=== PATIENT | male | born 1975 | race Caucasian/White ===

== ENCOUNTER 2018-11-10 04:31 | Inpatient (IN) | payer SELFPAY ==
[2018-11-10] VITALS (14 sets, daily range): BP systolic 149–162; BP diastolic 99–115; PULSE 78–105; RESP 14–24; TEMP 36.6–37; O2SAT 95–100; BMI 26.9; BMI 26.6
--- NOTE | 2018-11-10 05:01 | DI.US.S_ITS ---
PROCEDURE: US ABDOMEN COMPLETE INDICATIONS: PANCREATITIS; SEVERE EPIGASTRIC PAIN TECHNIQUE: Real-time scanning was performed of the abdominal and retroperitoneal organs, with image documentation. COMPARISON: [facility], CT, CT ABD PELVIS W CON, 03/27/2016, 20:27. FINDINGS: Liver: Liver is mildly enlarged measuring 20 cm in long axis and homogeneous in echotexture. Gallbladder: Gallbladder is sonographically normal. No gallstones. No gallbladder wall thickening. No pericholecystic fluid. No sonographic Waggoner sign. Biliary ducts: Intrahepatic bile ducts are non-dilated. Extrahepatic bile duct caliber measures 5.6 mm. Normal is 6-7 mm or less in diameter, or 10 mm or less post-cholecystectomy. Pancreas: There is a 1.2 x 1.2 x 1.1 cm lesion with mixed echogenicity in the body of the pancreas which may correspond to hypoattenuating lesion identified by prior CT scan. Doppler evaluation demonstrates no definite internal vascularity associated with the lesion. Spleen: Spleen is normal in size and homogeneous in echotexture. Kidneys: Kidneys are normal in size and echotexture. Right kidney measures 14.1 cm long; left kidney measures 13.9 cm long. No hydronephrosis or nephrolithiasis. No solid masses. Aorta: Visualized aorta is normal in caliber at less than 3 cm. Iliacs: Proximal common iliac arteries are normal in caliber at less than 2.5 cm. IVC: Intrahepatic inferior vena cava is patent. Miscellaneous: No free abdominal fluid. IMPRESSION: 1. Mild hepatomegaly. 2. 1.2 x 1.2 x 1.1 cm hypoechoic lesion with internal calcifications in the body of the pancreas. Recommend CT scan of the abdomen with and without contrast (pancreatic protocol) or MRI with and without contrast (pancreatic protocol) for definitive characterization the finding. 3. No sonographic evidence of cholelithiasis or cholecystitis. 4. No hydronephrosis Dictated by: Lizeth Lambert MD, PhD on 11/10/2018 at 9:01 Approved by: Lizeth Lambert MD, PhD on 11/10/2018 at 9:06
[2018-11-10] MEDS: HYDROMORPHONE 1 MG INJ IV ×3 (05:05→07:27)
[2018-11-10] MEDS: ONDANSETRON 4 MG/2 ML INJ IV (05:06)
--- NOTE | 2018-11-10 05:18 | ED_ITS ---
HPI - Abdominal Pain General Chief Complaint: Abdominal Pain Stated Complaint: STATES PANCREATITIS, BAD Time Seen by Provider: 11/10/18 04:35 Source: patient Mode of arrival: ambulatory Limitations: no limitations History of Present Illness HPI narrative: 42-year-old male smoker with a history of alcoholic pancreatitis presents with 10/10 epigastric pain with radiation to his. It is associated with nausea and vomiting. his symptoms are made worse motion and eating and drinking. He has 4 episodes of pancreatitis in the and this is very consistent with prior episodes. Never had any abdominal surgeries. Fever, shaking chills. Any and is otherwise well free of complaints MD complaint: abdominal pain Onset (ago): hour(s) Pain Consistency: constant Location: epigastric Severity: severe Severity scale (1-10): 10 Quality: stabbing and sharp Radiation: back Relieving factors: nothing Exacerbating factors: eating and movement Context: history of similar episodes Associated symptoms: nausea and vomiting Related Data Allergies Allergy/AdvReac Type Severity Reaction Status Date / Time No Known Drug Allergies Allergy Verified 11/10/18 05:12 Review of Systems Constitutional Denies chills, Denies fever(s), Denies lethargy and Denies weakness Eyes Denies change in vision, Denies eye discharge, Denies irritation and Denies loss of vision ENT Ears, Nose, Mouth, and Throat: Denies change in voice, Denies neck pain and Denies sore throat Cardiovascular Denies chest pain, Denies irregular heart rhythm, Denies lightheadedness, Denies palpitations, Denies dyspnea, Denies dyspnea on exertion and Denies orthopnea Respiratory Denies cough, Denies dyspnea, Denies dyspnea on exertion and Denies wheezing Gastrointestinal Gastrointestinal: Reports abdominal pain, Denies change in bowel habits, Denies diarrhea, Reports nausea and Reports vomiting Genitourinary Denies hematuria, Denies flank pain, Denies urinary incontinence and Denies urinary urgency Musculoskeletal Denies neck pain Integumentary/Breasts Denies pruritus, Denies erythema, Denies rash and Denies wounds Neurologic Denies confusion, Denies loss of vision and Denies weakness Psychiatric Denies anxiety, Denies confusion, Denies depression, Denies homicidal ideation and Denies suicidal ideation Endocrine Denies palpitations Hematologic/Lymphatic Denies easy bruising Allergic/Immunologic Denies wheezing FOR[facility]LY [facility], [facility] Medical History (Updated 11/10/18 @ 05:51 by Ajay Garcia DO) Pancreatitis (Acute) Social History Smoking Status: Current every day smoker Social History Smoking Status: Current every day smoker Exam Narrative Exam Narrative: GENERAL: 42-year-old male appears stated age, obviously very uncomfortable and clutching his upper abdomen HEAD: Atraumatic. Normocephalic. No temporal or scalp tenderness. EYES: Pupils equal round and reactive. Extraocular motions intact. No scleral icterus. No injection or drainage. ENT: Nose without bleeding, purulent drainage or septal hematoma. Throat without erythema, tonsillar hypertrophy or exudate. Uvula midline. Airway patent. NECK: Trachea midline. No JVD or lymphadenopathy. Supple, nontender, no meningeal signs. CARDIOVASCULAR: Regular rate and rhythm without murmurs, gallops, or rubs. RESPIRATORY: Clear to auscultation. Breath sounds equal bilaterally. No wheezes, rales, or rhonchi. GASTROINTESTINAL: Abdomen soft, severe epigastric tenderness to palpation, nond istended. No hepato-splenomegaly, or palpable masses. No guarding. EXTREMITIES: No clubbing, cyanosis, or edema. No joint tenderness, effusion, or edema noted. BACK: Nontender without deformity or crepitance. No flank tenderness. NEURO: AOx3. SKIN: No rash or erythema. Initial Vital Signs Initial Vital Signs: Vital Signs Temperature 98.4 F 11/10/18 04:47 Pulse Rate 105 H 11/10/18 04:47 Respiratory Rate 24 11/10/18 04:47 Blood Pressure 153/104 H 11/10/18 04:47 Pulse Oximetry 100 11/10/18 04:47 Course Orders Ordered: ED Orders 11/10/18 05:00 Complete Blood Count AUTO DIFF Stat Comprehensive Metabolic Panel Stat Ethanol (ETOH) Stat Lactate Dehydrogenase Stat Lipase Stat 11/10/18 05:01 US abdomen complete Stat Potassium Chloride 40 meq/ (Sodium Chloride) 520 mls @ 130 mls/hr IV NOW ONE Stop: 11/10/18 09:38 Last Admin: 11/10/18 05:59 Dose: 130 mls/hr Sodium Chloride (Normal Saline 0.9%) 1,000 mls @ 1,000 mls/hr IV BOLUS ONE Stop: 11/10/18 06:53 Last Admin: 11/10/18 06:00 Dose: 1,000 mls/hr Discontinued Medications Hydromorphone HCl (Dilaudid) 1 mg IV Q15M PRN PRN Reason: Pain, Severe (7-10) Last Admin: 11/10/18 05:47 Dose: 1 mg Admin: 11/10/18 05:05 Dose: 1 mg Sodium Chloride (Normal Saline 0.9%) 500 mls @ 1,000 mls/hr IV BOLUS ONE Stop: 11/10/18 05:27 Last Admin: 11/10/18 05:58 Dose: Not Given Sodium Chloride (Normal Saline 0.9%) 1,000 mls @ 1,000 mls/hr IV BOLUS ONE Stop: 11/10/18 06:11 Last Infusion: 11/10/18 06:00 Dose: 0 mls/hr Admin: 11/10/18 05:50 Dose: 1,000 mls/hr Ondansetron HCl (Zofran) 4 mg IV NOW ONE Stop: 11/10/18 04:59 Last Admin: 11/10/18 05:06 Dose: 4 mg Reevaluation(s) Reevaluation #1: Patient has epigastric pain, worsened with any oral intake, and is obviously intolerant of liquid or oral pain meds. He will require hospitalization for fluid hydration, pain control and stabilization of his condition Consultations Consultation #1: Hospitalist is happy to accept Vital Signs - 8 hr 11/10/18 04:47 11/10/18 05:28 Temperature 98.4 F Pulse Rate 105 H 91 H Respiratory Rate 24 Blood Pressure 153/104 H Blood Pressure [Left Arm] 149/110 H Pulse Oximetry 100 95 MDM - Abdominal Pain Lab Data Result diagrams: 11/10/18 05:00 11/10/18 05:00 Lab Results 11/10/18 11/10/18 11/10/18 Range/Units 05:00 05:00 05:00 WBC 10.8 (4.5-11.0) X10^3/uL RBC 4.17 L (4.5-5.9) X10^6/uL Hgb 13.6 (13.5-17.5) g/dL Hct 38.1 L (41-53) % MCV 91.2 (80-100) fL MCH 32.7 (26-34) PG MCHC 35.9 (30-36) % RDW 12.8 (11.6-14.8) % Plt Count 121 L (150-400) X10^3/uL Neut % (Auto) 82.5 H (50-75) % Lymph % (Auto) 11.0 L (25-40) % Jay % (Auto) 5.9 (3-14) % Eos % (Auto) 0.5 L (2-4) % Baso % (Auto) 0.1 (0-2) % Neut # (Auto) 8900 H (3187-5891) /uL Lymph # (Auto) 1200 (5011-1561) /uL Jay # (Auto) 600 (0-900) /uL Eos # (Auto) 0 (0-450) /uL Baso # (Auto) 0 (0-100) /uL Sodium 133 L (137-145) mmol/L Potassium 3.0 L (3.4-5.1) mmol/L Chloride 87 L (98-107) mmol/L Carbon Dioxide 28 (22-32) mmol/L BUN 27 H (9-20) mg/dL Creatinine 1.00 (0.66-1.25) mg/dL Estimated GFR > 60.0 (>60) mL/min BUN/Creatinine Ratio 27.0 H (6-22) Glucose 319 H (70-100) mg/dL Calcium 9.3 (8.4-10.2) mg/dL Total Bilirubin 2.0 H (0.2-1.3) mg/dL AST 39 (17-59) IU/L ALT 25 (21-72) IU/L Alkaline Phosphatase 94 (38-126) U/L Lactate Dehydrogenase 421 (313-618) U/L Total Protein 8.0 (6.3-8.2) g/dL Albumin 4.7 (3.5-5.0) g/dL Globulin 3.3 (1.7-4.1) g/dL Albumin/Globulin Ratio 1.4 (1.0-2.8) Lipase 1641 H (23-300) U/L Ethyl Alcohol mg/dL 11/10/18 Range/Units 05:00 WBC (4.5-11.0) X10^3/uL RBC (4.5-5.9) X10^6/uL Hgb (13.5-17.5) g/dL Hct (41-53) % MCV (80-100) fL MCH (26-34) PG MCHC (30-36) % RDW (11.6-14.8) % Plt Count (150-400) X10^3/uL Neut % (Auto) (50-75) % Lymph % (Auto) (25-40) % Jay % (Auto) (3-14) % Eos % (Auto) (2-4) % Baso % (Auto) (0-2) % Neut # (Auto) (5183-7957) /uL Lymph # (Auto) (5211-2177) /uL Jay # (Auto) (0-900) /uL Eos # (Auto) (0-450) /uL Baso # (Auto) (0-100) /uL Sodium (137-145) mmol/L Potassium (3.4-5.1) mmol/L Chloride (98-107) mmol/L Carbon Dioxide (22-32) mmol/L BUN (9-20) mg/dL Creatinine (0.66-1.25) mg/dL Estimated GFR (>60) mL/min BUN/Creatinine Ratio (6-22) Glucose (70-100) mg/dL Calcium (8.4-10.2) mg/dL Total Bilirubin (0.2-1.3) mg/dL AST (17-59) IU/L ALT (21-72) IU/L Alkaline Phosphatase (38-126) U/L Lactate Dehydrogenase (313-618) U/L Total Protein (6.3-8.2) g/dL Albumin (3.5-5.0) g/dL Globulin (1.7-4.1) g/dL Albumin/Globulin Ratio (1.0-2.8) Lipase (23-300) U/L Ethyl Alcohol < 10 mg/dL Imaging Data US - abdomen: Radiologist's impression: Prominent pancreas, no GB obstruction Discharge Plan Departure Patient Disposition: Admitted As Inpatient Clinical Impression: Acute hypokalemia Pancreatitis Qualifiers: Chronicity: acute Pancreatitis type: alcohol induced Acute pancreatitis complication: unspecified Qualified Code(s): K85.20 - Alcohol induced acute pancreatitis without necrosis or infection
[2018-11-10 05:22] LABS: Alanine Aminotransferase 25 IU/L (21-72); Albumin 4.7 g/dL (3.5-5.0); Albumin Globulin Ratio 1.4 (1.0-2.8); Alkaline Phosphatase 94 U/L (38-126); Aspartate Aminotransferase 39 IU/L (17-59); Blood Urea Nitrogen 27 mg/dL (9-20); Calcium 9.3 mg/dL (8.4-10.2); Carbon Dioxide 28 mmol/L (22-32); Chloride 87 mmol/L (98-107); Estimated Glomerular Filt Rate > 60.0 mL/min (>60); Globulin 3.3 g/dL (1.7-4.1); Glucose 319 mg/dL (70-100); HEMOLYSIS < 15 (0-50); Lipase 1641 U/L (23-300); Sodium 133 mmol/L (137-145)
[2018-11-10 05:23] LABS: Ethanol (ETOH) < 10 mg/dL; Lactate Dehydrogenase 421 U/L (313-618)
[2018-11-10 05:25] LABS: Add Manual Diff / Slide Review NO; Basophils Absolute Auto 0 /uL (0-100); Basophils Percent Auto 0.1 % (0-2); Eosinophils Absolute Auto 0 /uL (0-450); Eosinophils Percent Auto 0.5 % (2-4); Hematocrit 38.1 % (41-53); Hemoglobin 13.6 g/dL (13.5-17.5); Lymphocytes Absolute Auto 1200 /uL (1100-4500); Mean Corpuscular HGB Conc 35.9 % (30-36); Mean Corpuscular Hemoglobin 32.7 PG (26-34); Mean Corpuscular Volume 91.2 fL (80-100); Monocytes Absolute Auto 600 /uL (0-900); Monocytes Percent Auto 5.9 % (3-14); Neutrophils Absolute Auto 8900 /uL (1500-7000); Neutrophils Percent Auto 82.5 % (50-75); Platelet Count 121 X10^3/uL (150-400); Red Blood Cell Count 4.17 X10^6/uL (4.5-5.9); Red Cell Distribution Width 12.8 % (11.6-14.8); White Blood Cell Count 10.8 X10^3/uL (4.5-11.0)
[2018-11-10] MEDS: SODIUM CHLORIDE 0.9% 1,000 ML 1000 ML IV ×2 (05:50→06:00)
[2018-11-10] MEDS: POTASSIUM CHLORIDE 40 MEQ in SODIUM CHLORIDE 0.9% 500 ML 130 ML IV (05:59)
[2018-11-10] MEDS: HYDROMORPHONE PCA (6MG/30ML) 6 MG/30 ML PCA.VIAL IV ×3 (08:06→20:49)
[2018-11-10] MEDS: KCL 40 MEQ IN NS 1,000 ML 150 MEQ IV ×2 (08:18→18:16)
--- NOTE | 2018-11-10 08:36 | CM.DANOTE ---
DCP: Case received, EMR reviewed and met with patient. Introduced self and role. DCP template completed with information currently available. Patient is a 42 year old male who admitted early this morning to the care of the hospitalist team. PCP: None at this time, but will start working at [facility], Dr. Huynh works at this facility. Payer: Unknown at this time, patient stated that he should be still insured from his last job in [place], and will obtain information. Patient came to hospital due to abdominal discomfort. He has history of Pancreatitis, alcohol induced. Met briefly with patient, alert and oriented, independent. Patient just moved here from the [facility], due to a new job at [facility]. Discussed insurance, and he stated that he will obtain information from his last job. He has no primary provider as of yet, but Dr. Huynh is physician at [facility], in which patient is familiar with. P: DCP to continue to follow closely. Can provide alternate physician information in the area, but will need to address insurance as well. Jessica Maldonado, GUALBERTO/Gift Shop Assistant
[2018-11-10] MEDS: HYDROMORPHONE 2 MG INJ IV ×2 (10:00→14:26)
--- NOTE | 2018-11-10 15:43 | P.HP_ITS ---
History of Present Illness Date Patient Seen: 11/10/18 Chief complaint: STATES PANCREATITIS, BAD Narrative: The patient is a 42-year-old male with a history of recurrent pancreatitis. He reports 4 episodes of pancreatitis each related to alcohol consumption. Patient has a history of hypertension and type 2 diabetes. He was in his usual state of health until Friday when he had a drink of by cart of MODLOFT 151 in addition to a 6 pack of beer. The patient noted some mid epigastric abdominal pain radiating to the back on Friday. He had some nausea but no vomiting. The pain was severe and intense. The pain he describes was similar to prior episodes of pancreatitis. He presented to the hospital for fu rther evaluation. In the hospital his lipase was elevated at over 1600. He was given IV hydration and pain medications. He was admitted to the hospital for further evaluation. The patient reports no hematemesis Melena or bright red blood per rectum. He has had no fever or chills. No cough or shortness of breath. Patient does not have a primary care physician. 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 Despite multiple episodes of pancreatitis patient denies any history of alcohol withdrawal. He specifically denies any DTs to include agitation tremor seizures or sweating. Patient History Medical History Diabetes type 2, controlled (Acute) Hypertension (Acute) Pancreatitis (Acute) Social History household members: none Smoking Status: Current every day smoker alcohol intake: current Family & Social History Family History (Updated 11/10/18 @ 15:42 by Agustina Merida MD) Mother Diabetes mellitus Social History: household members none Prior Living Arrangements Mobile home Safety & Behavioral: Feels Safe in Current Yes Environment Been Physically Hurt or No Threatened By a Person Suicidal Ideation Description None Tobacco & Substance use: Tobacco type cigarettes Smoking Status Current every day smoker alcohol intake current alcohol intake frequency a few times a week Substance Use Type does not use Meds Home Medications Medication Instructions Recorded Confirmed Type Woodward-3 1,000 mg PO DAILY 11/10/18 11/10/18 History aspirin 81 mg PO DAILY 11/10/18 11/10/18 History atorvastatin 80 mg PO BEDTIME 11/10/18 11/10/18 History insulin glargine [Lantus U-100 20 units SUBCUT DAILY 11/10/18 11/10/18 History Insulin] lisinopril-hydrochlorothiazide 1 tab PO DAILY 11/10/18 11/10/18 History metformin 1,000 mg PO BID 11/10/18 11/10/18 History Allergies Allergy/AdvReac Type Severity Reaction Status Date / Time No Known Drug Allergies Allergy Verified 11/10/18 05:12 Review of Systems Review of Systems All systems reviewed & are unremarkable except as noted in HPI and below Exam Vital Signs (past 8 hours): - 11/10/18 07:41 11/10/18 07:54 11/10/18 08:00 Temperature 97.9 F Pulse Rate 78 98 H Respiratory Rate 14 20 Blood Pressure 162/100 H 154/104 H Pulse Oximetry 98 98 11/10/18 11:00 Temperature 97.8 F Pulse Rate 99 H Respiratory Rate 18 Blood Pressure 160/107 H Pulse Oximetry 95 Oxygen Delivery Method Room Air Narrative Exam Narrative: Pleasant male comfortable and pain lying in bed HEENT: Normocephalic atraumatic extraocular muscles are intact oropharynx is clear neck is supple without adenopathy Lungs: Clear to auscultation Cardiac exam: Tachycardic regular rate and rhythm normal S1-S2 Abdomen: Soft, tender in the midepigastric area, no rebound tenderness, no board-like rigidity, no palpable mass Extremities: No edema Neurological exam: Cranial nerves 2-12 are intact sensations grossly intact strength is symmetric and equal in the upper lower extremities reflexes are brisk and equal, gait is not assessed Skin exam: No evidence of lesion Psychiatric exam: Patient is awake alert and appropriate no evidence of hallucination noted. Objective Labs Result Diagrams: 11/10/18 05:00 11/10/18 05:00 Labs: Laboratory Results - last 24 hr 11/10/18 11/10/18 11/10/18 05:00 05:00 05:00 WBC 10.8 RBC 4.17 L Hgb 13.6 Hct 38.1 L MCV 91.2 MCH 32.7 MCHC 35.9 RDW 12.8 Plt Count 121 L Neut % (Auto) 82.5 H Lymph % (Auto) 11.0 L [place] % (Auto) 5.9 Eos % (Auto) 0.5 L Baso % (Auto) 0.1 Neut # (Auto) 8900 H Lymph # (Auto) 1200 [place] # (Auto) 600 Eos # (Auto) 0 Baso # (Auto) 0 Sodium 133 L Potassium 3.0 L Chloride 87 L Carbon Dioxide 28 BUN 27 H Creatinine 1.00 Estimated GFR > 60.0 BUN/Creatinine Ratio 27.0 H Glucose 319 H Calcium 9.3 Total Bilirubin 2.0 H AST 39 ALT 25 Alkaline Phosphatase 94 Lactate Dehydrogenase 421 Total Protein 8.0 Albumin 4.7 Globulin 3.3 Albumin/Globulin Ratio 1.4 Lipase 1641 H Ethyl Alcohol 11/10/18 05:00 WBC RBC Hgb Hct MCV MCH MCHC RDW Plt Count Neut % (Auto) Lymph % (Auto) [place] % (Auto) Eos % (Auto) Baso % (Auto) Neut # (Auto) Lymph # (Auto) [place] # (Auto) Eos # (Auto) Baso # (Auto) Sodium Potassium Chloride Carbon Dioxide BUN Creatinine Estimated GFR BUN/Creatinine Ratio Glucose Calcium Total Bilirubin AST ALT Alkaline Phosphatase Lactate Dehydrogenase Total Protein Albumin Globulin Albumin/Globulin Ratio Lipase Ethyl Alcohol < 10 Assessment & Plan (1) Pancreatitis: Problem details: Patient admitted with abrupt onset of abdominal pain felt to be acute pancreatitis. This is present on admission. This is his 4th episode. I have instructed the patient that he needs to discontinue all alcoholic beverages in order to avoid further recurrences. 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 Qualifiers: Acute pancreatitis complication: unspecified Chronicity: acute Pancreatitis type: alcohol induced Qualified Code(s): K85.20 - Alcohol induced acute pancreatitis without necrosis or infection Current visit: Yes Status: Acute (2) Acute hypokalemia: Problem details: Acute hypokalemia, present on admission. Will replace with K riders. Current visit: Yes Status: Acute (3) Type 2 diabetes mellitus: Problem details: Type 2 diabetes, patient is on insulin. Will decrease his insulin to half his normal basal insulin and add bolus insulin as needed. Current visit: Yes Status: Acute (4) Hyperlipidemia: Problem details: Hyperlipidemia, chronic, present on admission will continue hold the statin at this time Current visit: Yes Status: Acute (5) Hypertension: Problem details: Hypertension, present on admission, will treat him with IV hydralazine for now Current visit: Yes Status: Acute (6) Alcohol dependence: Problem details: Alcohol dependence, no evidence of withdrawal, will start CIWA protocol if appropriate. Current visit: Yes Status: Acute Quality VTE Deep Vein Thrombosis/Pulmonary Embolism Present on Admission: No
[2018-11-10 16:43] LABS: Appearance Urine UA SL CLOUDY; Bilirubin Urine UA NEGATIVE (NEGATIVE); Color Urine UA ORANGE; Glucose Urine UA 2+ g/dL (Negative); Ketones Urine UA NEGATIVE (NEGATIVE); Leukocyte Esterase Urine UA NEGATIVE (NEGATIVE); Nitrite Urine UA NEGATIVE (Negative); Occult Blood Urine UA NEGATIVE (Negative); Protein Urine UA TRACE (Negative); Specific Gravity Urine UA 1.025 (1.000-1.035); Urobilinogen Urine UA 0.2 E.U./dL (0.2)
[2018-11-10 17:02] LABS: Bacteria Urine Occasional (0-1); Culture Indicated Urine Cult Not Indicated; Hyaline Casts Urine 1-5/LPF; Mucus Urine 1+ (Negative); RBC Urine 0-1/HPF (0-5/HPF); Squamous Epithelial Cell Urine 0-1 /HPF (0-5/HPF); WBC Urine 0-1/HPF (0-5/HPF)
[2018-11-10] MEDS: INSULIN ASPART 100 UNIT/ML INSULN PEN SUBCUT (17:13)
[2018-11-10] MEDS: HYDRALAZINE 20 MG/ML VIAL 10 MG IV (17:14)
--- NOTE | 2018-11-10 17:23 | PC.NURSE ---
maury shift- assumed care of pt from outgoing shift. PT awake and alert. reported unable to pee and had feeling of needing to. bladder scan showed [address]. In and out cath performed. 900 ml urine. UA sent to lab. Pt cooperative with care. Pt uses call hartley. up per self in room. does fall asleep. reports pain level of 0 with the IV dilaudid. Pt has non skid socks on. reiterated to call if needing assistance. will continue to monitor.
[2018-11-10] MEDS: INSULIN GLARGINE 100 UNIT/ML 3ML PEN 10 UNIT SUBCUT (21:33)
[2018-11-10] MEDS: PANTOPRAZOLE 40 MG VIAL IV (21:38)
[2018-11-11] VITALS (11 sets, daily range): BP systolic 126–155; BP diastolic 79–100; PULSE 79–104; RESP 16–18; TEMP 36.6–37.7; O2SAT 96–100
[2018-11-11] MEDS: HYDROMORPHONE PCA (6MG/30ML) 6 MG/30 ML PCA.VIAL IV ×2 (00:14→03:58)
[2018-11-11] MEDS: KCL 40 MEQ IN NS 1,000 ML 150 MEQ IV (01:00)
--- NOTE | 2018-11-11 06:38 | PC.NURSE ---
Pt is AxOx3, Hypertensive. Complaints of abdominal pain, feeling better than before. Used 9.5mg Dilaudid VICE PRESIDENT SALES total for shift. Patient ambulating in hallways and in room with no problem and no signs/symptoms of severe pain. No complaints of nausea. Pt unable to void after several attempts. Per Dr. Merida, leave in an indwelling soto if unable to void again. Did not void, 595mL showed in bladder scan. Catheter placed around 0130 last night, with some resistance felt during insertion.
[2018-11-11 06:41] LABS: Basophils Absolute Auto 0 /uL (0-100); Basophils Percent Auto 0.4 % (0-2); Eosinophils Absolute Auto 100 /uL (0-450); Eosinophils Percent Auto 1.3 % (2-4); Hemoglobin 11.4 g/dL (13.5-17.5); Lymphocytes Absolute Auto 1800 /uL (1100-4500); Monocytes Absolute Auto 500 /uL (0-900); White Blood Cell Count 8.5 X10^3/uL (4.5-11.0)
[2018-11-11 07:03] LABS: Alanine Aminotransferase 14 IU/L (21-72); Albumin Globulin Ratio 1.4 (1.0-2.8); Alkaline Phosphatase 64 U/L (38-126); Aspartate Aminotransferase 26 IU/L (17-59); Bilirubin Total 1.1 mg/dL (0.2-1.3); Blood Urea Nitrogen 12 mg/dL (9-20); Calcium 8.4 mg/dL (8.4-10.2); Carbon Dioxide 27 mmol/L (22-32); Chloride 96 mmol/L (98-107); Estimated Glomerular Filt Rate > 60.0 mL/min (>60); Globulin 2.9 g/dL (1.7-4.1); Glucose 121 mg/dL (70-100); HEMOLYSIS < 15 (0-50); Lipase 374 U/L (23-300); Potassium 3.7 mmol/L (3.4-5.1); Sodium 132 mmol/L (137-145); Total Protein 6.9 g/dL (6.3-8.2)
[2018-11-11 07:14] LABS: Add Manual Diff / Slide Review NO; Hematocrit 31.2 % (41-53); Mean Corpuscular HGB Conc 36.7 % (30-36); Mean Corpuscular Hemoglobin 33.5 PG (26-34); Mean Corpuscular Volume 91.4 fL (80-100); Monocytes Percent Auto 6.4 % (3-14); Neutrophils Absolute Auto 6000 /uL (1500-7000); Neutrophils Percent Auto 70.9 % (50-75); Platelet Count 69 X10^3/uL (150-400); Red Blood Cell Count 3.41 X10^6/uL (4.5-5.9); Red Cell Distribution Width 12.9 % (11.6-14.8)
[2018-11-11] MEDS: PANTOPRAZOLE 40 MG VIAL IV (09:30)
--- NOTE | 2018-11-11 10:46 | PM.PN.1 ---
Subjective Date Patient Seen: 11/11/18 Interval history: The patient is a 42-year-old male who was admitted to the hospital yesterday for acute pancreatitis. Today he reports his abdominal pain has improved. He continues to have some minimal midepigastric pain. he has no nausea or vomiting. He is anxious to advance his diet. He has not had any hematemesis or melena. Patient has had no symptoms of withdrawal. Specifically he has had no headache no tremor or hallucinations. Exam Vital Signs (past 8 hours): - 11/11/18 03:37 11/11/18 09:00 Temperature 98.8 F 98.7 F Pulse Rate 97 H 101 H Respiratory Rate 16 16 Blood Pressure 140/89 130/86 Pulse Oximetry 97 96 Oxygen Delivery Method Room Air Oxygen Flow Rate 0 Narrative Exam Narrative: Pleasant male resting comfortably Lungs: Clear to auscultation Cardiac exam: Regular rate rhythm normal S1-S2 Abdomen: Soft mildly tender at the mid epigastric area, no rebound tenderness, no palpable masses, no board-like rigidity Extremities: No edema Objective Labs Result Diagrams: 11/11/18 06:27 11/11/18 06:27 Labs: Laboratory Results - last 24 hr 11/10/18 11/11/18 11/11/18 16:10 06:27 06:27 WBC 8.5 RBC 3.41 L Hgb 11.4 L Hct 31.2 L MCV 91.4 MCH 33.5 MCHC 36.7 H RDW 12.9 Plt Count 69 L Neut % (Auto) 70.9 Lymph % (Auto) 21.0 L [place] % (Auto) 6.4 Eos % (Auto) 1.3 L Baso % (Auto) 0.4 Neut # (Auto) 6000 Lymph # (Auto) 1800 [place] # (Auto) 500 Eos # (Auto) 100 Baso # (Auto) 0 Sodium Potassium Chloride Carbon Dioxide BUN Creatinine Estimated GFR BUN/Creatinine Ratio Glucose Calcium Total Bilirubin AST ALT Alkaline Phosphatase Total Protein Albumin Globulin Albumin/Globulin Ratio Lipase 374 H D Urine Color Young Urine Appearance Sl cloudy Urine pH 5.0 Ur Specific [place] 1.025 Urine Protein Trace H Urine Glucose (UA) 2+ H Urine Ketones Negative Urine Occult Blood Negative Urine Nitrate Negative Urine Bilirubin Negative Urine Urobilinogen 0.2 Ur Leukocyte Esterase Negative Urine RBC 0-1/hpf Urine WBC 0-1/hpf Ur Squamous Epith Cells 0-1 /hpf Urine Bacteria Occasional (0-1) Hyaline Casts 1-5/lpf Urine Mucus 1+ H Ur Culture Indicated? Cult not indicated 11/11/18 06:27 WBC RBC Hgb Hct MCV MCH MCHC RDW Plt Count Neut % (Auto) Lymph % (Auto) [place] % (Auto) Eos % (Auto) Baso % (Auto) Neut # (Auto) Lymph # (Auto) [place] # (Auto) Eos # (Auto) Baso # (Auto) Sodium 132 L Potassium 3.7 Chloride 96 L Carbon Dioxide 27 BUN 12 Creatinine 0.50 L Estimated GFR > 60.0 BUN/Creatinine Ratio 24.0 H Glucose 121 H D Calcium 8.4 Total Bilirubin 1.1 AST 26 ALT 14 L Alkaline Phosphatase 64 Total Protein 6.9 Albumin 4.0 Globulin 2.9 Albumin/Globulin Ratio 1.4 Lipase Urine Color Urine Appearance Urine pH Ur Specific [place] Urine Protein Urine Glucose (UA) Urine Ketones Urine Occult Blood Urine Nitrate Urine Bilirubin Urine Urobilinogen Ur Leukocyte Esterase Urine RBC Urine WBC Ur Squamous Epith Cells Urine Bacteria Hyaline Casts Urine Mucus Ur Culture Indicated? Assessment & Plan (1) Hyponatremia: Problem details: Patient with acute hyponatremia. This is likely delusional related to his IV hydration. Will discontinue IV fluids and recheck in the morning. Current visit: Yes Status: Acute (2) Pancreatitis: Problem details: Patient admitted with abrupt onset of abdominal pain felt to be acute pancreatitis. This is present on admission. This is his 4th episode. I have instructed the patient that he needs to discontinue all alcoholic beverages in order to avoid further recurrences. The patient will be given IV fluids, started on Dilaudid YARDER, and given antiemetics. Patient has had improvement of his pancreatitis. His lipase is down to 374. The Dilaudid YARDER will be discontinued. The IV fluids will be discontinued. And will advance his diet to a clear liquid diet and then a diet as tolerated. Qualifiers: Acute pancreatitis complication: unspecified Chronicity: acute Pancreatitis type: alcohol induced Qualified Code(s): K85.20 - Alcohol induced acute pancreatitis without necrosis or infection Current visit: Yes Status: Acute (3) Acute hypokalemia: Problem details: Acute hypokalemia, present on admission. Will replace with K riders. Now resolved Current visit: Yes Status: Acute (4) Type 2 diabetes mellitus: Problem details: Type 2 diabetes, patient is on insulin. Will decrease his insulin to half his normal basal insulin and add bolus insulin as needed. Will resume his usual home insulin of 20 units of Lantus in addition to bolus insulin with meals. Current visit: Yes Status: Acute (5) Hyperlipidemia: Problem details: Hyperlipidemia, chronic, present on admission will continue hold the statin at this time Resume home medication Current visit: Yes Status: Acute (6) Hypertension: Problem details: Hypertension, present on admission, will treat him with IV hydralazine for now Will resume his home medication Current visit: Yes Status: Acute (7) Alcohol dependence: Problem details: Alcohol dependence, no evidence of withdrawal, will start CIWA protocol if appropriate. Current visit: Yes Status: Acute Assessment & Plan narrative: Anticipate discharge home tomorrow if he tolerates oral intake. Quality VTE Deep Vein Thrombosis/Pulmonary Embolism Present on Admission: No
[2018-11-11] MEDS: LISINOPRIL 20 MG TABLET PO (11:04)
[2018-11-11] MEDS: INSULIN ASPART 100 UNIT/ML INSULN PEN SUBCUT ×3 (12:05→21:02)
[2018-11-11] MEDS: HYDROCODONE/ACET 5/325 TABLET 2 TAB PO (13:15)
--- NOTE | 2018-11-11 15:22 | PC.NURSE ---
Addendum entered by Mercedes Poole R.N. 11/11/18 15:30: Pts bp at one point earlier this am 150/100. Given lisinopril and down to 120/70s. Asymptomatic with high bp. MD aware of increased bp Original Note: Pt manipulative all shift. Constantly asking for food when he knows that he is NPO. Tolerating ice chips but complains of L.mid quadrant pain. 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 Started on Clear Liquids and tolerated well. Pt has been getting his own coffee in the breakroom, reassured him that he is not to have creamer in his coffee as this is not a clear liquid. Pt wanted soto catheter out, explained to him that it was put in for urinary retention, he was upset that it had a small amount of leakage around urethra. Explained to pt that this may happen from time to time. Pt more calm. Pt anxious and inappropriate at times. Picks at his iv's and also catheter strap, which new one was applied. BS clear to ausculation and BT+x4. PT is appropriate at times. Given 2 vicodin earlier and pt just asked for his wallet to be unlocked from the safe. Passed on to maury shift.
[2018-11-11] MEDS: POLYVINYL ALCOHOL DROPS 1 DROPS EYE-BOTH (18:01)
[2018-11-11] MEDS: ATORVASTATIN 20 MG TABLET 80 MG PO (21:01)
[2018-11-11] MEDS: INSULIN GLARGINE 100 UNIT/ML 3ML PEN 20 UNIT SUBCUT (21:03)
--- NOTE | 2018-11-11 22:41 | PC.NURSE ---
Pt ate half a sandwich with minimal discomfort 2/10, then he ate the other half and had sharp throbbing pain to his LLQ abd for 15 minutes. Barry galvin at 1845, pt able to urinate afterwards.
[2018-11-12] VITALS (8 sets, daily range): BP systolic 128–152; BP diastolic 83–105; PULSE 75–86; RESP 16–18; TEMP 36.7–37; O2SAT 95–100
--- NOTE | 2018-11-12 00:26 | PC.NURSE ---
2300- Pt originally admit for pancreatitis, now on regular diet. CO some abdominal pain rating 2/10 on R side, started while he was eating his meal. Pt reports pain is tolerable. Hx of HTN, keeping a close eye on this in case PRN meds are needed. Barry was DC'd today, good output noted since removal; moving indep in room. VSS; saline locked. 0330- Pt's periph IV in L AC bloody and bothersome; R forearm IV flushes well so IV on L side removed. HTNsive w/ automatic cuff, checked manually and stable at this time.
[2018-11-12 06:10] LABS: Basophils Absolute Auto 0 /uL (0-100); Basophils Percent Auto 0.2 % (0-2); Eosinophils Absolute Auto 100 /uL (0-450); Eosinophils Percent Auto 1.5 % (2-4); Hematocrit 26.9 % (41-53); Hemoglobin 9.7 g/dL (13.5-17.5); Lymphocytes Absolute Auto 1100 /uL (1100-4500); Mean Corpuscular HGB Conc 36.2 % (30-36); Mean Corpuscular Hemoglobin 33.5 PG (26-34); Mean Corpuscular Volume 92.5 fL (80-100); Monocytes Absolute Auto 400 /uL (0-900); Neutrophils Absolute Auto 2700 /uL (1500-7000); Neutrophils Percent Auto 63.3 % (50-75); Red Blood Cell Count 2.91 X10^6/uL (4.5-5.9); Red Cell Distribution Width 12.6 % (11.6-14.8); White Blood Cell Count 4.2 X10^3/uL (4.5-11.0)
[2018-11-12 06:22] LABS: Add Manual Diff / Slide Review SLIDE REVIEW; Platelet Count 49 X10^3/uL (150-400)
[2018-11-12 06:31] LABS: RBC Morphology Normal Morphology
[2018-11-12 06:32] LABS: Blood Urea Nitrogen 8 mg/dL (9-20); Calcium 8.2 mg/dL (8.4-10.2); Carbon Dioxide 29 mmol/L (22-32); Chloride 96 mmol/L (98-107); Estimated Glomerular Filt Rate > 60.0 mL/min (>60); Glucose 150 mg/dL (70-100); HEMOLYSIS < 15 (0-50); Potassium 3.5 mmol/L (3.4-5.1); Sodium 134 mmol/L (137-145)
[2018-11-12] MEDS: INSULIN ASPART 100 UNIT/ML INSULN PEN SUBCUT ×4 (08:30→20:32)
[2018-11-12] MEDS: LISINOPRIL 20 MG TABLET PO (08:30)
[2018-11-12] MEDS: HYDROCODONE/ACET 5/325 TABLET 2 TAB PO (08:34)
[2018-11-12] MEDS: DEXTROSE 5%-0.45NS W/KCL 10MEQ 1,000 ML 125 MEQ IV (10:18)
[2018-11-12 10:20] LABS: Lipase 145 U/L (23-300)
--- NOTE | 2018-11-12 13:19 | P.PN_ITS ---
Subjective Date Patient Seen: 11/12/18 Interval history: Mr. mercado as 42-year-old male who presented with acute alcoholic pancreatitis. The patient had some improvement in symptomatology yesterday. However had after advancing his diet he develop recurrent abdominal pain. he is now placed on a clear liquid diet. IV fluids have been restarted. He will continue on his oral medications. Patient is agreeable to stay as he is more symptomatic. He has had no shakes, no tremor, no hallucinations. Exam Vital Signs (past 8 hours): - 11/12/18 07:00 11/12/18 08:26 11/12/18 11:15 Temperature 98.0 F 98.1 F Pulse Rate 83 84 Respiratory Rate 17 18 Blood Pressure 143/105 H 148/90 H Pulse Oximetry 95 100 97 Oxygen Delivery Method Room Air Oxygen Flow Rate 0 Narrative Exam Narrative: Ill appearing male somewhat on comfort Lungs: Clear to auscultation Cardiac exam: Regular rate and rhythm normal S1-S2 Abdomen: Soft tender in the midepigastric area no palpable mass S, no rebound tend S, no board-like rigidity Extremities: No edema Objective Labs Result Diagrams: 11/12/18 05:53 11/12/18 05:53 Labs: Laboratory Results - last 24 hr 11/12/18 11/12/18 11/12/18 05:53 05:53 05:53 WBC 4.2 L D RBC 2.91 L Hgb 9.7 L Hct 26.9 L MCV 92.5 MCH 33.5 MCHC 36.2 H RDW 12.6 Plt Count 49 L Neut % (Auto) 63.3 Lymph % (Auto) 26.0 [place] % (Auto) 9.0 Eos % (Auto) 1.5 L Baso % (Auto) 0.2 Neut # (Auto) 2700 Lymph # (Auto) 1100 [place] # (Auto) 400 Eos # (Auto) 100 Baso # (Auto) 0 RBC Morphology Normal morphology Sodium 134 L Potassium 3.5 Chloride 96 L Carbon Dioxide 29 BUN 8 L Creatinine 0.50 L Estimated GFR > 60.0 BUN/Creatinine Ratio 16.0 Glucose 150 H Calcium 8.2 L Lipase 145 D Assessment & Plan (1) Pancreatitis: Problem details: Patient admitted with abrupt onset of abdominal pain felt to be acute pancreatitis. This is present on admission. This is his 4th episode. I have instructed the patient that he needs to discontinue all alcoholic beverages in order to avoid further recurrences. The patient will be given IV fluids, started on Dilaudid ROVING INSPECTOR, and given antiemetics. Patient will be placed back on clear liquid diet, and IV fluids. He is on oral pain medication. Patient has had improvement of his pancreatitis. His lipase is down to 374. The Dilaudid ROVING INSPECTOR will be discontinued. The IV fluids will be discontinued. And will advance his diet to a clear liquid diet and then a diet as tolerated. Qualifiers: Acute pancreatitis complication: unspecified Chronicity: acute Pancreatitis type: alcohol induced Qualified Code(s): K85.20 - Alcohol induced acute pancreatitis without necrosis or infection Current visit: Yes Status: Acute (2) Hyponatremia: Problem details: Patient with acute hyponatremia. This is likely delusional related to his IV hydration. Will discontinue IV fluids and recheck in the morning. Will continue to follow. Current visit: Yes Status: Acute (3) Alcohol dependence: Problem details: Alcohol dependence, no evidence of withdrawal, will start CIWA protocol if appropriate. No evidence of alcohol withdrawal. Current visit: Yes Status: Acute (4) Hypertension: Problem details: Hypertension, present on admission, will treat him with IV hydralazine for now Will resume his home medication Current visit: Yes Status: Acute (5) Hyperlipidemia: Problem details: Hyperlipidemia, chronic, present on admission will continue hold the statin at this time Resume home medication Current visit: Yes Status: Acute (6) Type 2 diabetes mellitus: Problem details: Type 2 diabetes, patient is on insulin. Will decrease his insulin to half his normal basal insulin and add bolus insulin as needed. Will resume his usual home insulin of 20 units of Lantus in addition to bolus insulin with meals. Will adjust insulin accordingly. Current visit: Yes Status: Acute Quality VTE Deep Vein Thrombosis/Pulmonary Embolism Present on Admission: No
[2018-11-12] MEDS: KCL 20 MEQ IN NS 1,000 ML 150 MEQ IV (13:53)
[2018-11-12] MEDS: INSULIN GLARGINE 100 UNIT/ML 3ML PEN 20 UNIT SUBCUT (20:33)
[2018-11-12] MEDS: DOCUSATE 250 MG CAPSULE PO (20:34)
[2018-11-12] MEDS: ATORVASTATIN 20 MG TABLET 80 MG PO (20:34)
[2018-11-13 00:30] VITALS: O2SAT 99
[2018-11-13 00:40] VITALS: BP 148/94; PULSE 70; RESP 16; TEMP 36.7; O2SAT 99
--- NOTE | 2018-11-13 04:44 | PC.NURSE ---
Assumed care of pt at 2300 on 11/12/18. Pt sleeping during bedside hand-off. Awakens to voice for VS. Denies pain or nausea. Tolerating clear liquid diet and pt states he would like to try reg for breakfast. No order to advance as tolerated. Diet order to be addressed in AM when MD is on unit. Pt verbalized he will call for needs.
[2018-11-13 05:31] LABS: Add Manual Diff / Slide Review NO; Basophils Absolute Auto 0 /uL (0-100); Basophils Percent Auto 0.2 % (0-2); Eosinophils Absolute Auto 100 /uL (0-450); Eosinophils Percent Auto 1.8 % (2-4); Hematocrit 26.4 % (41-53); Hemoglobin 9.5 g/dL (13.5-17.5); Lymphocytes Absolute Auto 1200 /uL (1100-4500); Lymphocytes Percent Auto 38.2 % (25-40); Mean Corpuscular Hemoglobin 33.5 PG (26-34); Mean Corpuscular Volume 93.1 fL (80-100); Monocytes Absolute Auto 400 /uL (0-900); Monocytes Percent Auto 12.2 % (3-14); Neutrophils Absolute Auto 1500 /uL (1500-7000); Neutrophils Percent Auto 47.6 % (50-75); Platelet Count 63 X10^3/uL (150-400); Red Blood Cell Count 2.84 X10^6/uL (4.5-5.9); Red Cell Distribution Width 12.9 % (11.6-14.8); White Blood Cell Count 3.1 X10^3/uL (4.5-11.0)
[2018-11-13 05:37] LABS: Blood Urea Nitrogen 8 mg/dL (9-20); Calcium 8.7 mg/dL (8.4-10.2); Carbon Dioxide 32 mmol/L (22-32); Chloride 99 mmol/L (98-107); Estimated Glomerular Filt Rate > 60.0 mL/min (>60); Glucose 144 mg/dL (70-100); HEMOLYSIS < 15 (0-50); Potassium 3.5 mmol/L (3.4-5.1); Sodium 137 mmol/L (137-145)
[2018-11-13 06:14] VITALS: BP 146/84; PULSE 69; RESP 16; TEMP 36.8; O2SAT 99
[2018-11-13 08:00] VITALS: BP 148/101; PULSE 70; RESP 16; TEMP 36.3; O2SAT 98
[2018-11-13] MEDS: LISINOPRIL 20 MG TABLET PO (08:14)
[2018-11-13] MEDS: INSULIN ASPART 100 UNIT/ML INSULN PEN SUBCUT (08:14)
[2018-11-13 08:39] VITALS: O2SAT 96
--- NOTE | 2018-11-13 08:54 | P.DS_ITS ---
History of Present Illness Date Patient Seen: 11/10/18 Chief complaint: STATES PANCREATITIS, BAD Narrative: Written by Dr. Merida: The patient is a 42-year-old male with a history of recurrent pancreatitis. He reports 4 episodes of pancreatitis each related to alcohol consumption. Patient has a history of hypertension and type 2 diabetes. He was in his usual state of health until Friday when he had a drink of by cart of Bacardi 151 in addition to a 6 pack of beer. The patient noted some mid epigastric abdominal pain radiating to the back on Friday. He had some nausea but no vomiting. The pain was severe and intense. The pain he describes was similar to prior episodes of pancreatitis. He presented to the hospital for further evaluation. In the hospital his lipase was elevated at over 1600. He was given IV hydration and pain medications. He was admitted to the hospital for further evaluation. The patient reports no hematemesis Melena or bright red blood per rectum. He has had no fever or chills. No cough or shortness of breath. Patient does not have a primary care physician. 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 Despite multiple episodes of pancreatitis patient denies any history of alcohol withdrawal. He specifically denies any DTs to include agitation tremor seizures or sweating. Discharge Providers Date of admission: 11/10/18 06:42 Discharge Date: 11/13/18 Discharge provider: Jennifer Tadeo DO Summary Discharge Diagnosis: 1. Acute alcohol induced pancreatitis, present on admission. Resolved. 2. Acute hyponatremia, present on admission. Resolved. 3. Acute anemia and thrombocytopenia, present on admission. Improving. 4. Alcohol dependence, chronic, present on admission. Stable. 5. Hypertension, chronic, present on admission. Stable. 6. Hyperlipidemia, chronic, present on admission. Stable. 7. Diabetes mellitus type 2, insulin using, present on admission. Stable. Hospital Course: 1. Acute alcohol induced pancreatitis, present on admission. Resolved. -Patient admitted with abrupt onset of abdominal pain felt to be acute pancreatitis with lipase 1641. This is his 4th episode. I have instructed the patient that he needs to discontinue all alcoholic beverages in order to avoid further recurrences. -Patient received IV fluids, narcotics, and antiemetics. -Slowly advanced diet for which he is tolerating a soft and bland diet. 2. Acute hyponatremia, present on admission. Resolved. -Likely secondary to dehydration and dilutional related to his IV hydration. Now resolved. 3. Acute anemia and thrombocytopenia, present on admission. Improving. -Likely secondary to inflammatory response as well as dilutional from IV fluid hydration. -VSS, H&H, and platelets stable and improving. No signs of bleeding. 4. Alcohol dependence, chronic, present on admission. Stable. -No evidence of alcohol withdrawal. Did not start CIWA protocol. 5. Hypertension, chronic, present on admission. Stable. -Continued lisinopril 20 mg daily. Held HCTZ until time of discharge. -Ordered hydralazine as needed. 6. Hyperlipidemia, chronic, present on admission. Stable. -Continued atorvastatin 80 mg daily at bedtime. 7. Diabetes mellitus type 2, insulin using, present on admission. Stable. -Continued Lantus 20 units daily. -Continued ACHS blood glucose checks and low-dose correctional scale insulin. Status at Discharge Functional status at discharge: independent ambulation Overall status at discharge: patient is back to baseline Exam Vital Signs (past 8 hours): - 11/13/18 06:14 11/13/18 08:00 11/13/18 08:39 Temperature 98.2 F 97.3 F L Pulse Rate 69 70 Respiratory Rate 16 16 Blood Pressure 146/84 H 148/101 H Pulse Oximetry 99 98 96 Oxygen Delivery Method Room Air Oxygen Flow Rate 0 Narrative Exam Narrative: General: Middle-aged gentleman sitting in bed and in no acute distress, well- developed, well-nourished, appropriately interactive. HEENT: Normocephalic, atraumatic. External ears without defect. Pupils equal, round, and reactive to light. Anicteric sclerae, moist conjunctivae, and no lid lag. Cardiovascular: Regular rate and rhythm without murmurs, rubs, or gallops appreciated Pulmonary: Clear to auscultation bilaterally without crackles, wheezes, or rhonchi. Normal respiratory effort with no use of accessory muscles. Abdomen: Soft, bowel sounds present, nontender, nondistended. No hepatosplenomegaly or masses appreciated. Extremities: No clubbing, cyanosis, or edema. Skin: Normal temperature, turgor, and texture; no rash, ulcers, or subcutaneous nodules appreciated. Neurological: Cranial nerves grossly intact. Psychiatric: Normal mood and affect. Alert and oriented to person, place, and time. Objective Labs Result Diagrams: 11/13/18 05:15 11/13/18 05:15 Labs: Laboratory Results - last 24 hr 11/12/18 11/13/18 11/13/18 05:53 05:15 05:15 WBC 3.1 L RBC 2.84 L Hgb 9.5 L Hct 26.4 L MCV 93.1 MCH 33.5 MCHC 36.0 RDW 12.9 Plt Count 63 L Neut % (Auto) 47.6 L Lymph % (Auto) 38.2 [place] % (Auto) 12.2 Eos % (Auto) 1.8 L Baso % (Auto) 0.2 Neut # (Auto) 1500 Lymph # (Auto) 1200 [place] # (Auto) 400 Eos # (Auto) 100 Baso # (Auto) 0 Sodium 137 Potassium 3.5 Chloride 99 Carbon Dioxide 32 BUN 8 L Creatinine 0.50 L Estimated GFR > 60.0 BUN/Creatinine Ratio 16.0 Glucose 144 H Calcium 8.7 Lipase 145 D Discharge Plan Discharge Plan Patient Disposition: Home Discharge comment: You are being discharged home. Please follow up at your scheduled appointment for hospital follow-up. Please of abstain from alcohol indefinitely. Try to consume a low-fat, soft, bland diet for the next several days and advance slowly as tolerated. Discharge Med Rec/Prescriptions Prescriptions: Continued metformin 1,000 mg Tablet 1,000 mg PO BID RF: 0 atorvastatin 80 mg Tablet 80 mg PO BEDTIME RF: 0 Lantus U-100 Insulin 100 unit/mL Solution 20 units subcut DAILY RF: 0 aspirin 81 mg Tablet,Delayed Release (Dr/Ec) 81 mg PO DAILY RF: 0 lisinopril-hydrochlorothiazide 20-25 mg Tablet 1 tab PO DAILY RF: 0 Reading-3 1,000 mg 1,000 mg PO DAILY RF: 0 Follow up/Referrals: Pat Wild MD [Physician] - 1 Week Provider Discharge Instructions Diet: Diet as Tolerated Diet comment: soft and bland diet for the next several days, advance slowly as tolerated Activity: Activity as tolerated Visit Report/Discharge Packet Instructions: [place] Diet, Soft Diet Discharge Data Attending Provider: Alexander Aguiar Admit Date/Time: 11/10/18 06:42 Quality VTE Deep Vein Thrombosis/Pulmonary Embolism Present on Admission: No
[2018-11-13 10:43] LABS: Cholesterol 99 mg/dL (140-199); HDL Cholesterol 26 mg/dL (40-60); LDL Cholesterol Calculated 37 mg/dL (<100); Triglycerides 178 mg/dL (35-150)
--- NOTE | 2018-11-13 11:23 | PC.NURSE ---
Dayshift: Left unit at approx 1130. He wanted to ambulate home and insisted on this. Paperwork signed and all questions answered. Pt has all personal belongings. No new MD scrips.
--- NOTE | 2018-11-13 12:53 | CM.DPC ---
DCP: continued: case discussed in Team Rounds and Dr. Tadeo stated pt was eager for a d/c home and she considered him stable for same. EMR reviewed and then went to room to check in with pt. GUALBERTO Blue noted that pt had aleady left for home. He wished to walk there rather than wait for a friend left as planned when the d/c paperwork had been completed.
== END 2018-11-13 11:24 | disposition home or self-care (01) | DRG 439 ==
LOC: ED 05:40 → AC 08:02
PROVIDERS: Internal Medicine; Admitting Provider Nurse Practitioner Adult Health; Emergency Provider Emergency Medicine; Visit Provider Nurse Practitioner Adult Health
DX: K85.20 Alcohol induced acute pancreatitis without necrosis or infection (principal); E87.1 Hypo-osmolality and hyponatremia; D69.59 Other secondary thrombocytopenia; E87.6 Hypokalemia; F10.20 Alcohol dependence, uncomplicated; Y90.0 Blood alcohol level of less than 20 mg/100 ml; D64.89 Other specified anemias; I10 Essential (primary) hypertension; E11.9 Type 2 diabetes mellitus without complications; F17.210 Nicotine dependence, cigarettes, uncomplicated; Z79.4 Long term (current) use of insulin; E78.5 Hyperlipidemia, unspecified; R33.9 Retention of urine, unspecified
CPT/HCPCS: 36415; 36591; 76700; 80048; 80053; 80061; 80320; 81001; 82962; 83615; 83690; 85025; 96361; 96374; 96375; 96376; 99283; 99284; 99406; C9113; J0360; J1170; J2405; J3480

== ENCOUNTER 2019-07-21 13:36 | Observation (INO) | payer OTHER, SELFPAY ==
[2018-11-10 12:17] VITALS: BMI 26.6
[2019-07-21] VITALS (22 sets, daily range): BP systolic 69–146; BP diastolic 40–97; PULSE 80–97; RESP 12–26; TEMP 36.9–37.3; O2SAT 95–100; BMI 26.2
--- NOTE | 2019-07-21 14:06 | PC.NURSE ---
onset of lower leg numbness this morning at 3am, hx of DM, hypertension, high cholesterol denies trauma or injury.
--- NOTE | 2019-07-21 14:19 | PC.NURSE ---
denies lightheadedness, shortness of breath, chest pain, denies nausea. +lower leg numbness bilateral
[2019-07-21] MEDS: SODIUM CHLORIDE 0.9% 1,000 ML 1000 ML IV (14:21)
[2019-07-21 14:25] LABS: Add Manual Diff / Slide Review NO; Basophils Absolute Auto 0 /uL (0-100); Basophils Percent Auto 0.4 % (0-2); Eosinophils Absolute Auto 200 /uL (0-450); Eosinophils Percent Auto 1.8 % (2-4); Hematocrit 40.1 % (41-53); Lymphocytes Absolute Auto 4500 /uL (1100-4500); Lymphocytes Percent Auto 48.5 % (25-40); Mean Corpuscular HGB Conc 34.9 % (30-36); Mean Corpuscular Hemoglobin 33.2 PG (26-34); Mean Corpuscular Volume 95.1 fL (80-100); Monocytes Absolute Auto 700 /uL (0-900); Monocytes Percent Auto 8.1 % (3-14); Neutrophils Absolute Auto 3800 /uL (1500-7000); Neutrophils Percent Auto 41.2 % (50-75); Platelet Count 131 X10^3/uL (150-400); Red Blood Cell Count 4.21 X10^6/uL (4.5-5.9); Red Cell Distribution Width 13.5 % (11.6-14.8); White Blood Cell Count 9.2 X10^3/uL (4.5-11.0)
[2019-07-21 14:36] LABS: Lipase 218 U/L (23-300)
[2019-07-21 14:37] LABS: Alanine Aminotransferase 12 IU/L (<50); Albumin 4.3 g/dL (3.5-5.0); Albumin Globulin Ratio 1.5 (1.0-2.8); Alkaline Phosphatase 121 U/L (38-126); Aspartate Aminotransferase 30 IU/L (17-59); BUN Creatinine Ratio 15.6 (6-22); Bilirubin Total 0.4 mg/dL (0.2-1.3); Blood Urea Nitrogen 39 mg/dL (9-20); Calcium 9.1 mg/dL (8.4-10.2); Carbon Dioxide 25 mmol/L (22-32); Chloride 83 mmol/L (98-107); Estimated Glomerular Filt Rate 28.1 mL/min (>60); Globulin 2.9 g/dL (1.7-4.1); Glucose 475 mg/dL (70-100); HEMOLYSIS < 15 (0-50); Potassium 3.9 mmol/L (3.4-5.1); Sodium 131 mmol/L (137-145); Total Protein 7.2 g/dL (6.3-8.2)
--- NOTE | 2019-07-21 14:44 | DI.CT.S_ITS ---
PROCEDURE: CT HEAD/BRAIN WO CON INDICATIONS: localized bilateral foot weakness and sensation TECHNIQUE: Noncontrast 4.5 mm thick angled axial sections acquired from the foramen magnum to the vertex, with coronal and sagittal reformats. For radiation dose reduction, the following was used: automated exposure control, adjustment of mA and/or kV according to patient size. COMPARISON: None. FINDINGS: Image quality: Excellent. CSF spaces: Basal cisterns are patent. No extra-axial fluid collections. Ventricles are normal in size and shape. Brain: No midline shift. No intracranial masses or hemorrhage. Ortiz-white matter interface is normal. Skull and face: Calvarium and visualized facial bones are intact, without suspicious lesions. Sinuses: Visualized sinuses and mastoids are clear. IMPRESSION: No acute intracranial abnormality. Comment: Findings were discussed with Juanpablo Parada at the time of dictation. Dictated by: Real Elliott M.D. on 07/21/2019 at 15:23 Approved by: Real Elliott M.D. on 07/21/2019 at 15:26
--- NOTE | 2019-07-21 14:44 | DI.RAD.S_ITS ---
PROCEDURE: XR LUMBAR SPINE 2-3V INDICATIONS: sudden onset of bilateral foot weakness and decreased sensation TECHNIQUE: 3 views of the lumbar spine were acquired. COMPARISON: None. FINDINGS: Bones: 5 [id number] vertebrae are present. There is normal bony alignment. No vertebral body compression fractures. No suspicious bony lesions. Soft tissues: Overlying bowel gas pattern is normal. No suspicious soft tissue calcifications. Aortic vascular calcification. IMPRESSION: No acute osseous abnormality. Dictated by: Real Elliott M.D. on 07/21/2019 at 15:26 Approved by: Real Elliott M.D. on 07/21/2019 at 15:28
[2019-07-21] MEDS: MAGNESIUM SULFATE 2 GM, FOLIC ACID 1 MG, THIAMINE 100 MG, MULTIVITAMIN 10 ML in SODIUM ... IV (14:46)
[2019-07-21 14:49] LABS: Ethanol (ETOH) 322 mg/dL
--- NOTE | 2019-07-21 16:08 | DI.CT.S_ITS ---
PROCEDURE: CT LUMBAR SPINE WO CON INDICATIONS: bilateral foot weakness and numbness TECHNIQUE: Noncontrast 3 mm thick sections acquired from the T12 level to the sacrum. Sagittal and coronal reformats were constructed. For radiation dose reduction, the following was used: automated exposure control. COMPARISON: [facility], CR, XR LUMBAR SPINE 2-3V, 07/21/2019, 14:52. FINDINGS: Image quality: Excellent. Bones: There is normal bony alignment. No acute vertebral body compression fractures. No suspicious lytic or blastic bony lesions. Central spinal caliber is of normal overall caliber. No pars defects. T12-L1: Normal. L1-L2: Normal. L2-L3: The disc height is well-preserved. Moderate disc bulge is seen, with a central disc protrusion. There is moderate bilateral neural foraminal narrowing seen, left worse than right. Moderate central canal narrowing is seen. L3-L4: The disc height is well-preserved. Moderate disc bulge is seen, with a central disc protrusion. There is calcification seen along the posterior aspect of the annulus fibrosis, as on series 5 image 37. There is mild to moderate bilateral neural foraminal narrowing seen. Moderate central canal narrowing is seen. L4-L5: The disc height is relatively well-preserved. Moderate disc bulge is seen, with a central disc protrusion present. There is calcification seen along the posterior aspect of the annulus fibrosis, as on series 5 image 37. There is moderate bilateral neural foraminal narrowing seen. Moderate central canal narrowing is seen. L5-S1: Mild to moderate loss of disc height is seen. Endplate irregularity and sclerosis can be seen. Posteriorly projected endplate osteophytes are seen. Moderate disc bulge is seen, with a central disc protrusion present. [id number] facet hypertrophy is seen. There is at least moderate bilateral neural foraminal narrowing seen. Moderate central canal narrowing is seen. Soft tissues: No retroperitoneal masses or hematomas. Visualized aorta is normal in caliber. Mild bilateral hydronephrosis and hydroureter can be seen (left worse than right), without an obstructing process seen. IMPRESSION: No definite, acute abnormality is seen. Lower lumbar spine degenerative changes are seen, which are overall most prominent at the L5-S1 level. Incidental note is made of mild bilateral hydronephrosis and hydroureter, without an obstructing process seen. Dictated by: Murphy Joseph M.D. on 07/21/2019 at 15:53 Approved by: Murphy Joseph M.D. on 07/21/2019 at 15:58
[2019-07-21 16:11] LABS: Bacteria Urine None Seen; RBC Urine None Seen (0-5/HPF); WBC Urine None Seen (0-5/HPF)
--- NOTE | 2019-07-21 16:15 | ED_ITS ---
HPI - Extremity Problem <TOY Quarles - Last Filed: 07/21/19 20:05> General Chief complaint: Extremity Problem,Nontraumatic Stated complaint: FOOT DROP BOTH Time Seen by Provider: 07/21/19 13:48 Source: patient Mode of arrival: Wheelchair Limitations: no limitations History of Present Illness HPI Narrative: This is a 43-year-old male, smoker, who presents to ED with his friend with chief complain of decreased bilateral foot sensation and weakness once he woke up this morning. Patient reports he has history of diabetes and peripheral neuropathy and daily he has sensation of burning in bilateral feet but now he feels numbness and can't feel his feet or burning sensation. He attempted to walk this morning but he couldn't control his foot and fell forward and hit his face on a cushion couch and he called his friend for help. Patient denies losing consciousness from falling. Patient denies headache, vision change, speech difficulty, weakness to his upper extremities. Patient has history of hypertension, insulin-dependent diabetes using Lantus 22 units in the morning, peripheral neuropathy/paresthesia. 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 Patient denies fever, chills, nausea or vomiting or recent viral illnesses. Patient denies bladder or stool incontinence. Related Data Home Medications Medication Instructions Recorded Confirmed Lantus U-100 Insulin 22 units SUBCUT DAILY 11/10/18 07/21/19 Palmer-3 1,000 mg PO DAILY 11/10/18 07/21/19 aspirin 81 mg PO DAILY 11/10/18 07/21/19 atorvastatin 80 mg PO BEDTIME 11/10/18 07/21/19 lisinopril-hydrochlorothiazide 1 tab PO DAILY 11/10/18 07/21/19 metformin 1,000 mg PO BID 11/10/18 07/21/19 Allergies Allergy/AdvReac Type Severity Reaction Status Date / Time No Known Drug Allergies Allergy Verified 07/21/19 13:53 Review of Systems <TOY Quarles - Last Filed: 07/21/19 20:05> Review of Systems Narrative: General: Denies fever, chills, fatigue, malaise, sweats. HEENT: Denies sinus pain, ear pain, sore throat, difficulty swallowing, dizziness. Respiratory: Denies dyspnea, cough, wheezing, hemoptysis, sputum. Cardiovascular: Denies chest pain, palpitations, orthopnea, edema. Gastrointestinal: Denies nausea, vomiting, abdominal pain, diarrhea, constipation, melena. : Denies dysuria, frequency, incontinence, hematuria, urinary retention. Musculoskeletal: See HPI Skin: Denies rash, skin lesions, or other. Neurologic: Reports bilateral foot weakness. Denies headache, numbness, change in speech, confusion, seizures, incoordination. Psychiatric: No concerning psychosocial issues. 12-point review of systems is negative except for those stated above. Patient History <TOY Quarles - Last Filed: 07/21/19 20:05> Medical History Alcohol dependence (Inactive) Current every day smoker (Acute) Diabetes type 2, controlled (Acute) Hyperlipidemia (Inactive) Hypertension (Acute) Numbness in feet (Inactive) Pancreatitis (Acute) Surgical History History of toe surgery (Acute) Family History Father No known problems Mother Diabetes mellitus Social History household members: none Smoking Status: Current every day smoker alcohol intake: current Smoking Status: Current every day smoker alcohol intake frequency: 0-2 drinks per day Substance Use Type: does not use Exam <TOY Quarles - Last Filed: 07/21/19 20:05> Narrative Exam Narrative: GEN: Alert, oriented x 3, well appearing and nourished, and in no acute distress. Head: Normal cephalic, atraumatic. No scalp or temporal tenderness, palpable mass or rash. EYES: Pupils are equal, round, and reactive to light and accommodation. Extraocular muscles are intact bilaterally. There is no subconjunctival hemorrhage, exudate and sclera non-icteric. ENT: Bilateral auditory canals and tympanic membranes clear. Hearing grossly intact. Nose without bleeding, purulent discharge, septal hematoma or deviation. Turbinate without erythema or swelling. Facial sinuses nontender to palpate. Mucous membrane moist, no mucosal lesion. Throat without erythema, tonsillar hypertrophy or exudate. Uvula in midline, airway patent. Neck: Trachea in midline. No JVD, non-tender without lymphadenopathy. No masses or thyroid megaly. Supple, non-tender and no meningeal signs. CARDIAC: Normal regular rate and rhythm without murmurs, gallops, or rubs. No chest wall tenderness. No peripheral edema, cyanosis or pallor. Capillary refill is less than 2 seconds. No carotid bruits. Difficulty palpating DP pulses but intact PD pulses. Toes warm to touch with brisk cap refills. RESPIRATORY: Lungs are cleat to auscultate bilaterally. No cough, wheezes, rales, or rhonchi. No stridor, respiratory distress, increase work of breathing, or accessary muscle used. ABD: Abdomen soft, nontender and non-distended. No guarding or rebound tenderness to palpate. Bowel sounds are normal in all 4 quadrants. There is no palpable masses or organomegaly. EXT: Full painless ROM in upper extremities with no loss of sensation, strength, effusion or edema. Lower extremities with significantly decreased sensation in dorsal aspect from ankle to toes, better in bilateral sole. Able to plantar flex bilateral foot but unable to dorsiflex. Unable to assess proprioception on bilateral toes. SKIN: Warm, dry, normal color for patient. No erythema, lesions or rash. BACK: Nontender without deformity or crepitance. No flank tenderness. NEUROLOGICAL: Alert and oriented to place, time and person. No facial droops, dysphasia. CN II-XII intact. Strength and sensation symmetric and intact in upper extremities. Sensation in bilateral ankle to distal foot difficulty with differentiating sharp or dull under dorsal aspect of the foot. Patient able to differentiate dull from sharp sensation on bilateral sole of foot. Cerebellar testing normal. PSYCHIATRIC: Good judgement and reason, without hallucinations, abnormal affect or abnormal behaviors during the examination. Patient is not suicidal. Initial Vital Signs Initial Vital Signs: Vital Signs Temperature 98.5 F 07/21/19 13:45 Pulse Rate 83 07/21/19 13:45 Respiratory Rate 15 07/21/19 13:45 Blood Pressure 93/60 07/21/19 13:45 Pulse Oximetry 97 07/21/19 13:45 <Solange Hernandez, DO - Last Filed: 07/22/19 18:53> Narrative Exam Narrative: GEN: well nourished, well appearing male, alert and oriented x 3, patient appears to be in mildly distress. Patient does appear moderately intoxicated. HEENT: Atraumatic, pupils are equal round reactive to light, extraocular movements are intact, nares are clear, TMs are clear with no fluid, there is no conjunctival pallor. Throat is clear without any exudates, erythema, tonsillar enlargement or uvular deviation, no facial droop. HEART: Regular rate and rhythm without murmur, clicks, rubs. Pulses are equal in upper and lower extremities LUNGS:Lungs clear to auscultation, no wheezes, rales, crackles, chest moves symmetrically ABD:bowel sounds normal, soft, non-tender, no guarding, rebound, rigidity, no masses noted, no hepatosplenomegaly :No CVA tenderness BACK exam: No vertebral tenderness. MSCL: Non-tender, no muscle atrophy, muscles strength 5/5 upper and lower extremities, full range of motion except for patient is not able to dorsiflex, he is able to plantar flex. Patient does appear to track his toes when attempting to ambulate. NEURO:CN 2-12 intact, sensation normal, reflexes 2/4 upper and lower extremities. finger nose finger test normal. SKIN: no rash, no ecchymosis. Initial Vital Signs Initial Vital Signs: Vital Signs Temperature 98.5 F 07/21/19 13:45 Pulse Rate 83 07/21/19 13:45 Respiratory Rate 15 07/21/19 13:45 Blood Pressure 93/60 07/21/19 13:45 Pulse Oximetry 97 07/21/19 13:45 Scores <Juanpablo ASH ParadaP - Last Filed: 07/21/19 20:05> GCS Nelson coma scale eye opening: Spontaneous Nelson coma scale verbal response: Orientated Jhonatan coma scale motor response: Obey commands Nelson coma scale total score: 15 Nexus Score for C-Spine Focal Neurologic deficit present: No Midline spinal tenderness present: No Altered level of conciousness present: No Intoxication present: Yes Distracting Injury Present: No Nexus Criteria for C-spine: 1 Course <Juanpablo ASH ParadaP - Last Filed: 07/21/19 20:05> Orders Ordered: Acetaminophen (Tylenol) 650 mg PO Q6HR PRN PRN Reason: Fever/Mild Pain (1-3) Al Hydrox/Mg Hydrox/Simethicone (Maalox Plus) 30 ml PO Q6HR PRN PRN Reason: Dyspepsia Aspirin (Aspirin Ec) 81 mg PO DAILY [facility] Atorvastatin Calcium (Lipitor) 80 mg PO BEDTIME [facility] Calcium Carbonate (Tums) 1,000 mg PO Q4HR PRN PRN Reason: Dyspepsia Dextrose (D50w) 25 gm IV PRN PRN PRN Reason: Hypoglycemia Folic Acid (Folic Acid) 0.4 mg PO DAILY [facility] Hydrochlorothiazide (Hydrochlorothiazide) 25 mg PO DAILY [facility] Insulin Aspart (Novolog Flexpen) 0 unit SUBCUT [facility]; Protocol Last Admin: 07/22/19 18:23 Dose: 2 unit Documented by: SCARLET Cosigned by: ELLIOT Admin: 07/22/19 12:09 Dose: 2 unit Documented by: YVES Cosigned by: CPEJANES Admin: 07/22/19 08:51 Dose: 2 unit Documented by: YVES Cosigned by: NICKY Admin: 07/21/19 21:38 Dose: 4 unit Documented by: PRADEEP Cosigned by: JACKELYN Insulin Glargine (Lantus Solostar (Pen)) 30 unit SUBCUT 0800 [facility] Lisinopril (Zestril) 20 mg PO DAILY [facility] Last Admin: 07/22/19 08:55 Dose: 20 mg Documented by: YVES Metoclopramide HCl (Reglan) 5 mg PO [facility] Last Admin: 07/22/19 18:23 Dose: 5 mg Documented by: SCARLET Multivitamins (Tab-A-Howard) 1 tab PO DAILY [facility] Naloxone HCl (Narcan) 0.2 mg IV Q2MIN PRN PRN Reason: Opiate Reversal Nicotine (Nicoderm) 21 mg TOP DAILY [facility] Last Admin: 07/22/19 08:56 Dose: 21 mg Documented by: Admin: 07/21/19 22:32 Dose: 21 mg Documented by: JACKELNY Ondansetron HCl (Zofran) 4 mg IV Q8HR PRN PRN Reason: Nausea And Vomiting Sodium Chloride (Normal Saline 0.9% Flush) 10 ml IV PRN PRN PRN Reason: Flush Sodium Chloride (Normal Saline 0.9% Flush) 10 ml IV BID [facility] Tamsulosin HCl (Flomax) 0.4 mg PO BEDTIME [facility] Thiamine HCl (Vitamin B-1) 100 mg PO DAILY [facility] Last Admin: 07/22/19 08:56 Dose: 100 mg Documented by: YVES Discontinued Medications Enoxaparin Sodium (Lovenox) 40 mg SUBCUT DAILY [facility] Last Admin: 07/22/19 08:56 Dose: 40 mg Documented by: YVES Sodium Chloride (Normal Saline 0.9%) 1,000 mls @ 1,000 mls/hr IV BOLUS PRN PRN Reason: Fluid replacement Stop: 07/21/19 20:51 Last Infusion: 07/21/19 15:27 Dose: 0 mls/hr Documented by: Admin: 07/21/19 14:21 Dose: 1,000 mls/hr Documented by: WALTER Magnesium Sulfate 2 gm/ Folic Acid 1 mg/ Thiamine HCl 100 mg / Multivitamins 10 ml/ Sodium Chloride 1,015.2 mls @ 999 mls/hr IV NOW ONE Stop: 07/21/19 15:08 Last Infusion: 07/21/19 16:45 Dose: 0 mls/hr Documented by: Infusion: 07/21/19 15:27 Dose: 1,000 mls/hr Documented by: Admin: 07/21/19 14:46 Dose: 125 mls/hr Documented by: WALTER Sodium Chloride (Normal Saline 0.9%) 1,000 mls @ 150 mls/hr IV CONT [facility] Last Infusion: 07/22/19 04:00 Dose: 0 mls/hr Documented by: Infusion: 07/21/19 23:40 Dose: 100 mls/hr Documented by: Infusion: 07/21/19 20:38 Dose: 150 mls/hr Documented by: Admin: 07/21/19 17:37 Dose: 150 mls/hr Documented by: SINDHUSENAlysia Sodium Chloride (Normal Saline 0.9%) 1,000 mls @ 100 mls/hr IV CONT [facility] Last Admin: 07/22/19 04:00 Dose: 100 mls/hr Documented by: Admin: 07/22/19 00:11 Dose: Not Given Documented by: MANSI Insulin Aspart (Novolog) 5 unit SUBCUT NOW ONE Stop: 07/22/19 00:05 Last Admin: 07/22/19 00:27 Dose: 5 unit Documented by: MANSI Cosigned by: FEDE Insulin Glargine (Lantus Solostar (Pen)) 22 unit SUBCUT 0800 [facility] Last Admin: 07/22/19 08:52 Dose: 22 unit Documented by: YVES Cosigned by: CMCFARL Tamsulosin HCl (Flomax) 0.4 mg PO DAILY [facility] Last Admin: 07/21/19 22:32 Dose: 0.4 mg Documented by: JACKELYN Reevaluation(s) Reevaluation #1: The patient was able to stand to void in urinal but wasn't able to take steps/ambulate. Patient able to dorsiflex bilateral foot but unable to plantar flex and continue to have decreased sensation in the bilateral foot. Dr. Franco at [facility] neurologist was consulted with physical exam, CT and lumbar Xray finding. Was advised CT of lumbar, add Vitamin B12 and B1 level to add to the lab. Time: 16:18 Reevaluation #2: Patient continues to have decreased sensation on dorsal aspect of foot, able to plantar flex but unable to dorsiflex. Time: 18:30 Consultations Consultation #1: Dr. Franco at [facility] neurology consult. Time: 16:10 Consultation #2: Dr. Shama Doll with Lumbar MRI findings. Was informed that the patient does not need emergent evaluation tonight but will evaluate the patient tomorrow. Time: 19:09 Vital Signs Vital signs: Vital Signs - 8 hr 07/21/19 13:45 07/21/19 14:04 07/21/19 14:15 Temperature 98.5 F Pulse Rate 91 H 87 Pulse Rate [Bilateral Posterior Tibial] 91 H Respiratory Rate 20 22 Blood Pressure 93/60 Blood Pressure [Left Arm] 93/60 Blood Pressure [Right Arm] 69/41 L Pulse Oximetry 97 97 07/21/19 14:19 07/21/19 14:28 07/21/19 14:30 Temperature Pulse Rate 86 88 86 Pulse Rate [Bilateral Posterior Tibial] Respiratory Rate 13 12 17 Blood Pressure Blood Pressure [Left Arm] 69/41 L 69/43 L Blood Pressure [Right Arm] 70/40 L Pulse Oximetry 95 95 95 07/21/19 14:36 07/21/19 14:48 07/21/19 14:51 Temperature Pulse Rate 89 91 H 85 Pulse Rate [Bilateral Posterior Tibial] Respiratory Rate 15 22 26 H Blood Pressure Blood Pressure [Left Arm] 85/50 L Blood Pressure [Right Arm] 74/42 L 73/43 L Pulse Oximetry 95 96 07/21/19 15:07 07/21/19 15:29 07/21/19 15:30 Temperature Pulse Rate 88 86 85 Pulse Rate [Bilateral Posterior Tibial] Respiratory Rate 22 12 20 Blood Pressure Blood Pressure [Left Arm] 95/56 L 97/66 85/56 L Blood Pressure [Right Arm] Pulse Oximetry 95 98 07/21/19 15:45 07/21/19 15:53 07/21/19 16:13 Temperature Pulse Rate 88 80 80 Pulse Rate [Bilateral Posterior Tibial] Respiratory Rate 15 22 13 Blood Pressure Blood Pressure [Left Arm] 96/64 96/74 100/62 Blood Pressure [Right Arm] Pulse Oximetry 99 96 100 07/21/19 16:15 07/21/19 17:40 07/21/19 18:30 Temperature Pulse Rate 83 94 H 92 H Pulse Rate [Bilateral Posterior Tibial] Respiratory Rate 18 19 17 Blood Pressure Blood Pressure [Left Arm] 100/62 Blood Pressure [Right Arm] 95/60 112/76 Pulse Oximetry 99 96 99 <Solange Hernandez, - Last Filed: 07/22/19 18:53> Orders Ordered: Acetaminophen (Tylenol) 650 mg PO Q6HR PRN PRN Reason: Fever/Mild Pain (1-3) Al Hydrox/Mg Hydrox/Simethicone (Maalox Plus) 30 ml PO Q6HR PRN PRN Reason: Dyspepsia Aspirin (Aspirin Ec) 81 mg PO DAILY [facility] Atorvastatin Calcium (Lipitor) 80 mg PO BEDTIME [facility] Calcium Carbonate (Tums) 1,000 mg PO Q4HR PRN PRN Reason: Dyspepsia Dextrose (D50w) 25 gm IV PRN PRN PRN Reason: Hypoglycemia Folic Acid (Folic Acid) 0.4 mg PO DAILY [facility] Hydrochlorothiazide (Hydrochlorothiazide) 25 mg PO DAILY [facility] Insulin Aspart (Novolog Flexpen) 0 unit SUBCUT ACHS [facility]; Protocol Last Admin: 07/22/19 18:23 Dose: 2 unit Documented by: SCARLET Cosigned by: ELLIOT Admin: 07/22/19 12:09 Dose: 2 unit Documented by: YVES Cosigned by: CPETRIC Admin: 07/22/19 08:51 Dose: 2 unit Documented by: YVES Cosigned by: CMCFARL Admin: 07/21/19 21:38 Dose: 4 unit Documented by: PRADEEP Cosigned by: JACKELYN Insulin Glargine (Lantus Solostar (Pen)) 30 unit SUBCUT 0800 [facility] Lisinopril (Zestril) 20 mg PO DAILY [facility] Last Admin: 07/22/19 08:55 Dose: 20 mg Documented by: YVES Metoclopramide HCl (Reglan) 5 mg PO ACHS [facility] Last Admin: 07/22/19 18:23 Dose: 5 mg Documented by: SCARLET Multivitamins (Tab-A-Howard) 1 tab PO DAILY [facility] Naloxone HCl (Narcan) 0.2 mg IV Q2MIN PRN PRN Reason: Opiate Reversal Nicotine (Nicoderm) 21 mg TOP DAILY [facility] Last Admin: 07/22/19 08:56 Dose: 21 mg Documented by: Admin: 07/21/19 22:32 Dose: 21 mg Documented by: JACKELYN Ondansetron HCl (Zofran) 4 mg IV Q8HR PRN PRN Reason: Nausea And Vomiting Sodium Chloride (Normal Saline 0.9% Flush) 10 ml IV PRN PRN PRN Reason: Flush Sodium Chloride (Normal Saline 0.9% Flush) 10 ml IV BID [facility] Tamsulosin HCl (Flomax) 0.4 mg PO BEDTIME [facility] Thiamine HCl (Vitamin B-1) 100 mg PO DAILY [facility] Last Admin: 07/22/19 08:56 Dose: 100 mg Documented by: YVES Discontinued Medications Enoxaparin Sodium (Lovenox) 40 mg SUBCUT DAILY [facility] Last Admin: 07/22/19 08:56 Dose: 40 mg Documented by: YVES Sodium Chloride (Normal Saline 0.9%) 1,000 mls @ 1,000 mls/hr IV BOLUS PRN PRN Reason: Fluid replacement Stop: 07/21/19 20:51 Last Infusion: 07/21/19 15:27 Dose: 0 mls/hr Documented by: Admin: 07/21/19 14:21 Dose: 1,000 mls/hr Documented by: MEISENB Magnesium Sulfate 2 gm/ Folic Acid 1 mg/ Thiamine HCl 100 mg / Multivitamins 10 ml/ Sodium Chloride 1,015.2 mls @ 999 mls/hr IV NOW ONE Stop: 07/21/19 15:08 Last Infusion: 07/21/19 16:45 Dose: 0 mls/hr Documented by: Infusion: 07/21/19 15:27 Dose: 1,000 mls/hr Documented by: Admin: 07/21/19 14:46 Dose: 125 mls/hr Documented by: WALTER Sodium Chloride (Normal Saline 0.9%) 1,000 mls @ 150 mls/hr IV CONT [facility] Last Infusion: 07/22/19 04:00 Dose: 0 mls/hr Documented by: Infusion: 07/21/19 23:40 Dose: 100 mls/hr Documented by: Infusion: 07/21/19 20:38 Dose: 150 mls/hr Documented by: Admin: 07/21/19 17:37 Dose: 150 mls/hr Documented by: WALTER Sodium Chloride (Normal Saline 0.9%) 1,000 mls @ 100 mls/hr IV CONT [facility] Last Admin: 07/22/19 04:00 Dose: 100 mls/hr Documented by: Admin: 07/22/19 00:11 Dose: Not Given Documented by: MANSI Insulin Aspart (Novolog) 5 unit SUBCUT NOW ONE Stop: 07/22/19 00:05 Last Admin: 07/22/19 00:27 Dose: 5 unit Documented by: MANSI Cosigned by: FEDE Insulin Glargine (Lantus Solostar (Pen)) 22 unit SUBCUT 0800 [facility] Last Admin: 07/22/19 08:52 Dose: 22 unit Documented by: YVES Cosigned by: CMCFARL Tamsulosin HCl (Flomax) 0.4 mg PO DAILY [facility] Last Admin: 07/21/19 22:32 Dose: 0.4 mg Documented by: JACKELYN Vital Signs Vital signs: Vital Signs - 8 hr 07/21/19 13:45 07/21/19 14:04 07/21/19 14:15 Temperature 98.5 F Pulse Rate 91 H 87 Pulse Rate [Bilateral Posterior Tibial] 91 H Respiratory Rate 20 22 Blood Pressure 93/60 Blood Pressure [Left Arm] 93/60 Blood Pressure [Right Arm] 69/41 L Pulse Oximetry 97 97 07/21/19 14:19 07/21/19 14:28 07/21/19 14:30 Temperature Pulse Rate 86 88 86 Pulse Rate [Bilateral Posterior Tibial] Respiratory Rate 13 12 17 Blood Pressure Blood Pressure [Left Arm] 69/41 L 69/43 L Blood Pressure [Right Arm] 70/40 L Pulse Oximetry 95 95 95 07/21/19 14:36 07/21/19 14:48 07/21/19 14:51 Temperature Pulse Rate 89 91 H 85 Pulse Rate [Bilateral Posterior Tibial] Respiratory Rate 15 22 26 H Blood Pressure Blood Pressure [Left Arm] 85/50 L Blood Pressure [Right Arm] 74/42 L 73/43 L Pulse Oximetry 95 96 07/21/19 15:07 07/21/19 15:29 07/21/19 15:30 Temperature Pulse Rate 88 86 85 Pulse Rate [Bilateral Posterior Tibial] Respiratory Rate 22 12 20 Blood Pressure Blood Pressure [Left Arm] 95/56 L 97/66 85/56 L Blood Pressure [Right Arm] Pulse Oximetry 95 98 07/21/19 15:45 07/21/19 15:53 07/21/19 16:13 Temperature Pulse Rate 88 80 80 Pulse Rate [Bilateral Posterior Tibial] Respiratory Rate 15 22 13 Blood Pressure Blood Pressure [Left Arm] 96/64 96/74 100/62 Blood Pressure [Right Arm] Pulse Oximetry 99 96 100 07/21/19 16:15 07/21/19 17:40 07/21/19 18:30 Temperature Pulse Rate 83 94 H 92 H Pulse Rate [Bilateral Posterior Tibial] Respiratory Rate 18 19 17 Blood Pressure Blood Pressure [Left Arm] 100/62 Blood Pressure [Right Arm] 95/60 112/76 Pulse Oximetry 99 96 99 MDM - Extremity (Nontraumatic) <Juanpablo Tal [facility] - Last Filed: 07/21/19 20:05> Differential Diagnosis Differential diagnosis: Likely other (stroke, ETOH intoxication, lumbar spine hematoma/abscess, Guillian-Salters' syndrome, peripheral neuropathy, JOSE, Wernicke-Kosakoff syndrome) Medical Records Attestation: I reviewed the patient's medical records. Lab Data Attestation: I reviewed the patient's lab results. Result diagrams: 07/22/19 05:13 07/22/19 05:13 Labs: Lab Results 07/21/19 07/21/19 07/21/19 Range/Units 14:13 14:13 14:13 WBC 9.2 (4.5-11.0) X10^3/uL RBC 4.21 L (4.5-5.9) X10^6/uL Hgb 14.0 (13.5-17.5) g/dL Hct 40.1 L (41-53) % MCV 95.1 (80-100) fL MCH 33.2 (26-34) PG MCHC 34.9 (30-36) % RDW 13.5 (11.6-14.8) % Plt Count 131 L (150-400) X10^3/uL Neut % (Auto) 41.2 L (50-75) % Lymph % (Auto) 48.5 H (25-40) % Ramsey % (Auto) 8.1 (3-14) % Eos % (Auto) 1.8 L (2-4) % Baso % (Auto) 0.4 (0-2) % Neut # (Auto) 3800 (1608-6691) /uL Lymph # (Auto) 4500 (3316-0548) /uL Ramsey # (Auto) 700 (0-900) /uL Eos # (Auto) 200 (0-450) /uL Baso # (Auto) 0 (0-100) /uL Sodium 131 L (137-145) mmol/L Potassium 3.9 (3.4-5.1) mmol/L Chloride 83 L (98-107) mmol/L Carbon Dioxide 25 (22-32) mmol/L BUN 39 H (9-20) mg/dL Creatinine 2.50 H (0.66-1.25) mg/dL Estimated GFR 28.1 L (>60) mL/min BUN/Creatinine Ratio 15.6 (6-22) Glucose 475 H (70-100) mg/dL Calcium 9.1 (8.4-10.2) mg/dL Phosphorus (2.5-4.5) mg/dL Magnesium (1.6-2.3) mg/dL Total Bilirubin 0.4 (0.2-1.3) mg/dL AST 30 (17-59) IU/L ALT 12 (<50) IU/L Alkaline Phosphatase 121 (38-126) U/L Total Protein 7.2 (6.3-8.2) g/dL Albumin 4.3 (3.5-5.0) g/dL Globulin 2.9 (1.7-4.1) g/dL Albumin/Globulin Ratio 1.5 (1.0-2.8) Lipase 218 (23-300) U/L Vitamin B12 (239-931) pg/mL Urine Color Urine Appearance Urine pH (4.5-8.0) Ur Specific [address] (1.000-1.035) Urine Protein (Negative) Urine Glucose (UA) (Negative) g/dL Urine Ketones (NEGATIVE) Urine Occult Blood (Negative) Urine Nitrate (Negative) Urine Bilirubin (NEGATIVE) Urine Urobilinogen (0.2) E.U./dL Ur Leukocyte Esterase (NEGATIVE) Urine RBC (0-5/HPF) Urine WBC (0-5/HPF) Urine Bacteria (None) Ur Culture Indicated? U Opiates 300ng/mL cut (Negative) Ur Oxycodone Screen (Negative) Urine Methadone Screen (Negative) Ur Barbiturates Screen (Negative) U Tricyclic Antidepress (Negative) Ur Phencyclidine Scrn (Negative) Ur Amphetamines Screen (Negative) U Methamphetamines Scrn (Negative) Ur MDMA Scrn (Ecstasy) (Negative) U Benzodiazepines Scrn (Negative) Urine Cocaine Screen (Negative) U Marijuana (THC) Screen (Negative) Ethyl Alcohol 322 H ( - 10) mg/dL 07/21/19 07/21/19 07/21/19 Range/Units 14:27 14:27 16:03 WBC (4.5-11.0) X10^3/uL RBC (4.5-5.9) X10^6/uL Hgb (13.5-17.5) g/dL Hct (41-53) % MCV (80-100) fL MCH (26-34) PG MCHC (30-36) % RDW (11.6-14.8) % Plt Count (150-400) X10^3/uL Neut % (Auto) (50-75) % Lymph % (Auto) (25-40) % Ramsey % (Auto) (3-14) % Eos % (Auto) (2-4) % Baso % (Auto) (0-2) % Neut # (Auto) (5204-9588) /uL Lymph # (Auto) (0743-8477) /uL Ramsey # (Auto) (0-900) /uL Eos # (Auto) (0-450) /uL Baso # (Auto) (0-100) /uL Sodium (137-145) mmol/L Potassium (3.4-5.1) mmol/L Chloride (98-107) mmol/L Carbon Dioxide (22-32) mmol/L BUN (9-20) mg/dL Creatinine (0.66-1.25) mg/dL Estimated GFR (>60) mL/min BUN/Creatinine Ratio (6-22) Glucose (70-100) mg/dL Calcium (8.4-10.2) mg/dL Phosphorus 5.1 H (2.5-4.5) mg/dL Magnesium 2.4 H (1.6-2.3) mg/dL Total Bilirubin (0.2-1.3) mg/dL AST (17-59) IU/L ALT (<50) IU/L Alkaline Phosphatase (38-126) U/L Total Protein (6.3-8.2) g/dL Albumin (3.5-5.0) g/dL Globulin (1.7-4.1) g/dL Albumin/Globulin Ratio (1.0-2.8) Lipase (23-300) U/L Vitamin B12 803 (239-931) pg/mL Urine Color Yellow Urine Appearance Clear Urine pH 5.0 (4.5-8.0) Ur Specific [address] <=1.005 (1.000-1.035) Urine Protein Trace H (Negative) Urine Glucose (UA) 2+ H (Negative) g/dL Urine Ketones Negative (NEGATIVE) Urine Occult Blood Trace-lysed (Negative) Urine Nitrate Negative (Negative) Urine Bilirubin Negative (NEGATIVE) Urine Urobilinogen 0.2 (0.2) E.U./dL Ur Leukocyte Esterase Negative (NEGATIVE) Urine RBC None seen (0-5/HPF) Urine WBC None seen (0-5/HPF) Urine Bacteria None seen (None) Ur Culture Indicated? Cult not indicated U Opiates 300ng/mL cut (Negative) Ur Oxycodone Screen (Negative) Urine Methadone Screen (Negative) Ur Barbiturates Screen (Negative) U Tricyclic Antidepress (Negative) Ur Phencyclidine Scrn (Negative) Ur Amphetamines Screen (Negative) U Methamphetamines Scrn (Negative) Ur MDMA Scrn (Ecstasy) (Negative) U Benzodiazepines Scrn (Negative) Urine Cocaine Screen (Negative) U Marijuana (THC) Screen (Negative) Ethyl Alcohol ( - 10) mg/dL 07/21/19 Range/Units 16:03 WBC (4.5-11.0) X10^3/uL RBC (4.5-5.9) X10^6/uL Hgb (13.5-17.5) g/dL Hct (41-53) % MCV (80-100) fL MCH (26-34) PG MCHC (30-36) % RDW (11.6-14.8) % Plt Count (150-400) X10^3/uL Neut % (Auto) (50-75) % Lymph % (Auto) (25-40) % Ramsey % (Auto) (3-14) % Eos % (Auto) (2-4) % Baso % (Auto) (0-2) % Neut # (Auto) (1061-7319) /uL Lymph # (Auto) (9676-6866) /uL Ramsey # (Auto) (0-900) /uL Eos # (Auto) (0-450) /uL Baso # (Auto) (0-100) /uL Sodium (137-145) mmol/L Potassium (3.4-5.1) mmol/L Chloride (98-107) mmol/L Carbon Dioxide (22-32) mmol/L BUN (9-20) mg/dL Creatinine (0.66-1.25) mg/dL Estimated GFR (>60) mL/min BUN/Creatinine Ratio (6-22) Glucose (70-100) mg/dL Calcium (8.4-10.2) mg/dL Phosphorus (2.5-4.5) mg/dL Magnesium (1.6-2.3) mg/dL Total Bilirubin (0.2-1.3) mg/dL AST (17-59) IU/L ALT (<50) IU/L Alkaline Phosphatase (38-126) U/L Total Protein (6.3-8.2) g/dL Albumin (3.5-5.0) g/dL Globulin (1.7-4.1) g/dL Albumin/Globulin Ratio (1.0-2.8) Lipase (23-300) U/L Vitamin B12 (239-931) pg/mL Urine Color Urine Appearance Urine pH (4.5-8.0) Ur Specific [address] (1.000-1.035) Urine Protein (Negative) Urine Glucose (UA) (Negative) g/dL Urine Ketones (NEGATIVE) Urine Occult Blood (Negative) Urine Nitrate (Negative) Urine Bilirubin (NEGATIVE) Urine Urobilinogen (0.2) E.U./dL Ur Leukocyte Esterase (NEGATIVE) Urine RBC (0-5/HPF) Urine WBC (0-5/HPF) Urine Bacteria (None) Ur Culture Indicated? U Opiates 300ng/mL cut Negative (Negative) Ur Oxycodone Screen Negative (Negative) Urine Methadone Screen Negative (Negative) Ur Barbiturates Screen Negative (Negative) U Tricyclic Antidepress Negative (Negative) Ur Phencyclidine Scrn Negative (Negative) Ur Amphetamines Screen Negative (Negative) U Methamphetamines Scrn Negative (Negative) Ur MDMA Scrn (Ecstasy) Negative (Negative) U Benzodiazepines Scrn Negative (Negative) Urine Cocaine Screen Negative (Negative) U Marijuana (THC) Screen Negative (Negative) Ethyl Alcohol ( - 10) mg/dL Point of Care Testing Glucose POC [address] scan - head: Radiologist's Impression: [address] [address] [address] Scan Report Signed Patient: Oh Clemente WMR#: [id number] : 1975Acct:[id number] Age/Sex: 43 / MDate of Service: 07/21/19 Loc: ED Accession Number: [id number] Procedure: CT head/brain wo con Ordering Provider: Juanpablo Parada PROCEDURE: CT HEAD/BRAIN WO CON INDICATIONS: localized bilateral foot weakness and sensation TECHNIQUE: Noncontrast 4.5 mm thick angled axial sections acquired from the foramen magnum to the vertex, with coronal and sagittal reformats. For radiation dose reduction, the following was used: automated exposure control, adjustment of mA and/or kV according to patient size. COMPARISON: None. FINDINGS: Image quality: Excellent. CSF spaces: Basal cisterns are patent. No extra-axial fluid collections. Ventricles are normal in size and shape. Brain: No midline shift. No intracranial masses or hemorrhage. Ortiz-white matter interface is normal. Skull and face: Calvarium and visualized facial bones are intact, without suspicious lesions. Sinuses: Visualized sinuses and mastoids are clear. IMPRESSION: No acute intracranial abnormality. Comment: Findings were discussed with Juanpablo Parada at the time of dictation. Dictated by: Real Elliott M.D. on 07/21/2019 at 15:23 Approved by: Real Elliott M.D. on 07/21/2019 at 15:26 XR- Lumbar: Radiologist's Impression: [address] [address] XRay Report Signed Patient: Oh Clemente WMR#: [id number] : 1975Acct:[id number] Age/Sex: 43 / MDate of Service: 07/21/19 Loc: ED Accession Number: [id number] Procedure: XR lumbar spine 2-3V Ordering Provider: Juanpablo Parada PROCEDURE: XR LUMBAR SPINE 2-3V INDICATIONS: sudden onset of bilateral foot weakness and decreased sensation TECHNIQUE: 3 views of the lumbar spine were acquired. COMPARISON: None. FINDINGS: Bones: 5 [id number] vertebrae are present. There is normal bony alignment. No vertebral body compression fractures. No suspicious bony lesions. Soft tissues: Overlying bowel gas pattern is normal. No suspicious soft tissue calcifications. Aortic vascular calcification. IMPRESSION: No acute osseous abnormality. Dictated by: Real Elliott M.D. on 07/21/2019 at 15:26 Approved by: Real Elliott M.D. on 07/21/2019 at 15:28 CT-Lumbar w/o contrast: Radiologist's Impression: [address] [address] [address] Scan Report Signed Patient: Oh Clemente WMR#: [id number] : 1975Acct:[id number] Age/Sex: 43 / MDate of Service: 07/21/19 Loc: ED Accession Number: [id number] Procedure: CT lumbar spine wo con Ordering Provider: Juanpablo Parada PROCEDURE: CT LUMBAR SPINE WO CON INDICATIONS: bilateral foot weakness and numbness TECHNIQUE: Noncontrast 3 mm thick sections acquired from the T12 level to the sacrum. Sagittal and coronal reformats were constructed. For radiation dose reduction, the following was used: automated exposure control. COMPARISON: [facility], CR, XR LUMBAR SPINE 2-3V, 07/21/2019, 14:52. FINDINGS: Image quality: Excellent. Bones: There is normal bony alignment. No acute vertebral body compression fractures. No suspicious lytic or blastic bony lesions. Central spinal caliber is of normal overall caliber. No pars defects. T12-L1: Normal. L1-L2: Normal. L2-L3: The disc height is well-preserved. Moderate disc bulge is seen, with a central disc protrusion. There is moderate bilateral neural foraminal narrowing seen, left worse than right. Moderate central canal narrowing is seen. L3-L4: The disc height is well-preserved. Moderate disc bulge is seen, with a central disc protrusion. There is calcification seen along the posterior aspect of the annulus fibrosis, as on series 5 image 37. There is mild to moderate bilateral neural foraminal narrowing seen. Moderate central canal narrowing is seen. L4-L5: The disc height is relatively well-preserved. Moderate disc bulge is seen, with a central disc protrusion present. There is calcification seen along the posterior aspect of the annulus fibrosis, as on series 5 image 37. There is moderate bilateral neural foraminal narrowing seen. Moderate central canal narrowing is seen. L5-S1: Mild to moderate loss of disc height is seen. Endplate irregularity and sclerosis can be seen. Posteriorly projected endplate osteophytes are seen. Moderate disc bulge is seen, with a central disc protrusion present. Zrbd-cs-chupsiga facet hypertrophy is seen. There is at least moderate bilateral neural foraminal narrowing seen. Moderate central canal narrowing is seen. Soft tissues: No retroperitoneal masses or hematomas. Visualized aorta is normal in caliber. Mild bilateral hydronephrosis and hydroureter can be seen (left worse than right), without an obstructing process seen. IMPRESSION: No definite, acute abnormality is seen. Lower lumbar spine degenerative changes are seen, which are overall most prominent at the L5-S1 level. Incidental note is made of mild bilateral hydronephrosis and hydroureter, without an obstructing process seen. Dictated by: Murphy Joseph M.D. on 07/21/2019 at 15:53 Approved by: Murphy Joseph M.D. on 07/21/2019 at 15:58 MRI-Lumbar w/o contrast: Radiologist's Impression: [address] [address] Magnetic Resonance Report Signed Patient: Oh Clemente WMR#: [id number] : 1975Acct:[id number] Age/Sex: 43 / MDate of Service: 07/21/19 Loc: ED Accession Number: [id number] Procedure: MR lumbar spine wo con Ordering Provider: Juanpablo Parada PROCEDURE: MR LUMBAR SPINE WO CON INDICATIONS: bilateral foot weakness and decreased sensation TECHNIQUE: Noncontrast sagittal T1 spin echo and T2 fast echo, sagittal STIR, axial T1 and T2 fast spin echo through the lumbar spine. In cases with scoliosis, additional coronal T2 fast spin echo may be performed. COMPARISON: [facility], CT, CT LUMBAR SPINE WO CON, 07/21/2019, 16:15. [facility], CR, XR LUMBAR SPINE 2-3V, 07/21/2019, 14:52. FINDINGS: Image quality: This examination is limited by involuntary motion artifact. Images are repeated, with some improvement. Alignment and Curvature: There is normal bony alignment. Bone Marrow: Marrow is of normal overall signal. No acute vertebral body compression fractures. Spinal Cord: Conus medullaris terminates at the L1 level. Visualized cord demonstrates normal signal and size. Paraspinous Soft Tissues: No paravertebral masses. T11-T12: Moderate loss of disc height is seen. There is a remote Schmorl's node seen involving the superior endplate of T12 anteriorly. No significant neural foraminal or central canal narrowing can be seen. T12-L1: Normal appearance. L1-L2: Normal appearance. L2-L3: The disc height is well-preserved. Loss of disc signal is seen at this level. Mild to moderate disc bulge is seen, with a mild central disc protrusion. There is moderate bilateral neural foraminal narrowing seen, left worse than right. Psmz-xg-ggzwkiei central canal narrowing is seen. L3-L4: The disc height is well-preserved. Loss of disc signal is seen at this level. Moderate disc bulge is seen, with a mild central disc protrusion. Ulye-iv-arjuyfzp bilateral neural foraminal narrowing is seen. Moderate central canal narrowing is seen. L4-L5: There is minimal loss of disc height seen. Loss of disc signal is seen. Moderate disc bulge is seen, with a mild central disc extrusion, with slight inferior migration of the disc material. Mild facet joint hypertrophy is seen. There is at least moderate bilateral neural foraminal narrowing seen, right worse than left. There is a mild degree of compression seen upon the exiting right L4 nerve root. Moderate central canal narrowing is seen. L5-S1: Mild to moderate loss of disc height is seen. Loss of disc signal is seen. Moderate disc bulge is seen, with a central disc extrusion, as on series 5 images 30 and 31 and on series 2 image 10. Mild facet joint hypertrophy is seen. There is at least moderate bilateral neural foraminal narrowing seen. There is a minimal degree of compression seen upon the exiting nerve roots. Moderate central canal narrowing is seen. IMPRESSION: Multiple levels of lower lumbar spine degenerative change are seen, which are more prominent than would be expected patient of this age. Mild central disc extrusions are seen at L4-L5 and L5-S1. Mild compression can be seen upon the exiting right L4 nerve root and upon both exiting L5 nerve roots. Dictated by: Murphy Joseph M.D. on 07/21/2019 at 17:01 Approved by: Murphy Joseph M.D. on 07/21/2019 at 17:06 ECG Data Attestation EKG: I personally reviewed and interpreted this ECG as follows: Prior ECG tracings: not available for review Interpretation: Sinus with sinus arrhythmia rate at 86. Normal Spencer. No ST elevation or depression. NM int 166, normal QRS duration, QTc 446 MDM Narrative Medical decision making narrative: This is a 43-year-old male who presents to ED with his friend with chief complaint of sudden onset of bilateral decreased foot sensation and weakness since woke up this morning. Patient does have history of bilateral diabetes neuropathy/paresthesia but it feels different. Patient usually walks fine without difficulty with burning discomfort. Patient states his bilateral foot has been numb and had difficult time walking on it and act ually fell on his face on a cushioned couch. BeFAST exam was negative. Patient is able to elevated bilateral legs without drift for 5 seconds. Patient was able to plantar flex bilateral foot but unable to dorsiflex. Patient had difficult time distinguishing dull versus sharp on dorsal aspect of bilateral foot her physical exam. Difficulty assessing dorsal pedal pulses in bilateral foot with Doppler but bilateral foot felt warm with brisk cap refill with intact posterior tibia pulses. Upon arrival, noticed hypotension as low as SBP in 60's with DBP in 40's without chest pain, breathing difficulty, dizziness and conversing appropriately. Patient admitted drinking 4 oz of alcohol this morning and had parted at home last night. Patient's ETOH today was 322. Patient did not have any abdominal pain with palpation without distension. Glucose today was 475 and reports had used 22 units of Lantus this morning and taken his blood pressure medication as instructed. Patient reports his blood sugar has been running high and his normal is mid 300's. Patient was hydrated with normal saline 1 L IV fluid and 1 L of banana with mildly improved blood pressure and systolic 90s. Vitamin B12 803 with pending vitamin B1. Patient was able to void after IV hydration and UA test does not indicate infection. UDS was negative. Kidney function today was significantly decreased from 8 months ago. GFR of 28.1 with creatinine of 2.5 and BUN of 39. Patient reports has been hydrating and eating well without difficulty with voiding. No leukocytosis was noted and was afebrile. Head CT was negative. Lumbar spine x-ray result without acute findings. Lumbar CT without contrast showed degenerative changes in L5 through S1 with hydronephrosis and hydroureter without obstruction. Lumbar MRI was obtained and it indicated multilevel lower lumbar spine degenerative changes with mild central disc extrusion in L4 through S1. Mild compression in right-sided L4 and both exiting L5 nerve roots. Patient was assessed several times while in he is in ED with no changes in numbness to bilateral dorsal foot and weakness. He attempted to ambulate but with difficulty and with much effort from wheelchair to bed and bed to wheelchair. Patient voided while in ED in the bathroom and using urinal without difficulty. Dr. Shama Doll has been consulted with patient's finding and was informed that no emergent neurosurgeon evaluation is required tonight but patient will be evaluated tomorrow. [facility] Dr. Franco was consulted as well. Was informed to consider Guillian-Salters' syndrome if his weakness progresses to upper limbs next couple of days. Findings were discussed with and piece cut hospitalist and he kindly accepted patient's care. <Solange Cristina Hernandez, DO - Last Filed: 07/22/19 18:53> Lab Data Labs: Lab Results 07/21/19 07/21/19 07/21/19 Range/Units 14:13 14:13 14:13 WBC 9.2 (4.5-11.0) X10^3/uL RBC 4.21 L (4.5-5.9) X10^6/uL Hgb 14.0 (13.5-17.5) g/dL Hct 40.1 L (41-53) % MCV 95.1 (80-100) fL MCH 33.2 (26-34) PG MCHC 34.9 (30-36) % RDW 13.5 (11.6-14.8) % Plt Count 131 L (150-400) X10^3/uL Neut % (Auto) 41.2 L (50-75) % Lymph % (Auto) 48.5 H (25-40) % Ramsey % (Auto) 8.1 (3-14) % Eos % (Auto) 1.8 L (2-4) % Baso % (Auto) 0.4 (0-2) % Neut # (Auto) 3800 (2651-5141) /uL Lymph # (Auto) 4500 (7610-9634) /uL Ramsey # (Auto) 700 (0-900) /uL Eos # (Auto) 200 (0-450) /uL Baso # (Auto) 0 (0-100) /uL Sodium 131 L (137-145) mmol/L Potassium 3.9 (3.4-5.1) mmol/L Chloride 83 L (98-107) mmol/L Carbon Dioxide 25 (22-32) mmol/L BUN 39 H (9-20) mg/dL Creatinine 2.50 H (0.66-1.25) mg/dL Estimated GFR 28.1 L (>60) mL/min BUN/Creatinine Ratio 15.6 (6-22) Glucose 475 H (70-100) mg/dL Calcium 9.1 (8.4-10.2) mg/dL Phosphorus (2.5-4.5) mg/dL Magnesium (1.6-2.3) mg/dL Total Bilirubin 0.4 (0.2-1.3) mg/dL AST 30 (17-59) IU/L ALT 12 (<50) IU/L Alkaline Phosphatase 121 (38-126) U/L Total Protein 7.2 (6.3-8.2) g/dL Albumin 4.3 (3.5-5.0) g/dL Globulin 2.9 (1.7-4.1) g/dL Albumin/Globulin Ratio 1.5 (1.0-2.8) Lipase 218 (23-300) U/L Vitamin B12 (239-931) pg/mL Urine Color Urine Appearance Urine pH (4.5-8.0) Ur Specific [address] (1.000-1.035) Urine Protein (Negative) Urine Glucose (UA) (Negative) g/dL Urine Ketones (NEGATIVE) Urine Occult Blood (Negative) Urine Nitrate (Negative) Urine Bilirubin (NEGATIVE) Urine Urobilinogen (0.2) E.U./dL Ur Leukocyte Esterase (NEGATIVE) Urine RBC (0-5/HPF) Urine WBC (0-5/HPF) Urine Bacteria (None) Ur Culture Indicated? U Opiates 300ng/mL cut (Negative) Ur Oxycodone Screen (Negative) Urine Methadone Screen (Negative) Ur Barbiturates Screen (Negative) U Tricyclic Antidepress (Negative) Ur Phencyclidine Scrn (Negative) Ur Amphetamines Screen (Negative) U Methamphetamines Scrn (Negative) Ur MDMA Scrn (Ecstasy) (Negative) U Benzodiazepines Scrn (Negative) Urine Cocaine Screen (Negative) U Marijuana (THC) Screen (Negative) Ethyl Alcohol 322 H ( - 10) mg/dL 07/21/19 07/21/19 07/21/19 Range/Units 14:27 14:27 16:03 WBC (4.5-11.0) X10^3/uL RBC (4.5-5.9) X10^6/uL Hgb (13.5-17.5) g/dL Hct (41-53) % MCV (80-100) fL MCH (26-34) PG MCHC (30-36) % RDW (11.6-14.8) % Plt Count (150-400) X10^3/uL Neut % (Auto) (50-75) % Lymph % (Auto) (25-40) % Ramsey % (Auto) (3-14) % Eos % (Auto) (2-4) % Baso % (Auto) (0-2) % Neut # (Auto) (6369-9383) /uL Lymph # (Auto) (0127-7716) /uL Ramsey # (Auto) (0-900) /uL Eos # (Auto) (0-450) /uL Baso # (Auto) (0-100) /uL Sodium (137-145) mmol/L Potassium (3.4-5.1) mmol/L Chloride (98-107) mmol/L Carbon Dioxide (22-32) mmol/L BUN (9-20) mg/dL Creatinine (0.66-1.25) mg/dL Estimated GFR (>60) mL/min BUN/Creatinine Ratio (6-22) Glucose (70-100) mg/dL Calcium (8.4-10.2) mg/dL Phosphorus 5.1 H (2.5-4.5) mg/dL Magnesium 2.4 H (1.6-2.3) mg/dL Total Bilirubin (0.2-1.3) mg/dL AST (17-59) IU/L ALT (<50) IU/L Alkaline Phosphatase (38-126) U/L Total Protein (6.3-8.2) g/dL Albumin (3.5-5.0) g/dL Globulin (1.7-4.1) g/dL Albumin/Globulin Ratio (1.0-2.8) Lipase (23-300) U/L Vitamin B12 803 (239-931) pg/mL Urine Color Yellow Urine Appearance Clear Urine pH 5.0 (4.5-8.0) Ur Specific [address] <=1.005 (1.000-1.035) Urine Protein Trace H (Negative) Urine Glucose (UA) 2+ H (Negative) g/dL Urine Ketones Negative (NEGATIVE) Urine Occult Blood Trace-lysed (Negative) Urine Nitrate Negative (Negative) Urine Bilirubin Negative (NEGATIVE) Urine Urobilinogen 0.2 (0.2) E.U./dL Ur Leukocyte Esterase Negative (NEGATIVE) Urine RBC None seen (0-5/HPF) Urine WBC None seen (0-5/HPF) Urine Bacteria None seen (None) Ur Culture Indicated? Cult not indicated U Opiates 300ng/mL cut (Negative) Ur Oxycodone Screen (Negative) Urine Methadone Screen (Negative) Ur Barbiturates Screen (Negative) U Tricyclic Antidepress (Negative) Ur Phencyclidine Scrn (Negative) Ur Amphetamines Screen (Negative) U Methamphetamines Scrn (Negative) Ur MDMA Scrn (Ecstasy) (Negative) U Benzodiazepines Scrn (Negative) Urine Cocaine Screen (Negative) U Marijuana (THC) Screen (Negative) Ethyl Alcohol ( - 10) mg/dL 07/21/19 Range/Units 16:03 WBC (4.5-11.0) X10^3/uL RBC (4.5-5.9) X10^6/uL Hgb (13.5-17.5) g/dL Hct (41-53) % MCV (80-100) fL MCH (26-34) PG MCHC (30-36) % RDW (11.6-14.8) % Plt Count (150-400) X10^3/uL Neut % (Auto) (50-75) % Lymph % (Auto) (25-40) % Ramsey % (Auto) (3-14) % Eos % (Auto) (2-4) % Baso % (Auto) (0-2) % Neut # (Auto) (7662-2683) /uL Lymph # (Auto) (0138-7510) /uL Ramsey # (Auto) (0-900) /uL Eos # (Auto) (0-450) /uL Baso # (Auto) (0-100) /uL Sodium (137-145) mmol/L Potassium (3.4-5.1) mmol/L Chloride (98-107) mmol/L Carbon Dioxide (22-32) mmol/L BUN (9-20) mg/dL Creatinine (0.66-1.25) mg/dL Estimated GFR (>60) mL/min BUN/Creatinine Ratio (6-22) Glucose (70-100) mg/dL Calcium (8.4-10.2) mg/dL Phosphorus (2.5-4.5) mg/dL Magnesium (1.6-2.3) mg/dL Total Bilirubin (0.2-1.3) mg/dL AST (17-59) IU/L ALT (<50) IU/L Alkaline Phosphatase (38-126) U/L Total Protein (6.3-8.2) g/dL Albumin (3.5-5.0) g/dL Globulin (1.7-4.1) g/dL Albumin/Globulin Ratio (1.0-2.8) Lipase (23-300) U/L Vitamin B12 (239-931) pg/mL Urine Color Urine Appearance Urine pH (4.5-8.0) Ur Specific [address] (1.000-1.035) Urine Protein (Negative) Urine Glucose (UA) (Negative) g/dL Urine Ketones (NEGATIVE) Urine Occult Blood (Negative) Urine Nitrate (Negative) Urine Bilirubin (NEGATIVE) Urine Urobilinogen (0.2) E.U./dL Ur Leukocyte Esterase (NEGATIVE) Urine RBC (0-5/HPF) Urine WBC (0-5/HPF) Urine Bacteria (None) Ur Culture Indicated? U Opiates 300ng/mL cut Negative (Negative) Ur Oxycodone Screen Negative (Negative) Urine Methadone Screen Negative (Negative) Ur Barbiturates Screen Negative (Negative) U Tricyclic Antidepress Negative (Negative) Ur Phencyclidine Scrn Negative (Negative) Ur Amphetamines Screen Negative (Negative) U Methamphetamines Scrn Negative (Negative) Ur MDMA Scrn (Ecstasy) Negative (Negative) U Benzodiazepines Scrn Negative (Negative) Urine Cocaine Screen Negative (Negative) U Marijuana (THC) Screen Negative (Negative) Ethyl Alcohol ( - 10) mg/dL Point of Care Testing Glucose POC 367 MDM Narrative Medical decision making narrative: Patient was also seen by myself. Initially patient was hypotensive upon arrival although mentating well. He does appear intoxicated ETOH ended up being in the 300 range. Patient does appear to have foot drop bilaterally the rest of his neuro exam is intact. Patient's blood pressure responded to fluids, he was given a banana bag, a wide differential was included including unlikely but possible stroke or neurologic insult, radiculopathy secondary to back issues or mass, infection, possibly Wernicke's or alcohol-related cause such as thiamine deficiency, patient does have a history of neuropathy although would be unlikely for diabetic neuropathy to caus e sudden onset footdrop. Patient had imaging including MRI, patient had very mild impingement bilateral L5. Orthopedic surgery was consulted, neurology was also consulted and given the recommendations which help guide therapy. Patient was ultimately admitted to the hospitalist service. Discharge Plan Departure Patient Disposition: Admitted As Inpatient Clinical Impression: Hyperglycemia, JOSE (acute kidney injury), Muscle weakness affecting movement of foot, Numbness in feet Discharge Date/Time: 07/21/19 19:56 Admit Date/Time: 07/21/19 19:55 Admit Provider: Alexander Aguiar
--- NOTE | 2019-07-21 16:29 | DI.MRI.S_ITS ---
PROCEDURE: MR LUMBAR SPINE WO CON INDICATIONS: bilateral foot weakness and decreased sensation TECHNIQUE: Noncontrast sagittal T1 spin echo and T2 fast echo, sagittal STIR, axial T1 and T2 fast spin echo through the lumbar spine. In cases with scoliosis, additional coronal T2 fast spin echo may be performed. COMPARISON: [facility], CT, CT LUMBAR SPINE WO CON, 07/21/2019, 16:15. [facility], CR, XR LUMBAR SPINE 2-3V, 07/21/2019, 14:52. FINDINGS: Image quality: This examination is limited by involuntary motion artifact. Images are repeated, with some improvement. Alignment and Curvature: There is normal bony alignment. Bone Marrow: Marrow is of normal overall signal. No acute vertebral body compression fractures. Spinal Cord: Conus medullaris terminates at the L1 level. Visualized cord demonstrates normal signal and size. Paraspinous Soft Tissues: No paravertebral masses. T11-T12: Moderate loss of disc height is seen. There is a remote Schmorl's node seen involving the superior endplate of T12 anteriorly. No significant neural foraminal or central canal narrowing can be seen. T12-L1: Normal appearance. L1-L2: Normal appearance. L2-L3: The disc height is well-preserved. Loss of disc signal is seen at this level. Mild to moderate disc bulge is seen, with a mild central disc protrusion. There is moderate bilateral neural foraminal narrowing seen, left worse than right. Efgi-zy-jcksjeih central canal narrowing is seen. L3-L4: The disc height is well-preserved. Loss of disc signal is seen at this level. Moderate disc bulge is seen, with a mild central disc protrusion. [id number]-[id number] bilateral neural foraminal narrowing is seen. Moderate central canal narrowing is seen. L4-L5: There is minimal loss of disc height seen. Loss of disc signal is seen. Moderate disc bulge is seen, with a mild central disc extrusion, with slight inferior migration of the disc material. Mild facet joint hypertrophy is seen. There is at least moderate bilateral neural foraminal narrowing seen, right worse than left. There is a mild degree of compression seen upon the exiting right L4 nerve root. Moderate central canal narrowing is seen. L5-S1: Mild to moderate loss of disc height is seen. Loss of disc signal is seen. Moderate disc bulge is seen, with a central disc extrusion, as on series 5 images 30 and 31 and on series 2 image 10. Mild facet joint hypertrophy is seen. There is at least moderate bilateral neural foraminal narrowing seen. There is a minimal degree of compression seen upon the exiting nerve roots. Moderate central canal narrowing is seen. IMPRESSION: Multiple levels of lower lumbar spine degenerative change are seen, which are more prominent than would be expected patient of this age. Mild central disc extrusions are seen at L4-L5 and L5-S1. Mild compression can be seen upon the exiting right L4 nerve root and upon both exiting L5 nerve roots. Dictated by: Murphy Joseph M.D. on 07/21/2019 at 17:01 Approved by: Murphy Joseph M.D. on 07/21/2019 at 17:06
[2019-07-21 16:39] LABS: Appearance Urine UA CLEAR; Bilirubin Urine UA NEGATIVE (NEGATIVE); Color Urine UA YELLOW; Glucose Urine UA 2+ g/dL (Negative); Ketones Urine UA NEGATIVE (NEGATIVE); Leukocyte Esterase Urine UA NEGATIVE (NEGATIVE); Nitrite Urine UA NEGATIVE (Negative); Occult Blood Urine UA TRACE-LYSED (Negative); Protein Urine UA TRACE (Negative); Specific Gravity Urine UA <=1.005 (1.000-1.035); Urobilinogen Urine UA 0.2 E.U./dL (0.2)
[2019-07-21 16:43] LABS: Ur Creatinine 50 (Normal); Ur Specific Gravity 1.015 (Normal)
[2019-07-21 16:44] LABS: UR Morphine/Opiate cutoff 300 Negative (Negative); Urine Amphetamines Negative (Negative); Urine Barbiturates Negative (Negative); Urine Benzodiazepines Negative (Negative); Urine Cocaine Negative (Negative); Urine MDMA Negative (Negative); Urine Methadone Negative (Negative); Urine Methamphetamines Negative (Negative); Urine Oxycodone Negative (Negative); Urine Phencyclidine Negative (Negative); Urine Tetrahydrocannabinol Negative (Negative); Urine Tricyclic Antidepressant Negative (Negative); Urine pH 5 (Normal)
[2019-07-21 16:49] LABS: Culture Indicated Urine Cult Not Indicated
[2019-07-21 17:12] LABS: Vitamin B12 803 pg/mL (239-931)
[2019-07-21] MEDS: SODIUM CHLORIDE 0.9% 1,000 ML 150 ML IV (17:37)
--- NOTE | 2019-07-21 21:00 | PM.HP.1 ---
History of Present Illness History of Present Illness Date Patient Seen: 07/21/19 Time Patient Seen: 21:01 Chief complaint: FOOT DROP BOTH Narrative: Mr. Oh Clemente is a 43-year-old male with history significant for type 2 diabetes with peripheral neuropathy, hypertension, hyperlipidemia, alcohol dependence, recurrent alcoholic pancreatitis and current smoker presents to the ER following a fall. The patient states he woke this morning with decreased sensation to his bilateral feet beyond the normal neuropathy experience associated to his diabetes. Patient states he tried ambulate and reports he could not control his feet resulting in tripping and falling onto the question of a couch. Is the patient describes no such complaints or difficulty. He denies recent injury or trauma and sustained no injury or loss of consciousness and is fall today. Patient denies any recent complaints of illness, fevers or chills, nasal congestion or sore throat. He denies chest pain or palpitations has no shortness of breath cough or wheezing. Denies abdominal pain, nausea vomiting or changes in stooling habits. He does acknowledge he has had a weak stream for the last 2-3 weeks. Upon arrival to the ER the patient is afebrile is temperature 98.6?, his heart rate of 86, hypotensive at 69/41, respirations 13 an oxygen saturation 95%. The patient underwent imaging with a CT of the head that found no acute intracranial process. He also underwent an MRI which found lumbar degenerative changes greater than expected for age with mild disc extrusion at L5 4-5 and L5-S1 and mild compression of the right L4 and bilateral L5 nerve roots. Was incidental finding hydronephrosis and hydroureter without obstruction. On laboratory analysis his white count of 9.2, hemoglobin of 14.0, hematocrit 40.1 with low platelets at 131. He is hyponatremic at 131 with a potassium of 3.9, BUN of 39 and creatinine of 2.5. He has a nonfasting glucose of 475. His total bilirubin is 0.5, AST of 30, ALT of 12 and alkaline phosphatase of 131 with an albumin of 2.9 and lipase of 218. Tox screen reveals an alcohol level of 322. Urinalysis pain which is positive for glucose, trace protein and negative for infection. The patient received 2 L of normal saline 1 being a banana bag with improvement of blood pressure to within normal range. [place] neurology was consulted with no further recommendations. Orthopedics was consulted and Dr. Doll this agrees to evaluate the patient. The patient is admitted to the medicine service for further evaluation and treatment of neuropathy hyperglycemia and acute kidney injury. Patient History Medical History (Updated 07/21/19 @ 22:27 by TOY Henry) Alcohol dependence (Inactive) Current every day smoker (Acute) Diabetes type 2, controlled (Acute) Hyperlipidemia (Inactive) Hypertension (Acute) Numbness in feet (Inactive) Pancreatitis (Acute) Surgical History (Updated 07/21/19 @ 22:34 by TOY Henry) History of toe surgery (Acute) Family & Social History Family History (Updated 07/21/19 @ 22:35 by TOY Henry) Father No known problems Mother Diabetes mellitus Social History: household members none Prior Living Arrangements RV Safety & Behavioral: Feels Safe in Current Yes Environment Been Physically Hurt or No Threatened By a Person Suicidal Ideation Description None Suicide Plan Description No Plan Tobacco & Substance use: Tobacco type cigarettes Smoking Status Current every day smoker Smoking packs per day 1 alcohol intake current alcohol intake frequency 0-2 drinks per day Substance Use Type does not use Comment: The patient is single and lives in a travel trailer. He endorses family history of his father being in good health and his mother having diabetes he has 2 older and 2 younger brothers who via describes as in good health with no known medical problems. He has a 23-year-old daughter who is in good health. 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 Smoking: Patient is a current pack-a-day smoker with a 25 pack-year history of smoking. Alcohol: Every day drinker with 2 doubles after work daily with more weekends. Substance use: The patient denies recreation pharmaceuticals herbal or cannabis products. Advanced directives: The patient has no formal advanced directives but states this desire to be FULL CODE. He designates his father to be his surrogate decision maker. Meds Home Medications and Allergies Home Medications Medication Instructions Recorded Confirmed Type Lantus U-100 Insulin 22 units SUBCUT DAILY 11/10/18 07/21/19 History [place]-3 1,000 mg PO DAILY 11/10/18 07/21/19 History aspirin 81 mg PO DAILY 11/10/18 07/21/19 History atorvastatin 80 mg PO BEDTIME 11/10/18 07/21/19 History lisinopril-hydrochlorothiazide 1 tab PO DAILY 11/10/18 07/21/19 History metformin 1,000 mg PO BID 11/10/18 07/21/19 History Allergies Allergy/AdvReac Type Severity Reaction Status Date / Time No Known Drug Allergies Allergy Verified 07/21/19 13:53 Review of Systems Review of Systems Narrative: All systems are reviewed and are negative and reviewed in HPI above. Exam Vital Signs (past 8 hours): - 07/21/19 13:45 07/21/19 14:04 07/21/19 14:15 Temperature 98.5 F Pulse Rate 91 H 87 Pulse Rate [Bilateral Posterior Tibial] 91 H Respiratory Rate 20 22 Blood Pressure 93/60 Blood Pressure [Left Arm] 93/60 Blood Pressure [Right Arm] 69/41 L Pulse Oximetry 97 97 07/21/19 14:19 07/21/19 14:28 07/21/19 14:30 Temperature Pulse Rate 86 88 86 Pulse Rate [Bilateral Posterior Tibial] Respiratory Rate 13 12 17 Blood Pressure Blood Pressure [Left Arm] 69/41 L 69/43 L Blood Pressure [Right Arm] 70/40 L Pulse Oximetry 95 95 95 07/21/19 14:36 07/21/19 14:48 07/21/19 14:51 Temperature Pulse Rate 89 91 H 85 Pulse Rate [Bilateral Posterior Tibial] Respiratory Rate 15 22 26 H Blood Pressure Blood Pressure [Left Arm] 85/50 L Blood Pressure [Right Arm] 74/42 L 73/43 L Pulse Oximetry 95 96 07/21/19 15:07 07/21/19 15:29 07/21/19 15:30 Temperature Pulse Rate 88 86 85 Pulse Rate [Bilateral Posterior Tibial] Respiratory Rate 22 12 20 Blood Pressure Blood Pressure [Left Arm] 95/56 L 97/66 85/56 L Blood Pressure [Right Arm] Pulse Oximetry 95 98 07/21/19 15:45 07/21/19 15:53 07/21/19 16:13 Temperature Pulse Rate 88 80 80 Pulse Rate [Bilateral Posterior Tibial] Respiratory Rate 15 22 13 Blood Pressure Blood Pressure [Left Arm] 96/64 96/74 100/62 Blood Pressure [Right Arm] Pulse Oximetry 99 96 100 07/21/19 16:15 07/21/19 17:40 07/21/19 18:30 Temperature Pulse Rate 83 94 H 92 H Pulse Rate [Bilateral Posterior Tibial] Respiratory Rate 18 19 17 Blood Pressure Blood Pressure [Left Arm] 100/62 Blood Pressure [Right Arm] 95/60 112/76 Pulse Oximetry 99 96 99 07/21/19 20:00 07/21/19 20:58 Temperature 98.6 F Pulse Rate 97 H 89 Pulse Rate [Bilateral Posterior Tibial] Respiratory Rate 19 16 Blood Pressure 137/86 Blood Pressure [Left Arm] Blood Pressure [Right Arm] 146/91 H Pulse Oximetry 97 96 Oxygen Delivery Method Room Air Narrative Exam Narrative: GENERAL APPEARANCE: well developed, well nourished, in no acute distress. HEENT: Normocephalic, PERRLA, conjunctiva clear, EOMs intact without nystagmus, no sinus tenderness to percussion, no rhinorrhea, mucous membranes are moist and pink without lesions or exudate. NECK/THYROID: neck supple, no JVD, no carotid bruit, no thyromegaly, trachea midline. LYMPH NODES: no cervical or supraclavicular lymphadenopathy. SKIN: [place], warm and dry, no visible lesions, rashes, ulcerations or petechiae. HEART: regular rate and rhythm, S1-S2, 1/6 systolic murmur loudest at right upper sternal border, no rubs or gallops, brisk capillary refill, no edema LUNGS: clear to auscultation bilaterally, no coarseness crackles or wheezing, no cough present CHEST: Symmetrical movement, no accessory muscle use, good tidal volume. ABDOMEN: Soft, no distention, no abdominal tenderness, no guarding or peritoneal signs, no organomegaly, no flank or suprapubic tenderness, no perineal tenderness, active bowel tones. BACK: Normal curvature, nontender to palpation, no CVA tenderness on percussion EXTREMITIES: moves all extremities, strength is 5/5 and symmetrical, no back pain with straight leg raise NEUROLOGIC: AAO x4, cranial nerves II-XII grossly intact, bilateral lower extremity neuropathy bilateral feet including the distal 3rd of the lower leg, strong plantar flexion, week pronation supination of the feet, unable to dorsiflex toes or foot. PSYCH: Good judgment, good insight, linear thought process, cooperative, appropriate with stable behavior Objective Labs Result Diagrams: 07/21/19 14:13 07/21/19 14:13 Labs: Laboratory Results - last 24 hr 07/21/19 07/21/19 07/21/19 14:13 14:13 14:13 WBC 9.2 RBC 4.21 L Hgb 14.0 Hct 40.1 L MCV 95.1 MCH 33.2 MCHC 34.9 RDW 13.5 Plt Count 131 L Neut % (Auto) 41.2 L Lymph % (Auto) 48.5 H Terry % (Auto) 8.1 Eos % (Auto) 1.8 L Baso % (Auto) 0.4 Neut # (Auto) 3800 Lymph # (Auto) 4500 Terry # (Auto) 700 Eos # (Auto) 200 Baso # (Auto) 0 Sodium 131 L Potassium 3.9 Chloride 83 L Carbon Dioxide 25 BUN 39 H Creatinine 2.50 H Estimated GFR 28.1 L BUN/Creatinine Ratio 15.6 Glucose 475 H Calcium 9.1 Total Bilirubin 0.4 AST 30 ALT 12 Alkaline Phosphatase 121 Total Protein 7.2 Albumin 4.3 Globulin 2.9 Albumin/Globulin Ratio 1.5 Lipase 218 Vitamin B12 Urine Color Urine Appearance Urine pH Ur Specific [place] Urine Protein Urine Glucose (UA) Urine Ketones Urine Occult Blood Urine Nitrate Urine Bilirubin Urine Urobilinogen Ur Leukocyte Esterase Urine RBC Urine WBC Urine Bacteria Ur Culture Indicated? U Opiates 300ng/mL cut Ur Oxycodone Screen Urine Methadone Screen Ur Barbiturates Screen U Tricyclic Antidepress Ur Phencyclidine Scrn Ur Amphetamines Screen U Methamphetamines Scrn Ur MDMA Scrn (Ecstasy) U Benzodiazepines Scrn Urine Cocaine Screen U Marijuana (THC) Screen Ethyl Alcohol 322 H 07/21/19 07/21/19 07/21/19 14:27 16:03 16:03 WBC RBC Hgb Hct MCV MCH MCHC RDW Plt Count Neut % (Auto) Lymph % (Auto) Terry % (Auto) Eos % (Auto) Baso % (Auto) Neut # (Auto) Lymph # (Auto) Terry # (Auto) Eos # (Auto) Baso # (Auto) Sodium Potassium Chloride Carbon Dioxide BUN Creatinine Estimated GFR BUN/Creatinine Ratio Glucose Calcium Total Bilirubin AST ALT Alkaline Phosphatase Total Protein Albumin Globulin Albumin/Globulin Ratio Lipase Vitamin B12 803 Urine Color Yellow Urine Appearance Clear Urine pH 5.0 Ur Specific [place] <=1.005 Urine Protein Trace H Urine Glucose (UA) 2+ H Urine Ketones Negative Urine Occult Blood Trace-lysed Urine Nitrate Negative Urine Bilirubin Negative Urine Urobilinogen 0.2 Ur Leukocyte Esterase Negative Urine RBC None seen Urine WBC None seen Urine Bacteria None seen Ur Culture Indicated? Cult not indicated U Opiates 300ng/mL cut Negative Ur Oxycodone Screen Negative Urine Methadone Screen Negative Ur Barbiturates Screen Negative U Tricyclic Antidepress Negative Ur Phencyclidine Scrn Negative Ur Amphetamines Screen Negative U Methamphetamines Scrn Negative Ur MDMA Scrn (Ecstasy) Negative U Benzodiazepines Scrn Negative Urine Cocaine Screen Negative U Marijuana (THC) Screen Negative Ethyl Alcohol Assessment & Plan Assessment & Plan narrative: This is a 43-year-old male patient who presents to the ER with an acute loss of sensation to bilateral feet superimposed on prior lateral neuropathy with associated inability to dorsiflex either foot. The patient has had no history of trauma or injury was normal ambulation yesterday as difficulty walking today resulting in a nontraumatic ground level fall landing onto the question of a couch. 1. Acute neuropathy with motor deficit bilateral lower extremities, present on admission, active -the patient was ambulatory without difficulty yesterday, woke today with increased paresthesias overlying pre-existing diabetic neuropathy. 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 No complaints of back pain and no pain with straight leg raise. -no history of spinal trauma or complaints of back pain, no central lesion, cranial nerves intact. Blood sugar is elevated at 475 may exacerbate neuropathy. -MRI findings: Mild central disc extrusions are seen at L4-L5 and L5-S1, Mild compression can be seen upon the exiting right L4 nerve root and upon both exiting L5 nerve roots. -B12 level is found to be 803, elevated phosphate at 5.1 calcium is within normal range 9.1. -will correct electrolyte and blood sugar imbalances. -Dr. Doll, orthopedics has agreed to consult and we appreciate her evaluation recommendations. -PT and OT to evaluate treat 2. Diabetes mellitus type 2, insulin-dependent, uncontrolled, present on admission, active -blood sugars 475 on admission to the emergency department. Patient without Kussmaul's respirations and has no ketones in his urine. -serum potassium is 3.9, magnesium is 2.4 and patient has elevated phosphate at 5.1. -medium carbohydrate diet. -Continued Lantus 22 units daily. -ACHS blood glucose checks and low-dose correctional scale insulin. -will recheck chemistry with magnesium and phosphate at 11:00 p.m.. 3. Acute kidney injury, present on admission, active. -patient with a BUN of 39 and creatinine 2.5 on admission. Baseline creatinine from labs in October is 0.5-1.0. -injury related to acute dehydration as well as hypotension with blood pressure of 69/41 upon arrival in the ER. -patient denies flank pain or difficulty voiding. MRI notes incidental finding of hydronephrosis as well as hydroureter without obstruction. -patient does not manifest hyperkalemia having potassium level of 3.9 but does have elevated phosphate at 5.1 which may be participatory in patient's neurological symptoms. -urinalysis is positive for glucose, trace protein and negative for infection. Culture not indicated. -patients receive fluid bolusing 2 L will continue normal saline at 150 cc/hour. -will assess post dried residual. -will start tamsulosin 0.4 mg daily, 1st dose now. -will monitor renal function on chemistries. -avoid renal toxic agents and renally dose medications as needed. 4. Acute hyponatremia, present on admission, active -Likely secondary to dehydration and dilutional related to his IV hydration secondary to hyperglycemia. 5. Acute thrombocytopenia, present on admission, active -believed to be secondary to dehydration, JOSE but also may be associated with development of alcoholic liver disease. -initial hypertensive related to dehydration, no evidence of bleeding or bruising. -will monitor blood count. 6. Alcohol dependence, chronic, present on admission. Stable. -patient with ETOH level of 322 on admission to the emergency department. -patient enters is drinking 2 drinks daily after work described as doubles and more weekends. -prior history of recurrent alcoholic pancreatitis not evidence at this time, lipase is 218. -patient received a banana bag in the emergency department.. -ordered folate and thiamine p.o. daily. -No evidence of alcohol withdrawal, no indication to initiate CIWA protocol. 7. Hypertension, chronic, hypotensive on admission, active. -admission blood pressure was 69/41 with heart rate of 86 improved to normal tensive with 2 L of IV fluid. -will continue normal saline 150 cc/hour -will hold antihypertensives and monitor blood pressure trends. -when blood pressure stabilizes will continue patient's home regimen of lisinopril and continue told hydrochlorothiazide due to renal status. 8. Hyperlipidemia, chronic, present on admission. Stable. -Continued atorvastatin 80 mg daily at bedtime. VTE prophylaxis: Bilateral SCDs, Lovenox IV fluid: Normal saline at 150 cc/hour. Diet: Medium carbohydrate The patient is admitted to the hospital related to the severity of his symptoms and risk for complications and adverse events. The patient is admitted as an outpatient with expected length of stay to be less than 2 midnights. Scores GCS [place] coma scale eye opening: Spontaneous [place] coma scale verbal response: Orientated [place] coma scale motor response: Obey commands Jhonatan coma scale total score: 15 Quality VTE Deep Vein Thrombosis/Pulmonary Embolism Present on Admission: No
[2019-07-21 21:13] LABS: Magnesium 2.4 mg/dL (1.6-2.3); Phosphorous 5.1 mg/dL (2.5-4.5)
[2019-07-21] MEDS: INSULIN ASPART 100 UNIT/ML INSULN PEN SUBCUT (21:38)
[2019-07-21] MEDS: TAMSULOSIN 0.4 MG CAPSULE PO (22:32)
[2019-07-21] MEDS: NICOTINE 21 MG PATCH TOP (22:32)
[2019-07-21 23:18] LABS: Magnesium 2.7 mg/dL (1.6-2.3)
[2019-07-21 23:19] LABS: BUN Creatinine Ratio 18.4 (6-22); Blood Urea Nitrogen 35 mg/dL (9-20); Calcium 8.7 mg/dL (8.4-10.2); Carbon Dioxide 28 mmol/L (22-32); Chloride 89 mmol/L (98-107); Estimated Glomerular Filt Rate 38.5 mL/min (>60); Glucose 440 mg/dL (70-100); HEMOLYSIS < 15 (0-50); Phosphorous 3.6 mg/dL (2.5-4.5); Potassium 3.8 mmol/L (3.4-5.1); Sodium 130 mmol/L (137-145)
--- NOTE | 2019-07-21 23:51 | PC.NURSE ---
Addendum entered by Alie Dean R.N. 07/22/19 02:15: Patient urinated into toilet rather than using urinal as per instructions so unknown how much he voided. PVR was 242. TOY Aguiar, informed Original Note: Patient is alert and oriented. Breath sounds diminished but CTA with RA sat of 97%. HRR. Does have elevated BP of 142/97. Denies nausea. BT present and is passing flatus. Has not yet voided since admission but is aware TELEGRAPH OFFICE MANAGER has ordered bladder scan so will alert staff after using urinal; denies any dysuria, frequency or urgency. Able to turn self in bed. Has chronic neuropathy but now with new numbness of bilateral feet extending to just above ankle. Able to push with feet but not pull back; describes as like foot drop. States was able to take a few steps with 1 assist + walker. Bilateral SCD's applied as per MD order. Recent fall so fall risk score is high and bed alarm is activated.
[2019-07-22] MEDS: INSULIN ASPART 100 UNIT/ML 10ML VIAL SUBCUT (00:27)
[2019-07-22 03:23] VITALS: BP 159/99; PULSE 85; RESP 18; TEMP 36.9; O2SAT 96
[2019-07-22] MEDS: SODIUM CHLORIDE 0.9% 1,000 ML 100 ML IV (04:00)
[2019-07-22 05:31] LABS: Add Manual Diff / Slide Review NO; Basophils Absolute Auto 0 /uL (0-100); Basophils Percent Auto 0.6 % (0-2); Eosinophils Absolute Auto 100 /uL (0-450); Eosinophils Percent Auto 2.3 % (2-4); Hematocrit 35.3 % (41-53); Hemoglobin 12.6 g/dL (13.5-17.5); Lymphocytes Absolute Auto 1900 /uL (1100-4500); Lymphocytes Percent Auto 47.9 % (25-40); Mean Corpuscular HGB Conc 35.5 % (30-36); Mean Corpuscular Hemoglobin 33.5 PG (26-34); Mean Corpuscular Volume 94.2 fL (80-100); Monocytes Absolute Auto 400 /uL (0-900); Monocytes Percent Auto 9.1 % (3-14); Neutrophils Absolute Auto 1600 /uL (1500-7000); Neutrophils Percent Auto 40.1 % (50-75); Platelet Count 62 X10^3/uL (150-400); Red Blood Cell Count 3.75 X10^6/uL (4.5-5.9); Red Cell Distribution Width 13.3 % (11.6-14.8); White Blood Cell Count 3.9 X10^3/uL (4.5-11.0)
[2019-07-22 05:46] LABS: BUN Creatinine Ratio 25.7 (6-22); Blood Urea Nitrogen 36 mg/dL (9-20); Calcium 8.8 mg/dL (8.4-10.2); Carbon Dioxide 27 mmol/L (22-32); Chloride 94 mmol/L (98-107); Estimated Glomerular Filt Rate 54.8 mL/min (>60); Glucose 255 mg/dL (70-100); HEMOLYSIS < 15 (0-50); Potassium 4.1 mmol/L (3.4-5.1); Sodium 133 mmol/L (137-145)
[2019-07-22 05:47] LABS: Hemoglobin A1C% w Est Avg Glu 12.3 % (4.0-6.0)
--- NOTE | 2019-07-22 07:45 | DI.US.S_ITS ---
PROCEDURE: US RENAL COMPLETE INDICATIONS: JOSE; BILATERAL HYDRONEPHROSIS TECHNIQUE: Real-time scanning was performed of the kidneys and bladder, with image documentation. COMPARISON: None. FINDINGS: Kidneys: Kidneys are normal in size. Right kidney measures 12.2 cm long; left kidney measures 12.9 cm long. Right renal cortical thickness is 5 cm; left renal cortical thickness is 2.0 cm. Renal cortical echotexture is normal. No hydronephrosis or nephrolithiasis. No suspicious solid mass lesions. Bladder: Pre-void bladder volume is 271 mL. Post-void residual is minimal zero mL. Pre-void images demonstrate no intraluminal masses or stones. On pre-void images, neither the right or left ureteral jets are noted with color Doppler interrogation. (Of note, ureteral jets may not be detectable in up to 25% of cases due to insufficient differences in specific gravity between ureteral and bladder urine). Miscellaneous: No free pelvic fluid. IMPRESSION: Normal renal sonogram without evidence of hydronephrosis. Dictated by: Lizeth Lambert MD, PhD on 07/22/2019 at 10:22 Approved by: Lizeth Lambert MD, PhD on 07/22/2019 at 10:23
[2019-07-22 08:00] VITALS: BP 157/106; PULSE 87; RESP 18; TEMP 36.9; O2SAT 99
[2019-07-22] MEDS: INSULIN ASPART 100 UNIT/ML INSULN PEN SUBCUT ×4 (08:51→21:45)
[2019-07-22] MEDS: INSULIN GLARGINE 100 UNIT/ML 3ML PEN 22 UNIT SUBCUT (08:52)
[2019-07-22] MEDS: LISINOPRIL 20 MG TABLET PO (08:55)
[2019-07-22] MEDS: THIAMINE 100 MG TABLET PO (08:56)
[2019-07-22] MEDS: NICOTINE 21 MG PATCH TOP (08:56)
[2019-07-22] MEDS: ENOXAPARIN 40 MG/0.4 ML SYRINGE SUBCUT (08:56)
--- NOTE | 2019-07-22 09:20 | OT.IP.EVAL ---
Past Medical History (Last Updated 07/21/19 @ 22:27 by TOY Henry) Alcohol dependence (Inactive) Current every day smoker (Acute) Diabetes type 2, controlled (Acute) Hyperlipidemia (Inactive) Hypertension (Acute) Numbness in feet (Inactive) Pancreatitis (Acute) Surgical History (Last Updated 07/21/19 @ 22:34 by TOY Henry) History of toe surgery (Acute) Occupational Therapy Inpatient Evaluation/Re-Eval M1 PT/OT-IP Prior Functional Status Start: 07/22/19 08:24 Freq: NEEDED Status: Active Protocol: Document 07/22/19 09:45 HH (Rec: 07/22/19 11:55 [id number]) Medical Review Prior Functional Status Medical History Reviewed Yes Communication WNL Mobility and Gait Pt was independent with all mobility without AD. 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 Activities of Daily Living and IADL's independent with all ADLs, IADLS, driving Prior Functional Level (Other details) Pt reports he only checks his blood sugar a couple times a week and his glucose level often stays at >200. Social History Household Members none Living Arrangements RV- 30 ft Number of Floors (Floors) One Floor Number of Stairs To Enter/Railing? 3 LAMONT with B rails. 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 M2 OT-IP Current Condition Start: 07/22/19 11:55 Freq: Status: Active Protocol: Document 07/22/19 09:20 PJM (Rec: 07/22/19 12:39 PJ [id number]) Occupational Therapy Current Condition Current Condition Evaluation Date 07/22/19 Treatment Diagnosis decr'd functional mobility due to B foot drop, sensory loss in feet Diagnosis Onset Date 07/21/19 Post Operative Precautions Other Precautions fall risk due to B foot drop M3 OT- IP Subjective and Pain Start: 07/22/19 11:55 Freq: Status: Active Protocol: Document 07/22/19 09:20 PJM (Rec: 07/22/19 12:39 PJ [id number]) OT- Subjective Occupational Therapy Visit Type Type Initial Evaluation Visit Start Time 09:00 Visit Stop Time 09:20 Total Visit Minutes 20 Notes OT session shortened today by need for pt to have kidney ultrasound Occupational Therapy Visit Comments Patient Comments 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 Patient/Caregiver Goals to be able to walk without a device and return to work OT Pain Assessment Pain When Pain Assessed After Treatment Pain Present Pain Present Denied Pain M4 OT- IP ADL's Start: 07/22/19 11:55 Freq: Status: Active Protocol: Document 07/22/19 09:20 PJ (Rec: 07/22/19 12:39 [facility] [id number]) OT [id number] General Evaluation Self-Feeding Ability Independent OT ADL-Grooming General Evaluation Grooming Ability Standby Assistance Comments OT Grooming Comments standing at sink OT ADL-Oral Care General Eval Oral Care Ability Standby Assistance Comments Oral Care Comments standing at sink OT ADL-Dressing General Eval Upper Body Dressing Ability Independent Lower Body Dressing Ability Independent Socks OT ADL-Toileting General Evaluation Toileting Ability Independent OT ADL-Bathing Comments OT Bathing Comments to be assessed M5 OT- IP IADL's Start: 07/22/19 11:55 Freq: Status: Active Protocol: Document 07/22/19 09:20 PJM (Rec: 07/22/19 12:39 [facility] [id number]) OT-Instrumental Activities of Daily Living Deficits IADL Deficits Identified Deficits Home Safety Awareness Ability to Problem Solve Emergency Able to Problem Solve Situations Medication Management Medication Management Comments Pt needs to manage diabetes more effectively. Money Management Money Management No Deficits Identified Meal Preparation Meal Preparation No Deficits Identified Library Aide Library Aide Comments pt may need assist with laundry and grocery shopping after d/c pending progress with mobility Driving Driving Comments pt will need AFO's and adequate sensation in feet to return to driving M6 OT- IP Functional Cognition Start: 07/22/19 11:55 Freq: Status: Active Protocol: Document 07/22/19 09:20 PJM (Rec: 07/22/19 12:39 [facility] [id number]) Cognitive Factors Limiting Selfcare Function Cognitive Ability Level of Alertness Alert Patient Orientation Name,Age,Birthday,Month,Date, Year,Day of Week,Place, Situation Attention Span Ability Capable of Focused Attention, Capable of Sustained Attention Ability to Follow Commands Able to Follow Multi-Step Commands Memory Description No Deficits Noted Cognitive Comments Cognitive Assessment Comments Pt has decreased insight into need for better management of diabetes and lifestyle choices. OT- Vision and Hearing OT- Hearing Assessment OT- Hearing Assessment WFL OT- Vision Assessment Visual Acuity WFL M7 OT- IP Mobility and Balance Start: 07/22/19 11:55 Freq: Status: Active Protocol: Document 07/22/19 09:20 PJM (Rec: 07/22/19 12:39 PJM [id number]) OT- Bed Mobility Assessment Rolling Type of Rolling Roll to Right Level of Assistance Independent Supine to Sit Supine to Sit Assist Independent Sit to Supine Sit to Supine Assist Independent Scooting Scooting to Edge of Bed Independent OT-Transfer Assessment Sit to and From Stand Sit to and from Stand Standby Assistance,1 Person Assistance Transfers Transfer Ability Standby Assistance Technique Transfer Destination Bed Transfer Technique Stand Step Pivot Devices Transfer Assistive Devices Gait Belt,Front Wheeled Walker OT- Gait Assessment Gait Gait Assistance Required: Contact Guard Assist Distance (Feet) 15 Assistive Devices Assistive Device Gait Belt,Front Wheeled Walker Comments Gait Ability Comments pt demonstrates steppage gait due to B foot drop. P.T. eval pending. OT- Balance Assessment Sitting Balance and Reactions Static Sitting Balance Ability Good Dynamic Sitting Balance Ability Good Standing Balance and Reactions Static Standing Balance Ability Good Comments Other Balance Tests/Deviations/Treatment see P.T. evaluation for : further details and assessment of balance M8 OT- IP Objective Assessments Start: 07/22/19 11:55 Freq: Status: Active Protocol: Document 07/22/19 09:20 PJM (Rec: 07/22/19 12:39 PJ [id number]) OT Gross Range of Motion Upper Extremity Range of Motion Assessment Within Functional Limits OT Strength Upper Extremity Strength Assessment Within Functional Limits Hand Costing Analyst Strength Hand Dominance Right OT- Coordination Assessment Comments Coordination Comments BUE WNL OT-Muscle Tone Assessment Muscle Tone WNL Yes OT Sensation Assessment Comments Summary Comments Pt reports episodes of numbness in 4th, 5th fingers of B hands; none today Edema Edema Absent M9 OT- IP Assessment and Plan Start: 07/22/19 11:55 Freq: Status: Active Protocol: Document 07/22/19 09:20 PJM (Rec: 07/22/19 12:39 PJ [id number]) OT Summary Assessment and Plan Potential Rehabilitation Potential Good Analytic Complexity at Evaluation Low Summary OT Impairments Balance,Functional Mobility, Bathing,Shower Transfers Assessment Summary Low complexity OT assessment completed on this 43 yr old man admitted with hyperglycemia (BG 427) and ETOH level 322 who developed sudden onset of B foot drop and poor sensation in B feet to ankle with pre-existing peripheral neuropathy. 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 His job requires frequent daily use of stairs and some ladders. He lives alone in a 30 ft RV in [place]. Pt presents with performance deficits primarily in functional mobility, now requiring use of FWW for mobility with B AFO's to be provided. Pt also has deficits in IADLS including driving, grocery shopping, and laundry. Pt will benefit from 1-2 additional OT visits to increase independence with showering and problem solve IADL strategies. Goals Grooming Goal Independent Bathing Goal Independent Shower Transfer Goal Independent,Walk-in Shower OT-Other Goals Grooming to be done standing at sink with FWW. Shower to be done standing as per home set up. Days to Meet Goals 2 Frequency of Treatment Frequency Of Treatment Once a Day Treatment Plan OT Treatment Plan ADL Training,Patient/Family Education Discharge Recommendations OT Discharge Recommendations Home
--- NOTE | 2019-07-22 11:24 | CM.DANOTE ---
Addendum entered by Luna Campo LPN 07/22/19 11:54: Of note: pt was here in October: 11/10-11/13 with a d/c to his home setting at that time. His insurance and work situation were in flux at that time. Addendum entered by Luna Campo LPN 07/22/19 11:33: Pt confirms that he has only been seeing Dr. Huynh for a short time and she is just starting to focus on my diabetes. Left him to continue his discussion with Ginny and with plans to return later to continue the d/c planning discussion. PT and OT have been ordered. Dr. Doll is consulting for orthopedics to see what role the spinal cord impingements may be having on some of pt's symptoms. Documentation also shows with with ongoing daily alcohol use and more on weekend when he is not working. ETOH level 322 when pt arrived to hospital. Daily cigarette smoker. 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. He reportedly resides in a travel trailer...will find out more of specifics later. Original Note: Discharge Planning/Care Management DCP: assessment: case received, EMR reviewed. Discussed in Team Rounds. Met with pt briefly as he was in process of interview with stock associate Ginny. Introduced self and role. Pt is a 43 year old male who admitted to care of hospitalist team. PCP: Dr. Latia Huynh/ physician at [facility] Industries: [employer]. Payer: [facility]. CM Discharge Assessment Start: 07/22/19 11:22 Freq: Status: Active Protocol: Document 07/22/19 11:23 ITV (Rec: 07/22/19 11:24 ITV [id number]) Discharge Planning Assessment Advance Directives? Yes History Provided By Patient,Medical Record Prior Living Arrangements RV Independent with ADL's Yes Is patient alert and oriented? Yes Review Status In Process
--- NOTE | 2019-07-22 11:56 | PT.IIE ---
Surgical History (Last Updated 07/21/19 @ 22:34 by TOY Henry) History of toe surgery (Acute) Medical History (Last Updated 07/21/19 @ 22:27 by TOY Henry) Alcohol dependence (Inactive) Current every day smoker (Acute) Diabetes type 2, controlled (Acute) Hyperlipidemia (Inactive) Hypertension (Acute) Numbness in feet (Inactive) Pancreatitis (Acute) Physical Therapy Inpatient Evaluation/Re-Eval M1 PT/OT-IP Prior Functional Status Start: 07/22/19 08:24 Freq: NEEDED Status: Active Protocol: Document 07/22/19 09:45 (Rec: 07/22/19 11:55 [id number]) Medical Review Prior Functional Status Medical History Reviewed Yes Communication able to make needs known. no deficits noted Mobility and Gait Pt was independent for all mobility without AD. 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 Pt denies any ongoing/ progressive weakness on LE/UE except numbness on B feet. Activities of Daily Living and IADL's independent for all ADLs and IADLs without AD. Prior Functional Level (Other details) Pt reports he has poor management with his sugar level and his glucose level often stays at >200 Social History Household Members none Living Arrangements RV Number of Floors (Floors) One Floor Number of Stairs To Enter/Railing? 3 LAMONT with B rails. 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 Oh Clemente is a 43-year-old male who is single and lives in a travel trailer. He endorses family history of his father being in good health and his mother having diabetes he has 2 older and 2 younger brothers who via describes as in good health with no known medical problems . He has a 23-year-old daughter who is in good health . Patient is a current pack-a- day smoker with a 25 pack-year history of smoking and every day drinker with 2 doubles after work daily with more weekends with history significant for type 2 diabetes with peripheral neuropathy, hypertension, hyperlipidemia, alcohol dependence, recurrent alcoholic pancreatitis and current smoker M2 PT-IP Current Condition Start: 07/22/19 08:24 Freq: NEEDED Status: Active Protocol: Document 07/22/19 09:45 (Rec: 07/22/19 11:55 [email or web address]) Physical Therapy Current Condition Current Condition Evaluation Date 07/22/19 Treatment Diagnosis GLF, acute neuropathy (BLE), JOSE, uncontrolled type II DM Onset Date 07/21/19 Weight Bearing Status Weight Bearing Status Full Weight Bearing M3 PT-IP Subjective Start: 07/22/19 08:24 Freq: NEEDED Status: Active Protocol: Document 07/22/19 09:45 HH (Rec: 07/22/19 11:55 [id number]) Subjective Physical Therapy Visit Type Type Initial Evaluation Visit Start Time 09:45 Visit Stop Time 10:30 Total Visit Minutes 45 Notes Pt's glucose level at 255 this early am. X-ray, CT scan and MRI did not show significant hernition of intervertebral discs but mild degerative joint changes at L5-S1. Dr. Doll attended last 15 mins of IE for further evaluation. Number of REWORK MACHINE OPERATOR Visits 0 Physical Therapy Visit Comments Patient Comments I could feel my feet and move my feet a little bit more today. Patient Goals To return home and cont his work Therapy Pain Assessment Pain Present Pain Present Denied Pain M4 PT-IP Mobility and Gait Start: 07/22/19 08:24 Freq: NEEDED Status: Active Protocol: Document 07/22/19 09:45 HH (Rec: 07/22/19 11:55 [id number]) PT-Bed Mobility Assessment Rolling Type of Rolling Roll to Left Level of Assist Independent Supine to Sit Supine to Sit Independent Sit to Supine Sit to Supine Independent Scooting Scooting to Edge of Bed Independent PT-Transfer Assessment Sit to and From Stand Sit to and from Stand Contact Guard Assistance Equipment Transfer Assistive Device Bed Rail,Front Wheeled Walker Orthotic/Prosthetic Devices or Brace: No Transfers Transfer Destination Bed Transfer Technique amb with FWW Transfer Ability Level of Assist Contact Guard Assistance Comments Mobility Comments Pt was in bed upon assessment. BP at 154/85 HR 86. He was able to complete scooting and supine to sit independently. After physical and neurological assessement in seated position, pt was able to stand up with CGA and FWW. C/O weakness of B feet. He then amb half of the AC unit and returned to bed with CGA and back to supine independently. BP at 159/84 HR 84 after session and call light within reach. Gait Assessment Gait Gait Assistance Required: Contact Guard Assist Distance (Feet) 200 Able to Maintain Weight Bearing Status Yes During Gait Assistive Devices Assistive Device Gait Belt,Front Wheeled Walker Orthotic/Prosthetic Devices or Brace: No Gait Deviations General Gait Pattern Decreased Stride Length, Decreased Feet Clearance Factors Limiting Gait Function Factors Limiting Gait Function Decreased Activity Tolerance, Decreased Strength,Limited Range of Motion,Pain,Poor Balance Comments Gait Comments Pt was able to amb for half of the AC unit with FWW and CGA. Pt demonstrated B foot drop who has difficulty to DF pass neutral (0 degrees). Pt used B steppage gait with increased B hip flexion and knee flexion to clear both feet during swing phase, along wtih foot slap for initial contact. Pt reports he does not feel safe to amb without FWW at this point. He also c/o increased tingling and numbness at R foot towards the end of gait training. Stair Climbing Assessment Evaluation Level of Assist On Stairs Contact Guard Assistance Devices Stair Climbing Assistive Devices Left Railing,Right Railing Technique/Endurance Stair Climbing Direction Ascend and Descend Stair Climbing Technique Step Over Step,Step to Step Number of Steps Climbed 3 Query Text: Stair Climbing Set # Repetitions (reps) 1 Comments Stair Climbing Comments Pt uses step over pattern with high steppage pattern for feet clearance for ascend. But he then uses step to pattern for descent and increased WB through UEs on handles. Pt c/o difficulty with eccentric control of B ankles and felt unsteady at this point. PT-Balance Assessment Sitting Balance and Reactions Static Sitting Balance Ability Normal Dynamic Sitting Balance Ability Good Standing Balance and Reactions Static Standing Balance Ability Good Dynamic Standing Balance Ability Good Device Used FwW M5 PT-IP Objective Assessments Start: 07/22/19 08:24 Freq: NEEDED Status: Active Protocol: Document 07/22/19 09:45 (Rec: 07/22/19 11:55 [id number]) Orientation Orientation/Cognition Level of Alertness Alert Orientation Name,Age,Birthday,Month,Date, Year,Day of Week,Place, Situation Language Function Ability No Deficits Noted Safety Awareness Understands Safety Issues Memory Description No Deficits Noted Gross Range of Motion Upper Extremity ROM Assessment Within Functional Limits Lower Extremity ROM Assessment Bilaterally Impaired Impairments B ankle DF unable to reach neutral in seated position, but able to reach neutral in supine WFL for DF, INV, EV significant limited B big toe and digital DF and PF (approx 20 degrees in total) WFL for hip and knee AROM Strength Upper Extremity Strength Assessment Within Functional Limits Lower Extremity Strength Assessment Bilaterally Impaired Hip 5/5 Knee 5/5 Ankle 2-3+/ 5 Comments Strength Comments B ankle DF, big toe and digital DF 2/5 B ankle PF = 3+/5, B big toe and digital PF = 3/5 Coordination Assessment Gross Coordination Gross Coordination WNL Sensation Assessment Sensation Gross Sensation Right LE Impaired,Left LE Impaired Light Touch Impaired Proprioception (Position) Impaired Sensation Description Paresthesia,Numbness,Tingling Comments Sensation Comments gross limited sensation to light touch, pressure and proprioception for both ankles and feet (R worse than L and dorsal worse than plantar) Unable to identify light touch at dorsal aspect of B feet; delayed response with pressure and proprioception decreased sensation to LT and pressure for lateral calfs. noticeable pain to B calf squeeze (R worse than L) LE reflexes are intact. Muscle Tone Muscle Tone WNL Yes Other Assessments Other Other Assessments Significant varicose veins on L calfs. M6 PT-IP Treatment Start: 07/22/19 08:24 Freq: NEEDED Status: Active Protocol: Document 07/22/19 09:45 (Rec: 07/22/19 11:55 [email or web address]) Physical Therapy Treatment Education Education Provided Precautions,Weight Bearing Status,Post-Op Packet,Safety Other Treatments Other Treatment Performed Education provided on self monitoring on BP and glucose level. Dis possible complication for uncontroll glucose level and neuropathy ( wounds, ulcer, balance...etc) M7 PT-IP Assessment and Plan Start: 07/22/19 08:24 Freq: NEEDED Status: Active Protocol: Document 07/22/19 09:45 (Rec: 07/22/19 11:55 [email or web address]) PT Summary Assessment and Plan Potential Rehabilitation Potential Good Status of Condition at Evaluation Evolving Summary Impairments Pain,ROM,Strength,Balance, Sensation,Tone,Bed Mobility, Transfers,Gait,Activity Tolerance Assessment Summary Pt is 43 yo male admitted to s/p GLF with acute neuropathy (BLE), JOSE, uncontrolled type II DM. Pt's glucose level at 47x at admission but went down to 255 this cookie breaker. Per EMR, Was informed to consider [place]' syndrome if his weakness progresses to upper limbs next couple of days. Upon assessment, Pt reports he is able to DF his ankle with improved sensation to touch and pressure upon assessment. There;s noticeable gross limited sensation to light touch, pressure and proprioception for both ankles and feet (R worse than L and dorsal worse than plantar aspect); He is unable to identify light touch at dorsal aspect of B feet; delayed response with pressure and proprioception; decreased sensation to LT and pressure for lateral calfs. However, there's no distinct difference between dermatomes and LE reflexes are both intact. There's noticeable pain to B calf squeeze (R worse than L). Pt's B ankle DF unable to reach neutral in seated position, but able to reach neutral in supine. He has WFL for DF, INV, EV but significant limited B big toe and digital DF and PF (approx 20 degrees in total); WFL for hip and knee AROM. B ankle DF, big toe and digital DF 2/5; B ankle PF = 3+/5, B big toe and digital PF = 3/5. Pt was able to amb and climb stair with FWW and CGA. He is using high steppage gait pattern to clear B feet and c/ o increased tingling and numbness towards the end of session. Dr. Doll attened the last 15 mins of session for further evaluation to rule out possible neural viruses and GBS. She stated pt might suffer from acute neurpathy induced by acute glucose spike but she will order further nerve conduction test on LE. Will also order ortho brace DF assist later to assist pt's mobility. Pt is expected to be d/c home once he is medically stable. Goals Bed Mobility Goal Independent Transfer Goal Independent,Cane,Front Wheeled Walker Gait Goal Independent,Cane,Front Wheel Walker Gait Distance 300 Other Goals climb 3 steps with B rail independently Days to Meet Goals 5 Frequency of Treatment Frequency Of Treatment Once a Day Treatment Plan Physical Therapy Treatment Plan Bed Mobility Training,Transfer Training,Gait Training, Therapeutic Exercise,Balance Retraining,Post Op Education, Discharge Planning,Hot or Cold Pack,Neuromuscular Re-ed Other Recommendations and Next Treatment check ortho order Focus check VSS mobility as richard, gait training ankle strengthening (DF) stair climbing Recommendations To Nursing Amount of Assist Needed 1 Person Assist Discharge Recommendations PT Discharge Recommendations Home Equipment Needed for Home Before FWW if needed upon DC Discharge
[2019-07-22 12:00] VITALS: BP 163/110; PULSE 75; RESP 18; TEMP 36.8; O2SAT 99
--- NOTE | 2019-07-22 12:04 | PT.IIE ---
Surgical History (Last Updated 07/21/19 @ 22:34 by TOY Henry) History of toe surgery (Acute) Medical History (Last Updated 07/21/19 @ 22:27 by TOY Henry) Alcohol dependence (Inactive) Current every day smoker (Acute) Diabetes type 2, controlled (Acute) Hyperlipidemia (Inactive) Hypertension (Acute) Numbness in feet (Inactive) Pancreatitis (Acute) Physical Therapy Inpatient Evaluation/Re-Eval M1 PT/OT-IP Prior Functional Status Start: 07/22/19 08:24 Freq: NEEDED Status: Active Protocol: Document 07/22/19 09:45 (Rec: 07/22/19 11:55 [email or web address]) Medical Review Prior Functional Status Medical History Reviewed Yes Communication able to make needs known. no deficits noted Mobility and Gait Pt was independent for all mobility without AD. 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 Pt denies any ongoing/ progressive weakness on LE/UE except numbness on B feet. Activities of Daily Living and IADL's independent for all ADLs and IADLs without AD. Prior Functional Level (Other details) Pt reports he has poor management with his sugar level and his glucose level often stays at >200 Social History Household Members none Living Arrangements RV Number of Floors (Floors) One Floor Number of Stairs To Enter/Railing? 3 LAMONT with B rails. 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 Oh Clemente is a 43-year-old male who is single and lives in a travel trailer. He endorses family history of his father being in good health and his mother having diabetes he has 2 older and 2 younger brothers who via describes as in good health with no known medical problems . He has a 23-year-old daughter who is in good health . Patient is a current pack-a- day smoker with a 25 pack-year history of smoking and every day drinker with 2 doubles after work daily with more weekends with history significant for type 2 diabetes with peripheral neuropathy, hypertension, hyperlipidemia, alcohol dependence, recurrent alcoholic pancreatitis and current smoker M2 PT-IP Current Condition Start: 07/22/19 08:24 Freq: NEEDED Status: Active Protocol: Document 07/22/19 09:45 (Rec: 07/22/19 11:55 [email or web address]) Physical Therapy Current Condition Current Condition Evaluation Date 07/22/19 Treatment Diagnosis GLF, acute neuropathy (BLE), JOSE, uncontrolled type II DM Onset Date 07/21/19 Weight Bearing Status Weight Bearing Status Full Weight Bearing M3 PT-IP Subjective Start: 07/22/19 08:24 Freq: NEEDED Status: Active Protocol: Document 07/22/19 09:45 HH (Rec: 07/22/19 11:55 [email or web address]) Subjective Physical Therapy Visit Type Type Initial Evaluation Visit Start Time 09:45 Visit Stop Time 10:30 Total Visit Minutes 45 Notes Pt's glucose level at 255 this early am. X-ray, CT scan and MRI did not show significant hernition of intervertebral discs but mild degerative joint changes at L5-S1. Dr. Doll attended last 15 mins of IE for further evaluation. Number of CONSTRUCTION CONTROLLER Visits 0 Physical Therapy Visit Comments Patient Comments I could feel my feet and move my feet a little bit more today. Patient Goals To return home and cont his work Therapy Pain Assessment Pain Present Pain Present Denied Pain M4 PT-IP Mobility and Gait Start: 07/22/19 08:24 Freq: NEEDED Status: Active Protocol: Document 07/22/19 09:45 HH (Rec: 07/22/19 11:55 [email or web address]) PT-Bed Mobility Assessment Rolling Type of Rolling Roll to Left Level of Assist Independent Supine to Sit Supine to Sit Independent Sit to Supine Sit to Supine Independent Scooting Scooting to Edge of Bed Independent PT-Transfer Assessment Sit to and From Stand Sit to and from Stand Contact Guard Assistance Equipment Transfer Assistive Device Bed Rail,Front Wheeled Walker Orthotic/Prosthetic Devices or Brace: No Transfers Transfer Destination Bed Transfer Technique amb with FWW Transfer Ability Level of Assist Contact Guard Assistance Comments Mobility Comments Pt was in bed upon assessment. BP at 154/85 HR 86. He was able to complete scooting and supine to sit independently. After physical and neurological assessement in seated position, pt was able to stand up with CGA and FWW. C/O weakness of B feet. He then amb half of the AC unit and returned to bed with CGA and back to supine independently. BP at 159/84 HR 84 after session and call light within reach. Gait Assessment Gait Gait Assistance Required: Contact Guard Assist Distance (Feet) 200 Able to Maintain Weight Bearing Status Yes During Gait Assistive Devices Assistive Device Gait Belt,Front Wheeled Walker Orthotic/Prosthetic Devices or Brace: No Gait Deviations General Gait Pattern Decreased Stride Length, Decreased Feet Clearance Factors Limiting Gait Function Factors Limiting Gait Function Decreased Activity Tolerance, Decreased Strength,Limited Range of Motion,Pain,Poor Balance Comments Gait Comments Pt was able to amb for half of the AC unit with FWW and CGA. Pt demonstrated B foot drop who has difficulty to DF pass neutral (0 degrees). Pt used B steppage gait with increased B hip flexion and knee flexion to clear both feet during swing phase, along wtih foot slap for initial contact. Pt reports he does not feel safe to amb without FWW at this point. He also c/o increased tingling and numbness at R foot towards the end of gait training. Stair Climbing Assessment Evaluation Level of Assist On Stairs Contact Guard Assistance Devices Stair Climbing Assistive Devices Left Railing,Right Railing Technique/Endurance Stair Climbing Direction Ascend and Descend Stair Climbing Technique Step Over Step,Step to Step Number of Steps Climbed 3 Query Text: Stair Climbing Set # Repetitions (reps) 1 Comments Stair Climbing Comments Pt uses step over pattern with high steppage pattern for feet clearance for ascend. But he then uses step to pattern for descent and increased WB through UEs on handles. Pt c/o difficulty with eccentric control of B ankles and felt unsteady at this point. PT-Balance Assessment Sitting Balance and Reactions Static Sitting Balance Ability Normal Dynamic Sitting Balance Ability Good Standing Balance and Reactions Static Standing Balance Ability Good Dynamic Standing Balance Ability Good Device Used FwW M5 PT-IP Objective Assessments Start: 07/22/19 08:24 Freq: NEEDED Status: Active Protocol: Document 07/22/19 09:45 (Rec: 07/22/19 11:55 [email or web address]) Orientation Orientation/Cognition Level of Alertness Alert Orientation Name,Age,Birthday,Month,Date, Year,Day of Week,Place, Situation Language Function Ability No Deficits Noted Safety Awareness Understands Safety Issues Memory Description No Deficits Noted Gross Range of Motion Upper Extremity ROM Assessment Within Functional Limits Lower Extremity ROM Assessment Bilaterally Impaired Impairments B ankle DF unable to reach neutral in seated position, but able to reach neutral in supine WFL for DF, INV, EV significant limited B big toe and digital DF and PF (approx 20 degrees in total) WFL for hip and knee AROM Strength Upper Extremity Strength Assessment Within Functional Limits Lower Extremity Strength Assessment Bilaterally Impaired Hip 5/5 Knee 5/5 Ankle 2-3+/ 5 Comments Strength Comments B ankle DF, big toe and digital DF 2/5 B ankle PF = 3+/5, B big toe and digital PF = 3/5 Coordination Assessment Gross Coordination Gross Coordination WNL Sensation Assessment Sensation Gross Sensation Right LE Impaired,Left LE Impaired Light Touch Impaired Proprioception (Position) Impaired Sensation Description Paresthesia,Numbness,Tingling Comments Sensation Comments gross limited sensation to light touch, pressure and proprioception for both ankles and feet (R worse than L and dorsal worse than plantar) Unable to identify light touch at dorsal aspect of B feet; delayed response with pressure and proprioception decreased sensation to LT and pressure for lateral calfs. noticeable pain to B calf squeeze (R worse than L) LE reflexes are intact. Muscle Tone Muscle Tone WNL Yes Other Assessments Other Other Assessments Significant varicose veins on L calfs. M6 PT-IP Treatment Start: 07/22/19 08:24 Freq: NEEDED Status: Active Protocol: Document 07/22/19 09:45 (Rec: 07/22/19 11:55 [email or web address]) Physical Therapy Treatment Education Education Provided Precautions,Weight Bearing Status,Post-Op Packet,Safety Other Treatments Other Treatment Performed Education provided on self monitoring on BP and glucose level. Dis possible complication for uncontroll glucose level and neuropathy ( wounds, ulcer, balance...etc) M7 PT-IP Assessment and Plan Start: 07/22/19 08:24 Freq: NEEDED Status: Active Protocol: Document 07/22/19 09:45 (Rec: 07/22/19 11:55 [email or web address]) PT Summary Assessment and Plan Potential Rehabilitation Potential Good Status of Condition at Evaluation Evolving Summary Impairments Pain,ROM,Strength,Balance, Sensation,Tone,Bed Mobility, Transfers,Gait,Activity Tolerance Assessment Summary Pt is 43 yo male admitted to s/p GLF with acute neuropathy (BLE), JOES, uncontrolled type II DM. 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 Per EMR, Was informed to consider [place]' syndrome if his weakness progresses to upper limbs next couple of days. Upon assessment, Pt reports he is able to DF his ankle with improved sensation to touch and pressure upon assessment. There;s noticeable gross limited sensation to light touch, pressure and proprioception for both ankles and feet (R worse than L and dorsal worse than plantar aspect); He is unable to identify light touch at dorsal aspect of B feet; delayed response with pressure and proprioception; decreased sensation to LT and pressure for lateral calfs. However, there's no distinct difference between dermatomes and LE reflexes are both intact. There's noticeable pain to B calf squeeze (R worse than L). Pt's B ankle DF unable to reach neutral in seated position, but able to reach neutral in supine. He has WFL for DF, INV, EV but significant limited B big toe and digital DF and PF (approx 20 degrees in total); WFL for hip and knee AROM. B ankle DF, big toe and digital DF 2/5; B ankle PF = 3+/5, B big toe and digital PF = 3/5. Pt was able to amb and climb stair with FWW and CGA. He is using high steppage gait pattern to clear B feet and c/ o increased tingling and numbness towards the end of session. Dr. Doll attened the last 15 mins of session for further evaluation to rule out possible neural viruses and GBS. She stated pt might suffer from acute neurpathy induced by acute glucose spike but she will order further nerve conduction test on LE. Will also order ortho brace DF assist later to assist pt's mobility. Pt is expected to be d/c home with outpatient PT once he is medically stable. 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 Goals Bed Mobility Goal Independent Transfer Goal Independent,Cane,Front Wheeled Walker Gait Goal Independent,Cane,Front Wheel Walker Gait Distance 300 Other Goals climb 3 steps with B rail independently Days to Meet Goals 5 Frequency of Treatment Frequency Of Treatment Once a Day Treatment Plan Physical Therapy Treatment Plan Bed Mobility Training,Transfer Training,Gait Training, Therapeutic Exercise,Balance Retraining,Post Op Education, Discharge Planning,Hot or Cold Pack,Neuromuscular Re-ed Other Recommendations and Next Treatment check ortho order Focus check VSS mobility as richard, gait training ankle strengthening (DF) stair climbing Recommendations To Nursing Amount of Assist Needed 1 Person Assist Discharge Recommendations PT Discharge Recommendations Home,Outpatient PT Equipment Needed for Home Before FWW if needed upon DC Discharge
[2019-07-22 12:27] VITALS: BMI 26.0
--- NOTE | 2019-07-22 12:38 | DIET.PN ---
Dietary Progress Note Assessment: 43y M admitted for foot drop neuropathy upon waking after excessive etoh intake on CELI. Referred to nutrition for poorly managed DM2. Pt dx c DM2 several years ago in [place]. Went through DM education, has managed well in past per pt, but recently not been managing r/t apathy. Pt takes 22U lantis every morning, no correctional insulin, was on 500mg Metformin bid but ran out several months ago so no current use. Pt experiencing gastroparesis so does not eat breakfast and usually little lunch. Has two double vodka sodas after work and eats dinner. Sx include regurgitation and burping, dyspepsia for several hours after a meal. Takes prilosec daily. Pt not checking BG, is experiencing excessive thirst and urination. On CELI pt did not eat dinner and drank probably at least 8 vodka sodas, went to bed after ball drop and awoke at 3am c foot drop sx, called friend who took him to ER where etoh was 322, BG was 475. HT: 190.5cm WT: 94.5kg UBW: 95kg BMI: 26.0 Labs: admit BG 475 H, BP admit 69/41 L, etoh admit 322 H, A1c 12.3 H MNA: 14 Twin: 21 Nutrition Diagnosis: altered nutrition related labs (glucose) r/t poor control of DM2 aeb A1c 12.3, pt admits to etoh use, pt does not check BG regularly, pt ran out of metformin several months ago so stopped taking it, pt experiencing sx of gastroparesis, peripheral neuropathy, polydypsia, polyuria, and fatigue. Interventions: 1. Discussed DM2 in terms of pt's current sx (gastroparesis, peripheral neuropathy, polydypsia, polyuria, fatigue). 2. Discussed barriers to good management of chronic disease (DM2). Pt experiencing apathy, ineffective communication c professional to manage medications, recent relocation to area living in travel trailer. 3. Discussed potential solutions to barriers in order to improve or resolve current sx. Initiate care c practitioner of trust, increase motivation to reduce current sx, modifying major holes in self care (carb counting, medication timing, reduced etoh intake). 4. Discussed definition of moderate etoh use (2 eq's/d no more than 8 in one week) and how excessive consumption affects DM. Diet Order:CCD EER: 2400kcal, 95g PRO (1g/kg), 2.8L fluids Monitoring/Evaluations: BG trends, POs, additional DM ed, consider referring to [facility] c Susana Ureña RD CDE.
--- NOTE | 2019-07-22 12:52 | P.PN_ITS ---
Subjective Subjective Date Patient Seen: 07/22/19 Time Patient Seen: 10:00 Interval history: Mr. Oh Clemente is a 43-year-old male with history significant for type 2 diabetes with peripheral neuropathy, hypertension, hyperlipidemia, alcohol dependence, recurrent alcoholic pancreatitis and current smoker who is seen today for follow-up after being admitted for bilateral footdrop, hyperglycemia, and JOSE. He reports he is able to somewhat dorsiflex his foot today, but still not much at all. This, he reports, as starting suddenly yesterday. His MRI did show some mild impingement, however he was seen by Orthopedic surgery today and this impingement is not related to his bilateral symptoms. He further complains feeling full very quickly and some nausea which relieves after meals. Denies any recent fevers or chills. He has had no hematuria, no cough, and no hematemesis or hemoptysis. He denies any previous shakes or agitation when not drinking alcohol, and he denies ever going into alcohol withdrawal. He reports compliance with his insulin and chronic medications, however he does not check his blood sugar at home. Extensive discussions today were done regarding complications of diabetes, including how his elevated glucose can lead to all of his symptoms that he is experiencing. He did not seemingly absorb much of this as he seems surprised when the dietitian spoke with him as well regarding these matters. Exam Vital Signs (past 8 hours): - 07/22/19 08:00 07/22/19 12:00 Temperature 98.4 F 98.3 F Pulse Rate 87 75 Respiratory Rate 18 18 Blood Pressure 157/106 H 163/110 H Pulse Oximetry 99 99 Oxygen Delivery Method Room Air Oxygen Flow Rate 0 Narrative Exam Narrative: GENERAL APPEARANCE: Well developed, well nourished, in no acute distress. SKIN: Inspection of the skin reveals no rashes, ulcerations or petechiae. HEENT: The sclerae were anicteric and conjunctivae were pink and moist. Extraocular movements were intact and pupils were equal, round with normal accommodation. External inspection of the ears and nose showed no scars, l esions, or masses. Lips, teeth, and gums showed normal mucosa. The oral mucosa, hard and soft palate, tongue and posterior pharynx were unremarkable. NECK: Supple and symmetric. There was no thyroid enlargement, and no tenderness, or masses were felt. CHEST: Normal AP diameter and normal contour without any kyphoscoliosis. LUNGS: Auscultation of the lungs revealed no wheezes, rhonchi, or rales. CARDIOVASCULAR: There was a regular rate and rhythm without any murmurs, gallops, rubs. Peripheral pulses were 2+ and symmetric. ABDOMEN: Soft and nontender with normal bowel sounds. No ascites was noted. MUSCULOSKELETAL: There was no tenderness or effusions noted. Muscle strength and tone were normal. EXTREMITIES: No cyanosis, clubbing or edema. NEUROLOGIC: Alert and oriented x 3. Normal affect. Bilateral foot drop, unable to dorsiflex bilaterally at the ankles. Plantar flexion is +5/5, and rest of lower extremity is +5/5 bilaterally. He has mildly decreased sensation to light touch bilaterally in his lower extremities as well. Objective Labs Result Diagrams: 07/22/19 05:13 07/22/19 05:13 Labs: Laboratory Results - last 24 hr 07/21/19 07/21/19 07/21/19 14:13 14:13 14:13 WBC 9.2 RBC 4.21 L Hgb 14.0 Hct 40.1 L MCV 95.1 MCH 33.2 MCHC 34.9 RDW 13.5 Plt Count 131 L Neut % (Auto) 41.2 L Lymph % (Auto) 48.5 H [place] % (Auto) 8.1 Eos % (Auto) 1.8 L Baso % (Auto) 0.4 Neut # (Auto) 3800 Lymph # (Auto) 4500 [place] # (Auto) 700 Eos # (Auto) 200 Baso # (Auto) 0 Sodium 131 L Potassium 3.9 Chloride 83 L Carbon Dioxide 25 BUN 39 H Creatinine 2.50 H Estimated GFR 28.1 L BUN/Creatinine Ratio 15.6 Glucose 475 H Hemoglobin A1c Calcium 9.1 Phosphorus Magnesium Total Bilirubin 0.4 AST 30 ALT 12 Alkaline Phosphatase 121 Total Protein 7.2 Albumin 4.3 Globulin 2.9 Albumin/Globulin Ratio 1.5 Lipase 218 Vitamin B12 Urine Color Urine Appearance Urine pH Ur Specific [place] Urine Protein Urine Glucose (UA) Urine Ketones Urine Occult Blood Urine Nitrate Urine Bilirubin Urine Urobilinogen Ur Leukocyte Esterase Urine RBC Urine WBC Urine Bacteria Ur Culture Indicated? U Opiates 300ng/mL cut Ur Oxycodone Screen Urine Methadone Screen Ur Barbiturates Screen U Tricyclic Antidepress Ur Phencyclidine Scrn Ur Amphetamines Screen U Methamphetamines Scrn Ur MDMA Scrn (Ecstasy) U Benzodiazepines Scrn Urine Cocaine Screen U Marijuana (THC) Screen Ethyl Alcohol 322 H 07/21/19 07/21/19 07/21/19 14:27 14:27 16:03 WBC RBC Hgb Hct MCV MCH MCHC RDW Plt Count Neut % (Auto) Lymph % (Auto) [place] % (Auto) Eos % (Auto) Baso % (Auto) Neut # (Auto) Lymph # (Auto) [place] # (Auto) Eos # (Auto) Baso # (Auto) Sodium Potassium Chloride Carbon Dioxide BUN Creatinine Estimated GFR BUN/Creatinine Ratio Glucose Hemoglobin A1c Calcium Phosphorus 5.1 H Magnesium 2.4 H Total Bilirubin AST ALT Alkaline Phosphatase Total Protein Albumin Globulin Albumin/Globulin Ratio Lipase Vitamin B12 803 Urine Color Yellow Urine Appearance Clear Urine pH 5.0 Ur Specific [place] <=1.005 Urine Protein Trace H Urine Glucose (UA) 2+ H Urine Ketones Negative Urine Occult Blood Trace-lysed Urine Nitrate Negative Urine Bilirubin Negative Urine Urobilinogen 0.2 Ur Leukocyte Esterase Negative Urine RBC None seen Urine WBC None seen Urine Bacteria None seen Ur Culture Indicated? Cult not indicated U Opiates 300ng/mL cut Ur Oxycodone Screen Urine Methadone Screen Ur Barbiturates Screen U Tricyclic Antidepress Ur Phencyclidine Scrn Ur Amphetamines Screen U Methamphetamines Scrn Ur MDMA Scrn (Ecstasy) U Benzodiazepines Scrn Urine Cocaine Screen U Marijuana (THC) Screen Ethyl Alcohol 07/21/19 07/21/19 07/21/19 16:03 23:01 23:01 WBC RBC Hgb Hct MCV MCH MCHC RDW Plt Count Neut % (Auto) Lymph % (Auto) [place] % (Auto) Eos % (Auto) Baso % (Auto) Neut # (Auto) Lymph # (Auto) [place] # (Auto) Eos # (Auto) Baso # (Auto) Sodium 130 L Potassium 3.8 Chloride 89 L Carbon Dioxide 28 BUN 35 H Creatinine 1.90 H Estimated GFR 38.5 L BUN/Creatinine Ratio 18.4 Glucose 440 H Hemoglobin A1c Calcium 8.7 Phosphorus 3.6 D Magnesium 2.7 H Total Bilirubin AST ALT Alkaline Phosphatase Total Protein Albumin Globulin Albumin/Globulin Ratio Lipase Vitamin B12 Urine Color Urine Appearance Urine pH Ur Specific [place] Urine Protein Urine Glucose (UA) Urine Ketones Urine Occult Blood Urine Nitrate Urine Bilirubin Urine Urobilinogen Ur Leukocyte Esterase Urine RBC Urine WBC Urine Bacteria Ur Culture Indicated? U Opiates 300ng/mL cut Negative Ur Oxycodone Screen Negative Urine Methadone Screen Negative Ur Barbiturates Screen Negative U Tricyclic Antidepress Negative Ur Phencyclidine Scrn Negative Ur Amphetamines Screen Negative U Methamphetamines Scrn Negative Ur MDMA Scrn (Ecstasy) Negative U Benzodiazepines Scrn Negative Urine Cocaine Screen Negative U Marijuana (THC) Screen Negative Ethyl Alcohol 07/22/19 07/22/19 07/22/19 05:13 05:13 05:13 WBC 3.9 L D RBC 3.75 L Hgb 12.6 L Hct 35.3 L MCV 94.2 MCH 33.5 MCHC 35.5 RDW 13.3 Plt Count 62 L Neut % (Auto) 40.1 L Lymph % (Auto) 47.9 H [place] % (Auto) 9.1 Eos % (Auto) 2.3 Baso % (Auto) 0.6 Neut # (Auto) 1600 Lymph # (Auto) 1900 [place] # (Auto) 400 Eos # (Auto) 100 Baso # (Auto) 0 Sodium 133 L Potassium 4.1 Chloride 94 L Carbon Dioxide 27 BUN 36 H Creatinine 1.40 H Estimated GFR 54.8 L BUN/Creatinine Ratio 25.7 H Glucose 255 H D Hemoglobin A1c 12.3 H Calcium 8.8 Phosphorus Magnesium Total Bilirubin AST ALT Alkaline Phosphatase Total Protein Albumin Globulin Albumin/Globulin Ratio Lipase Vitamin B12 Urine Color Urine Appearance Urine pH Ur Specific [place] Urine Protein Urine Glucose (UA) Urine Ketones Urine Occult Blood Urine Nitrate Urine Bilirubin Urine Urobilinogen Ur Leukocyte Esterase Urine RBC Urine WBC Urine Bacteria Ur Culture Indicated? U Opiates 300ng/mL cut Ur Oxycodone Screen Urine Methadone Screen Ur Barbiturates Screen U Tricyclic Antidepress Ur Phencyclidine Scrn Ur Amphetamines Screen U Methamphetamines Scrn Ur MDMA Scrn (Ecstasy) U Benzodiazepines Scrn Urine Cocaine Screen U Marijuana (THC) Screen Ethyl Alcohol Assessment & Plan Assessment & Plan narrative: This is a 43-year-old male patient who presents to the ER with an acute loss of sensation to bilateral feet superimposed on prior lateral neuropathy with associated inability to dorsiflex either foot. The patient has had no history of trauma or injury was normal ambulation yesterday as difficulty walking today resulting in a nontraumatic ground level fall landing onto the question of a couch. All of his symptoms can be related to uncontrolled diabetes at this time, including gastroparesis, polyneuropathy, and JOSE. 1. Acute polyneuropathy neuropathy with motor deficit bilateral lower extremities, present on admission, active -the patient was ambulatory without difficulty yesterday, woke today with increased paresthesias overlying pre-existing diabetic neuropathy. -patient attempted to ambulate and was unable to grape picker his feet causing a nontraumatic ground level fall. No complaints of back pain and no pain with straight leg raise. -no history of spinal trauma or complaints of back pain, no central lesion, cranial nerves intact. Blood sugar is elevated at 475 may exacerbate neuropathy. -MRI findings: Mild central disc extrusions are seen at L4-L5 and L5-S1, Mild compression can be seen upon the exiting right L4 nerve root and upon both exiting L5 nerve roots. -B12 level is found to be 803, elevated phosphate at 5.1 calcium is within normal range 9.1. -will correct electrolyte and blood sugar imbalances. -Dr. Doll, orthopedics has agreed to consult and we appreciate her evaluation recommendations. Discussed with her today, and patient will need special orthotics for his footdrop, PT and OT, and will need to follow-up with the neurologist as an outpatient for possible EMG. -PT and OT to evaluate treat 2. Diabetes mellitus type 2, insulin-dependent, uncontrolled, present on admission, active -possibly with HHS on admission versus severe hyperglycemia and dehydration. His blood sugars are improved today but still remained elevat ed this morning. -blood sugars 475 on admission to the emergency department. Patient without Kussmaul's respirations and has no ketones in his urine. -serum potassium is 3.9, magnesium is 2.4 and patient has elevated phosphate at 5.1. -medium carbohydrate diet. -increased Lantus to 30 units daily starting tonight. His morning glucose was around 230. -[facility] blood glucose checks and low-dose correctional scale insulin. -continue to follow chemistries. 3. Acute kidney injury, present on admission, active, improving. -patient with a BUN of 39 and creatinine 2.5 on admission. Baseline creatinine from labs in October is 0.5-1.0. Creatinine has improved today to 1.4. -injury related to acute dehydration as well as hypotension, this is in the setting severe hyperglycemia with possible HHS. His kidney function has improved with fluids. -patient denies flank pain or difficulty voiding. MRI notes incidental finding of hydronephrosis as well as hydroureter without obstruction. Renal ultrasound today showed normal kidneys without evidence of hydronephrosis. -patient does not manifest hyperkalemia having potassium level of 3.9 but does have elevated phosphate at 5.1 which may be participatory in patient's neurological symptoms. -urinalysis is positive for glucose, trace protein and negative for infection. Culture not indicated. -will discontinue fluids today. -tamsulosin has been started, will continue as an outpatient. -will monitor renal function on chemistries. -avoid renal toxic agents and renally dose medications as needed. 4. Acute hyponatremia, present on admission, active, improving -Likely secondary hyperglycemia and dehydration from his hyperglycemia. 5. Thrombocytopenia, present on admission, active -likely secondary to chronic alcohol use. Will continue to monitor. 6. Alcohol dependence, chronic, present on admission. Stable. -patient with ETOH level of 322 on admission to the emergency department. -patient enters is drinking 2 drinks daily after work described as doubles and more weekends. -prior history of recurrent alcoholic pancreatitis not evidence at this time, lipase is 218. -patient received a banana bag in the emergency department.. -ordered folate and thiamine p.o. daily. -No evidence of alcohol withdrawal, no indication to initiate CIWA protocol. 7. Hypertension, chronic. -admission blood pressure was 69/41 with heart rate of 86 improved to normal tensive with 2 L of IV fluid. He is now hypertensive. -will discontinue IV fluids. -can resume antihypertensive medications 8. Hyperlipidemia, chronic, present on admission. Stable. -Continued atorvastatin 80 mg daily at bedtime. 9. Gastroparesis, present on admission -patient with uncontrolled diabetes and gets extremely nauseous when eating, especially large meals. -will start Reglan 5 mg before meals. VTE prophylaxis: Bilateral SCDs, Lovenox Diet: Medium carbohydrate Dispo: Anticipate discharge home in the next 1-2 days. Currently pending PT and OT evaluations. Quality VTE Deep Vein Thrombosis/Pulmonary Embolism Present on Admission: No
[2019-07-22 15:29] VITALS: BP 165/100; PULSE 70; RESP 16; TEMP 36.8; O2SAT 99
--- NOTE | 2019-07-22 16:37 | PM.CN ---
History of Present Illness Consult details Date Patient Seen: 07/22/19 Time Patient Seen: 10:15 Chief complaint: FOOT DROP BOTH Reason for consult: Significant weakness in bilateral lower extremities Requesting provider: Alexander Goldman Narrative: This is a 43-year-old gentleman who was seen yesterday morning in the emergency room with a chief complaint of difficulty walking and bilateral lower extremity numbness and weakness. He has a known history of diabetes with some component of peripheral neuropathy but knows that he is not had previous significant weakness in bilateral lower extremities. He woke up on with significant weakness in bilateral lower extremities. He said that he slept in his bed in a fairly normal position and but had done some celebrating for Kerry. He notes difficulty walking secondary to bilateral lower extremity numbness and weakness. He was evaluated in the emergency room noted to have a blood sugar of 400 with some component of acute kidney injury as well as multiple medical problems. 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 He has been an insulin-dependent diabetic for years and notes that he does not tested sugars at home. He does use insulin. He has recorded sugars to the 300s at home. Meds Home Medications and Allergies Home Medications Medication Instructions Recorded Confirmed Type Lantus U-100 Insulin 22 units SUBCUT DAILY 11/10/18 07/21/19 History [place]-3 1,000 mg PO DAILY 11/10/18 07/21/19 History aspirin 81 mg PO DAILY 11/10/18 07/21/19 History atorvastatin 80 mg PO BEDTIME 11/10/18 07/21/19 History lisinopril-hydrochlorothiazide 1 tab PO DAILY 11/10/18 07/21/19 History metformin 1,000 mg PO BID 11/10/18 07/21/19 History Allergies Allergy/AdvReac Type Severity Reaction Status Date / Time No Known Drug Allergies Allergy Verified 07/21/19 13:53 Review of Systems Review of Systems Narrative: Denies any recent exposure to abnormal viruses, does not note significant low-back midthoracic or neck pain, he does note some numbness in the ulnar digits of bilateral upper extremities which is intermittent and relatively stable. He denies any new recent change with his bowel or bladder. He does note persistent ongoing numbness in the bilateral lower extremities and he says that he has weakness to the extent that he cannot run but did not have difficulty going up and down steps or ambulating previously. He denies any recent foreign travel or other change in his normal activities. He does admit to heavy drinking. Exam Vital Signs (past 8 hours): - 07/22/19 12:00 07/22/19 15:29 Temperature 98.3 F 98.3 F Pulse Rate 75 70 Respiratory Rate 18 16 Blood Pressure 163/110 H 165/100 H Pulse Oximetry 99 99 Oxygen Delivery Method Room Air Oxygen Flow Rate 0 Narrative Exam Narrative: He is alert he is oriented he is resting comfortably in bed he has no difficulty sitting up, HEENT is benign lungs are clear cor and regular is regular rate and rhythm abdomen soft and benign his cervical spine thoracic spine and lumbar spine are all nontender, has no pain with range of motion in the hips or knees bilaterally, he has mild decreased currency examiner strength in bilateral hands without significant atrophy. He has dense with numbness in bilateral lower extremities on the dorsum of his feet there was no numbness proximal to the knee, as a negative Tinel's over his peroneal nerve bilaterally, has full range of motion of his knees bilaterally, he has fairly normal strength of active plantar flexion and toe flexion bilaterally and he can do an active straight leg raise and hip flexion bilaterally. Has significant weakness of his EHL and tibialis anterior right greater than left with the strength of 3-on the left and 1-2 on the right Objective Labs Result Diagrams: 07/22/19 05:13 07/22/19 05:13 Labs: Laboratory Results - last 24 hr 07/21/19 07/21/19 07/21/19 14:27 14:27 16:03 WBC RBC Hgb Hct MCV MCH MCHC RDW Plt Count Neut % (Auto) Lymph % (Auto) [place] % (Auto) Eos % (Auto) Baso % (Auto) Neut # (Auto) Lymph # (Auto) [place] # (Auto) Eos # (Auto) Baso # (Auto) Sodium Potassium Chloride Carbon Dioxide BUN Creatinine Estimated GFR BUN/Creatinine Ratio Glucose Hemoglobin A1c Calcium Phosphorus 5.1 H Magnesium 2.4 H Vitamin B12 803 Urine Color Yellow Urine Appearance Clear Urine pH 5.0 Ur Specific [place] <=1.005 Urine Protein Trace H Urine Glucose (UA) 2+ H Urine Ketones Negative Urine Occult Blood Trace-lysed Urine Nitrate Negative Urine Bilirubin Negative Urine Urobilinogen 0.2 Ur Leukocyte Esterase Negative Urine RBC None seen Urine WBC None seen Urine Bacteria None seen Ur Culture Indicated? Cult not indicated U Opiates 300ng/mL cut Ur Oxycodone Screen Urine Methadone Screen Ur Barbiturates Screen U Tricyclic Antidepress Ur Phencyclidine Scrn Ur Amphetamines Screen U Methamphetamines Scrn Ur MDMA Scrn (Ecstasy) U Benzodiazepines Scrn Urine Cocaine Screen U Marijuana (THC) Screen 07/21/19 07/21/19 07/21/19 16:03 23:01 23:01 WBC RBC Hgb Hct MCV MCH MCHC RDW Plt Count Neut % (Auto) Lymph % (Auto) [place] % (Auto) Eos % (Auto) Baso % (Auto) Neut # (Auto) Lymph # (Auto) [place] # (Auto) Eos # (Auto) Baso # (Auto) Sodium 130 L Potassium 3.8 Chloride 89 L Carbon Dioxide 28 BUN 35 H Creatinine 1.90 H Estimated GFR 38.5 L BUN/Creatinine Ratio 18.4 Glucose 440 H Hemoglobin A1c Calcium 8.7 Phosphorus 3.6 D Magnesium 2.7 H Vitamin B12 Urine Color Urine Appearance Urine pH Ur Specific [place] Urine Protein Urine Glucose (UA) Urine Ketones Urine Occult Blood Urine Nitrate Urine Bilirubin Urine Urobilinogen Ur Leukocyte Esterase Urine RBC Urine WBC Urine Bacteria Ur Culture Indicated? U Opiates 300ng/mL cut Negative Ur Oxycodone Screen Negative Urine Methadone Screen Negative Ur Barbiturates Screen Negative U Tricyclic Antidepress Negative Ur Phencyclidine Scrn Negative Ur Amphetamines Screen Negative U Methamphetamines Scrn Negative Ur MDMA Scrn (Ecstasy) Negative U Benzodiazepines Scrn Negative Urine Cocaine Screen Negative U Marijuana (THC) Screen Negative 07/22/19 07/22/19 07/22/19 05:13 05:13 05:13 WBC 3.9 L D RBC 3.75 L Hgb 12.6 L Hct 35.3 L MCV 94.2 MCH 33.5 MCHC 35.5 RDW 13.3 Plt Count 62 L Neut % (Auto) 40.1 L Lymph % (Auto) 47.9 H [place] % (Auto) 9.1 Eos % (Auto) 2.3 Baso % (Auto) 0.6 Neut # (Auto) 1600 Lymph # (Auto) 1900 [place] # (Auto) 400 Eos # (Auto) 100 Baso # (Auto) 0 Sodium 133 L Potassium 4.1 Chloride 94 L Carbon Dioxide 27 BUN 36 H Creatinine 1.40 H Estimated GFR 54.8 L BUN/Creatinine Ratio 25.7 H Glucose 255 H D Hemoglobin A1c 12.3 H Calcium 8.8 Phosphorus Magnesium Vitamin B12 Urine Color Urine Appearance Urine pH Ur Specific [place] Urine Protein Urine Glucose (UA) Urine Ketones Urine Occult Blood Urine Nitrate Urine Bilirubin Urine Urobilinogen Ur Leukocyte Esterase Urine RBC Urine WBC Urine Bacteria Ur Culture Indicated? U Opiates 300ng/mL cut Ur Oxycodone Screen Urine Methadone Screen Ur Barbiturates Screen U Tricyclic Antidepress Ur Phencyclidine Scrn Ur Amphetamines Screen U Methamphetamines Scrn Ur MDMA Scrn (Ecstasy) U Benzodiazepines Scrn Urine Cocaine Screen U Marijuana (THC) Screen MRI of his lumbar spine shows multiple level degenerative disc disorder at L1-2 2334 and 4 5 as well as 5 1. There is some evidence of lateral fairly mild neural impingement at L4-5 and at L5-S1 bilaterally. I do not see severe compressive pathology which would explain his acute bilateral footdrop. Assessment & Plan Assessment & Plan narrative: Impression is bilateral lower extremity numbness and weakness with an acute bilateral footdrop. Lumbar degenerative disc disorder with evidence of mild neural compression. Out of control diabetes with a hemoglobin A1c of over 12. Known peripheral neuropathy. I think his clinical exam and laboratory findings are most consistent with acute neurological symptoms likely related to extremely poor diabetic control. I've recommended that he have an evaluation by a neurologist and and EMG nerve conduction study. I am not certain but this may be possible to obtain through Dr. Sebastian Lynn. I spoke directly to physical therapy and told him that he can be weight-bearing as tolerated on bilateral lower extremities and I think he would benefit from bilateral AFOs. These had previously been available through our physical therapist. I think it's okay inappropriate to mobilize him out of bed ambulating. He is a reasonable candidate to follow up with physiatry.
[2019-07-22] MEDS: METOCLOPRAMIDE HCL 5 MG TABLET PO ×2 (18:23→21:44)
[2019-07-22 20:10] VITALS: BP 167/107; PULSE 73; RESP 20; TEMP 36.8; O2SAT 99
[2019-07-22] MEDS: ATORVASTATIN 20 MG TABLET 80 MG PO (21:44)
[2019-07-22] MEDS: TAMSULOSIN 0.4 MG CAPSULE PO (21:45)
[2019-07-22] MEDS: SODIUM CHLORIDE 0.9% FLUSH 10 ML IV (21:45)
[2019-07-23 00:37] VITALS: BP 164/104; PULSE 68; RESP 20; TEMP 37.1; O2SAT 98
[2019-07-23 05:05] VITALS: BP 161/90; PULSE 67; RESP 16; TEMP 36.9; O2SAT 100
[2019-07-23 06:37] LABS: TSH w/ Reflex to FT4 1.44 uIU/mL (0.47-4.68)
[2019-07-23] MEDS: METOCLOPRAMIDE HCL 5 MG TABLET PO ×2 (07:02→11:29)
[2019-07-23 08:05] VITALS: BP 158/98; PULSE 70; RESP 16; TEMP 36.9; O2SAT 99
[2019-07-23 08:58] LABS: Blood Urea Nitrogen 21 mg/dL (9-20); Calcium 9.5 mg/dL (8.4-10.2); Carbon Dioxide 29 mmol/L (22-32); Chloride 96 mmol/L (98-107); Estimated Glomerular Filt Rate > 60.0 mL/min (>60); Glucose 237 mg/dL (70-100); HEMOLYSIS < 15 (0-50); Sodium 135 mmol/L (137-145)
[2019-07-23] MEDS: INSULIN GLARGINE 100 UNIT/ML 3ML PEN 30 UNIT SUBCUT (09:37)
[2019-07-23] MEDS: INSULIN ASPART 100 UNIT/ML INSULN PEN SUBCUT ×2 (09:37→11:43)
[2019-07-23] MEDS: NICOTINE 21 MG PATCH TOP (09:40)
[2019-07-23] MEDS: FOLIC ACID 0.4 MG TABLET PO (09:40)
--- NOTE | 2019-07-23 09:40 | PM.PN.1 ---
Subjective Subjective Date Patient Seen: 07/23/19 Time Patient Seen: 09:41 Exam Vital Signs (past 8 hours): - 07/23/19 05:05 07/23/19 08:05 Temperature 98.4 F 98.5 F Pulse Rate 67 70 Respiratory Rate 16 16 Blood Pressure 161/90 H 158/98 H Pulse Oximetry 100 99 Oxygen Delivery Method Room Air Oxygen Flow Rate 0 Objective Labs Result Diagrams: 07/22/19 05:13 07/23/19 08:12 Labs: Laboratory Results - last 24 hr 07/23/19 07/23/19 05:33 08:12 Sodium 135 L Potassium 4.0 Chloride 96 L Carbon Dioxide 29 BUN 21 H Creatinine 1.00 Estimated GFR > 60.0 BUN/Creatinine Ratio 21.0 Glucose 237 H Calcium 9.5 TSH 1.44 Quality VTE Deep Vein Thrombosis/Pulmonary Embolism Present on Admission: No
[2019-07-23] MEDS: ASPIRIN EC 81 MG TABLET PO (09:41)
[2019-07-23] MEDS: THIAMINE 100 MG TABLET PO (09:41)
[2019-07-23] MEDS: hydroCHLOROthiazide 25 MG TABLET PO (09:41)
[2019-07-23] MEDS: SODIUM CHLORIDE 0.9% FLUSH 10 ML IV (09:41)
[2019-07-23] MEDS: MULTIVITAMIN 1 TABLET 1 TAB PO (09:41)
[2019-07-23] MEDS: LISINOPRIL 20 MG TABLET 40 MG PO (09:42)
--- NOTE | 2019-07-23 10:38 | P.DS_ITS ---
History of Present Illness History of Present Illness Date Patient Seen: 07/23/19 Time Patient Seen: 10:39 Chief complaint: FOOT DROP BOTH Narrative: As per TOY Henry: Mr. Oh Clemente is a 43-year-old male with history significant for type 2 diabetes with peripheral neuropathy, hypertension, hyperlipidemia, alcohol dependence, recurrent alcoholic pancreatitis and current smoker presents to the ER following a fall. The patient states he woke this morning with decreased sensation to his bilateral feet beyond the normal neuropathy experience associated to his diabetes. Patient states he tried ambulate and reports he could not control his feet resulting in tripping and falling onto the question of a couch. Is the patient describes no such complaints or difficulty. He denies recent injury or trauma and sustained no injury or loss of consciousness and is fall today. Patient denies any recent complaints of illness, fevers or chills, nasal congestion or sore throat. He denies chest pain or palpitations has no shortness of breath cough or wheezing. Denies abdominal pain, nausea vomiting or changes in stooling habits. He does acknowledge he has had a weak stream for the last 2-3 weeks. Upon arrival to the ER the patient is afebrile is temperature 98.6?, his heart rate of 86, hypotensive at 69/41, respirations 13 an oxygen saturation 95%. The patient underwent imaging with a CT of the head that found no acute intracranial process. He also underwent an MRI which found lumbar degenerative changes greater than expected for age with mild disc extrusion at L5 4-5 and L5-S1 and mild compression of the right L4 and bilateral L5 nerve roots. Was incidental finding hydronephrosis and hydroureter without obstruction. On laboratory analysis his white count of 9.2, hemoglobin of 14.0, hematocrit 40.1 with low platelets at 131. He is hyponatremic at 131 with a potassium of 3.9, BUN of 39 and creatinine of 2.5. He has a nonfasting glucose of 475. His total bilirubin is 0.5, AST of 30, ALT of 12 and alkaline phosphatase of 131 with an albumin of 2.9 and lipase of 218. Tox screen reveals an alcohol level of 322. Urinalysis pain which is positive for glucose, trace protein and negative for infection. The patient received 2 L of normal saline 1 being a banana bag with improvement of blood pressure to within normal range. [place] neurology was consulted with no further recommendations. Orthopedics was consulted and Dr. Doll this agrees to evaluate the patient. The patient is admitted to the medicine service for further evaluation and treatment of neuropathy hyperglycemia and acute kidney injury. Discharge Providers Provider Date of admission: 07/21/19 19:55 Discharge Date: 07/23/19 Consults: 07/21/19 20:56 Consult to Dietitian, Adult Routine Comment: Reason For Exam: Uncontrolled diabetes Consult to Discharge Planning Routine Comment: Consult to Physical Therapy Evaluate & Treat Comment: L4-5, L5-S1 disc disease, paresthesias, footdrop Physician Instructions: Evaluate and Treat 07/21/19 20:57 Consult to Occupational Therapy Evaluate & Treat Comment: L4-5, L5-S1 disc disease, paresthesias, footdrop Physician Instructions: Evaluate and treat Consult to Physician Routine Comment: Consulting Provider: Shama Doll Reason for consultation: L4-5, L5-S1 disc disease, paresthesias, footdrop Has provider been notified: Yes Discharge provider: Alexander Goldman DO Summary Hospital Course Discharge Diagnosis: 1. Acute polyneuropathy neuropathy with motor deficit bilateral lower extremities, present on admission, active 2. Diabetes mellitus type 2, insulin-dependent, uncontrolled, present on admission, active -possibly with HHS on admission versus severe hyperglycemia and dehydration 3. Acute kidney injury, present on admission, active, improving. 4. Acute hyponatremia, present on admission, active, improving 5. Thrombocytopenia, present on admission, active 6. Alcohol dependence, chronic, present on admission. Stable. 7. Hypertension, chronic. 8. Hyperlipidemia, chronic, present on admission. Stable. 9. Gastroparesis, present on admission Hospital Course: Oh Zuluaga is a 43-year-old male patient who presents to the ER with an acute loss of sensation to bilateral feet superimposed on prior lateral neuropathy with associated inability to dorsiflex either foot. The patient has had no history of trauma or injury and had normal ambulation as of a day prior t o admission. Difficulty walking on the day of admission resulted in a nontraumatic ground level fall landing onto the cushion of a couch. All of his symptoms can be related to uncontrolled diabetes at this time, including gastroparesis, polyneuropathy, and JOSE. 1. Acute polyneuropathy with sensory and motor deficit bilateral lower extremities, present on admission, active -the patient was ambulatory without difficulty on the day prior to admission, he woke up the day of admission with increased paresthesias overlying pre-existing diabetic neuropathy and inability to dorsiflex his foot. This is consistent with diabetic foot drop. 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 No complaints of back pain and no pain with straight leg raise. -no history of spinal trauma or complaints of back pain, no central lesion, cranial nerves intact. Blood sugar is elevated at 475 may exacerbate neuropathy. -MRI findings: Mild central disc extrusions are seen at L4-L5 and L5-S1, Mild compression can be seen upon the exiting right L4 nerve root and upon both exiting L5 nerve roots. -B12 level is found to be 803, elevated phosphate at 5.1. Calcium is within normal range 9.1. Phosphate level improved after IV hydration. -patient's insulin was titrated up. He'd also had run out of metformin. -Dr. Doll, orthopedics has agreed to consult and we appreciate her evaluation recommendations. Patient was fitted for bilateral AFOs. He will need outpatient evaluation by a neurologist for possible EMG, as well as outpatient physical therapy. 2. Diabetes mellitus type 2, insulin-dependent, uncontrolled, present on admission, active -possibly with HHS on admission versus severe hyperglycemia and dehydration. His blood sugars are improved today but still remained elevated this morning. His Lantus was increased to 30 units and this is when he is discharged on. He had run out of his prescription for metformin and not been taking it recently. This was also refilled for him. We recommend that he follow-up as an outpatient here for diabetic dietary classes. -blood sugars 475 on admission to the emergency department. Patient without Kussmaul's respirations and has no ketones in his urine. -increased Lantus to 30 units daily. -continue home metformin -close primary care provider follow-up 3. Acute kidney injury, present on admission, active, resolved. -patient with a BUN of 39 and creatinine 2.5 on admission. Baseline creatinine from labs in October is 0.5-1.0. Creatinine has improved on day of discharge to 1.0. -injury related to acute dehydration as well as hypotension, this is in the setting severe hyperglycemia with possible HHS on admission. His kidney function improved with fluids. -patient denies flank pain or difficulty voiding. MRI notes incidental finding of hydronephrosis as well as hydroureter without obstruction. Renal ultrasound today showed normal kidneys without evidence of hydronephrosis. He was started on Flomax and voided without difficulty. -urinalysis is positive for glucose, trace protein and negative for infection. Culture not indicated. 4. Acute hyponatremia, present on admission, active, improving -Likely secondary hyperglycemia and dehydration from his hyperglycemia. Sodium upon discharge was 135. 5. Thrombocytopenia, present on admission, active -likely secondary to chronic alcohol use. 6. Alcohol dependence, chronic, present on admission. Stable. -patient with ETOH level of 322 on admission to the emergency department. He did not manifest symptoms of withdrawal while admitted. -patient enters is drinking 2 drinks daily after work described as doubles and more weekends. -prior history of recurrent alcoholic pancreatitis not evidence at this time, lipase was 218. -patient received a banana bag in the emergency department. 7. Hypertension, chronic. -admission blood pressure was 69/41 with heart rate of 86 improved to normal tensive with 2 L of IV fluid. He then became hypertensive. His dose of lisinopril was increased to 40 mg. His regimen of lisinopril/HCTZ was changed slightly to lisinopril 20 mg / 12.5 mg of hydrochlorothiazide, 2 pills daily. From lisinopril 20 mg and hydrochlorothiazide 25 mg. 8. Hyperlipidemia, chronic, present on admission. Stable. -Continued atorvastatin 80 mg daily at bedtime. 9. Gastroparesis, present on admission -patient with uncontrolled diabetes and gets extremely nauseous when eating, especially large meals. -will start Reglan 5 mg before meals. -outpatient follow-up for possible gastric emptying study if deemed necessary Dispo: Patient was discharged home. He will need outpatient follow-up with his primary care provider, who can provide referral to neurology. He will also need outpatient physical therapy. He was ordered for bilateral AFOs with help from physical therapy. Time Spent with Patient Time spent: Greater than 30 minutes Exam Vital Signs (past 8 hours): - 07/23/19 05:05 07/23/19 08:05 Temperature 98.4 F 98.5 F Pulse Rate 67 70 Respiratory Rate 16 16 Blood Pressure 161/90 H 158/98 H Pulse Oximetry 100 99 Oxygen Delivery Method Room Air Oxygen Flow Rate 0 Narrative Exam Narrative: GENERAL APPEARANCE: Well developed, well nourished, in no acute distress. SKIN: Inspection of the skin reveals no rashes, ulcerations or petechiae. HEENT: The sclerae were anicteric and conjunctivae were pink and moist. Extraocular movements were intact and pupils were equal, round with normal accommodation. External inspection of the ears and nose showed no scars, lesions, or masses. Lips, teeth, and gums showed normal mucosa. The oral mucosa, hard and soft palate, tongue and posterior pharynx were unremarkable. NECK: Supple and symmetric. There was no thyroid enlargement, and no tenderness, or masses were felt. CHEST: Normal AP diameter and normal contour without any kyphoscoliosis. LUNGS: Auscultation of the lungs revealed no wheezes, rhonchi, or rales. CARDIOVASCULAR: There was a regular rate and rhythm without any murmurs, gallops, rubs. Peripheral pulses were 2+ and symmetric. ABDOMEN: Soft and nontender with normal bowel sounds. No ascites was noted. MUSCULOSKELETAL: There was no tenderness or effusions noted. Muscle strength and tone were normal. EXTREMITIES: No cyanosis, clubbing or edema. NEUROLOGIC: Alert and oriented x 3. Normal affect. Bilateral foot drop, unable to dorsiflex bilaterally at the ankles. Plantar flexion is +5/5, and rest of lower extremity is +5/5 bilaterally. He has mildly decreased sensation to light touch bilaterally in his lower extremities as well. Objective Labs Result Diagrams: 07/22/19 05:13 07/23/19 08:12 Labs: Laboratory Results - last 24 hr 07/23/19 07/23/19 05:33 08:12 Sodium 135 L Potassium 4.0 Chloride 96 L Carbon Dioxide 29 BUN 21 H Creatinine 1.00 Estimated GFR > 60.0 BUN/Creatinine Ratio 21.0 Glucose 237 H Calcium 9.5 TSH 1.44 Discharge Plan Discharge Plan Patient Disposition: Home Discharge comment: You were admitted to the hospital with bilateral footdrop. This is likely due to your poor control of your diabetes. Your A1c was 12.3%. Your Lantus was increased to 30 units nightly. You should follow-up with your primary care provider for further management of your diabetes. I also recommend that you see a neurologist for the footdrop and it is recommended that you obtain an EMG from our orthopedic surgeon. You also will need physical therapy as an outpatient, and you were provided with bilateral AFOs. Given your nausea, you were also started on Reglan for likely gastroparesis. You were also started on flomax for possible BPH symptoms. I also increased your dose of lisinopril given your high blood pressure here. Discharge orders & Medications Prescriptions: New Lantus Solostar U-100 Insulin 100 unit/mL (3 mL) Insulin Pen 30 unit subcut 0800 30 Days Qty: 9 RF: 0 metoclopramide HCl 5 mg Tablet 5 mg PO ACHS 30 Days Qty: 90 RF: 0 tamsulosin [Flomax] 0.4 mg Capsule 0.4 mg PO BEDTIME 30 Days Qty: 30 RF: 0 lisinopril-hydrochlorothiazide 20-12.5 mg tablet 2 tab PO DAILY 30 Days Qty: 60 RF: 0 (DME) pen needle, diabetic [Pen Needle] 31 gauge x 3/16 needle See Rx Instructions .ROUTE .MEDSUPPLY Qty: 100 RF: 0 Continued atorvastatin 80 mg Tablet 80 mg PO BEDTIME RF: 0 aspirin 81 mg Tablet,Delayed Release (Dr/Ec) 81 mg PO DAILY RF: 0 [place]-3 1,000 mg 1,000 mg PO DAILY RF: 0 metformin 1,000 mg Tablet 1,000 mg PO BID 30 Days Qty: 60 RF: 0 Discontinued Lantus U-100 Insulin 100 unit/mL Solution 22 units subcut DAILY RF: 0 lisinopril-hydrochlorothiazide 20-25 mg Tablet 1 tab PO DAILY RF: 0 Discharge Health Status Health Concerns: Uncontrolled diabetes Bilateral foot drop Gastroparesis Hypertension Diet/Activity/Treatments Diet: Diet as Tolerated and Carb-consistent/Diabetic Diet comment: Small meals, can take reglan prior to meals to help with gastroparesis. Activity: As tolerated. Visit Report/Discharge Packet Instructions: How to Take Care of Your Feet If You Have Diabetes, Complications of Type 2 Diabetes, Recommendations to Help Prevent High Blood Pressure, Learn Your Diabetic ABCs, DI for Diabetic Neuropathy, How to Prevent Falls, Diabetes and Alcohol: Caution When Mixing Quality VTE Deep Vein Thrombosis/Pulmonary Embolism Present on Admission: No
--- NOTE | 2019-07-23 11:28 | CM.DPC ---
Addendum entered by Luna Campo LPN 07/23/19 11:49: PT Christian is fitting pt now with the bilateral orthotics. He confirms that pt will NOT need a FWW at d/c. Original Note: DCP: continued: Case discussed again in Team Rounds with Dr. Goldman noting that pt would be ok for d/c to home setting today as soon as the AFOs are here. PT confirmed that these will be fitting and pt will have a session again to see how he does. OT is also seeing pt. Met now with pt. Found him up on window seat, fully dressed, his friend waiting in bedside chair to take him home once all is in place. Pt states he has just been on the phone booking a hotel room as his parents are on their way her from [place] and we will all stay at the hotel tonight and have a bit of a reunion as there is not enough room for the 3 of us at my RV. Spoke with Ember WEBB re ? need for FWW. She says PT Christian will decide after the orthotics are in place but advises FWW order be obtained in case of need/done. Pt says he is currently getting around the room ok and wonders how he will do with the orthotics but is open to trying them. He also expresses understanding re the importance of taking all of his d/c information from the hospital to Dr. Huynh so that he can begin to focus more deeply on his medical issues and avert further damage from his uncontrolled diabetes. Will follow prn until pt leaves.
--- NOTE | 2019-07-23 12:04 | PC.NURSE ---
Day shift: Pt fiitted and has special walking devises BLE's. Tolerated well. Pt also ambulated to his friends car and did well. This junior technical writer walked with Pt. Paperwork is signed and all questions answered. Pt has all personal belongings. scrips sent to Pt's pharmacy electronic.
--- NOTE | 2019-07-23 12:06 | OT.IP.TRT ---
Current Diagnoses Foot drop, left foot (07/21/19) Occupational Therapy Treatment Note M2 OT-IP Current Condition Start: 07/22/19 11:55 Freq: Status: Active Protocol: Document 07/22/19 09:20 PJM (Rec: 07/22/19 12:39 PJM [id number]) Occupational Therapy Current Condition Current Condition Evaluation Date 07/22/19 Treatment Diagnosis decr'd functional mobility due to B foot drop, sensory loss in feet Diagnosis Onset Date 07/21/19 Post Operative Precautions Other Precautions fall risk due to B foot drop M3 OT- IP Subjective and Pain Start: 07/22/19 11:55 Freq: Status: Active Protocol: Document 07/23/19 11:30 CCC (Rec: 07/23/19 12:06 [facility] [id number]) OT- Subjective Occupational Therapy Visit Type Type Administrative Note Notes Pt doing much better today and able to walk without the FWW in the room and waiting to see PT for B AFO. Pt being discharged today. NO charge. Per nursing pt already showered.
--- NOTE | 2019-07-23 12:37 | PT.IPTN ---
Current Diagnoses Foot drop, left foot (07/21/19) Muscle weakness (generalized) (07/21/19) Physical Therapy Treatment Note M2 PT-IP Current Condition Start: 07/22/19 08:24 Freq: NEEDED Status: Discharge Protocol: Document 07/22/19 09:45 HH (Rec: 07/22/19 11:55 HH [email or web address]) Physical Therapy Current Condition Current Condition Evaluation Date 07/22/19 Treatment Diagnosis GLF, acute neuropathy (BLE), JOSE, uncontrolled type II DM Onset Date 07/21/19 Weight Bearing Status Weight Bearing Status Full Weight Bearing M3 PT-IP Subjective Start: 07/22/19 08:24 Freq: NEEDED Status: Discharge Protocol: Document 07/23/19 11:35 HH (Rec: 07/23/19 12:36 HH [email or web address]) Subjective Physical Therapy Visit Type Type Treatment Note Visit Start Time 11:35 Visit Stop Time 12:00 Total Visit Minutes 25 Notes Pt's glucose level at 235 this early am. B AFOs order received. Number of OPERATIONS ADMINISTRATIVE ASSISTANT Visits 0 Physical Therapy Visit Comments Patient Comments Both of my feet are getting better and i am able to walk around withou walker. M4 PT-IP Mobility and Gait Start: 07/22/19 08:24 Freq: NEEDED Status: Discharge Protocol: Document 07/23/19 11:35 HH (Rec: 07/23/19 12:36 HH [email or web address]) Gait Assessment Gait Gait Assistance Required: Independent Distance (Feet) 400 Able to Maintain Weight Bearing Status Yes During Gait Assistive Devices Assistive Device None Orthotic/Prosthetic Devices or Brace: Yes Gait Deviations General Gait Pattern Decreased Stride Length, Decreased Feet Clearance Factors Limiting Gait Function Factors Limiting Gait Function Abnormal Tonal Influences, Decreased Strength,Limited Range of Motion Comments Gait Comments Pt just came out from bathroom upon assessment. He was able to amb with/without shoes without AD for 300 feet first. He demonstrated improved B heel strikes and decreased steppage gait but needed visual attention for feet clearance. 2nd attempt with B rigid AFO PF stopper and pt was able to amb without visual assist for feet clearance. Stair Climbing Assessment Evaluation Level of Assist On Stairs Independent Devices Stair Climbing Assistive Devices None Technique/Endurance Stair Climbing Direction Ascend and Descend Stair Climbing Technique Step Over Step Number of Steps Climbed 3 Stair Climbing Set # Repetitions (reps) 2 Comments Stair Climbing Comments Pt uses improved steppage step over pattern for first attempt but reports of unsteadiness for descend. F/b with B AFOs with imroved sagittal and lateral ankle stability, along with feet clearance. Pt reports safe descent without paying much attention. PT-Balance Assessment Sitting Balance and Reactions Static Sitting Balance Ability Normal Dynamic Sitting Balance Ability Normal Standing Balance and Reactions Static Standing Balance Ability Normal Dynamic Standing Balance Ability Normal Device Used none M5 PT-IP Objective Assessments Start: 07/22/19 08:24 Freq: NEEDED Status: Discharge Protocol: Document 07/22/19 09:45 HH (Rec: 07/22/19 11:55 HH [email or web address]) Orientation Orientation/Cognition Level of Alertness Alert Orientation Name,Age,Birthday,Month,Date, Year,Day of Week,Place, Situation Language Function Ability No Deficits Noted Safety Awareness Understands Safety Issues Memory Description No Deficits Noted Gross Range of Motion Upper Extremity ROM Assessment Within Functional Limits Lower Extremity ROM Assessment Bilaterally Impaired Impairments B ankle DF unable to reach neutral in seated position, but able to reach neutral in supine WFL for DF, INV, EV significant limited B big toe and digital DF and PF (approx 20 degrees in total) WFL for hip and knee AROM Strength Upper Extremity Strength Assessment Within Functional Limits Lower Extremity Strength Assessment Bilaterally Impaired Hip 5/5 Knee 5/5 Ankle 2-3+/ 5 Comments Strength Comments B ankle DF, big toe and digital DF 2/5 B ankle PF = 3+/5, B big toe and digital PF = 3/5 Coordination Assessment Gross Coordination Gross Coordination WNL Sensation Assessment Sensation Gross Sensation Right LE Impaired,Left LE Impaired Light Touch Impaired Proprioception (Position) Impaired Sensation Description Paresthesia,Numbness,Tingling Comments Sensation Comments gross limited sensation to light touch, pressure and proprioception for both ankles and feet (R worse than L and dorsal worse than plantar) Unable to identify light touch at dorsal aspect of B feet; delayed response with pressure and proprioception decreased sensation to LT and pressure for lateral calfs. noticeable pain to B calf squeeze (R worse than L) LE reflexes are intact. Muscle Tone Muscle Tone WNL Yes Other Assessments Other Other Assessments Significant varicose veins on L calfs. M6 PT-IP Treatment Start: 07/22/19 08:24 Freq: NEEDED Status: Discharge Protocol: Document 07/23/19 11:35 HH (Rec: 07/23/19 12:37 HH [email or web address]) Physical Therapy Treatment Exercises Exercises Ankle Pumps Education Education Provided Precautions,Safety Equipment Issued Equipment Type and Company B rigid AFOs M7 PT-IP Assessment and Plan Start: 07/22/19 08:24 Freq: NEEDED Status: Discharge Protocol: Document 07/23/19 11:35 HH (Rec: 07/23/19 12:36 [email or web address]) PT Summary Assessment and Plan Potential Rehabilitation Potential Excellent Status of Condition at Evaluation Stable Summary Impairments ROM,Strength,Balance,Sensation ,Transfers,Gait,Activity Tolerance Progress Towards Goals Progressing Toward Goals Assessment Summary Pt has improved overall mobility without using AD. Improved heel strike and feet clearance during amb and stair climbing but cont fatigue easily after 300 ft. Applied B rigid AFOs showed improved step lenght and feet clearance , along with better eccentric control during stair climbing. Educated pt on blood sugar management and outpatient therapy to improve his ankle strength and balance. He is able to be d/c home at [facility]. Goals Bed Mobility Goal Independent Transfer Goal Independent,Cane,Front Wheeled Walker Gait Goal Independent,Cane,Front Wheel Walker Gait Distance 300 Other Goals climb 3 steps with B rail independently Days to Meet Goals 5 Frequency of Treatment Frequency Of Treatment Once a Day Treatment Plan Physical Therapy Treatment Plan Bed Mobility Training,Transfer Training,Gait Training, Therapeutic Exercise,Balance Retraining,Post Op Education, Discharge Planning,Hot or Cold Pack,Neuromuscular Re-ed Other Recommendations and Next Treatment check ortho order Focus check VSS mobility as richard, gait training ankle strengthening (DF) stair climbing Recommendations To Nursing Amount of Assist Needed Independent Discharge Recommendations PT Discharge Recommendations Home,Outpatient PT Equipment Needed for Home Before FWW if needed upon DC Discharge
[2019-07-25 09:41] LABS: Vitamin B1 175 nmol/L (78-185)
== END 2019-07-23 12:06 | disposition home or self-care (01) ==
LOC: ED 14:08 → AC 19:55
PROVIDERS: Emergency Medicine; Internal Medicine; Admitting Provider Nurse Practitioner Adult Health; Emergency Provider Nurse Practitioner Family; Visit Provider Nurse Practitioner Adult Health
DX: E11.42 Type 2 diabetes mellitus with diabetic polyneuropathy (principal); M21.372 Foot drop, left foot; M62.81 Muscle weakness (generalized); N17.9 Acute kidney failure, unspecified; E87.1 Hypo-osmolality and hyponatremia; E11.65 Type 2 diabetes mellitus with hyperglycemia; E11.43 Type 2 diabetes mellitus with diabetic autonomic (poly)neuropathy; Z79.4 Long term (current) use of insulin; K31.84 Gastroparesis; E86.0 Dehydration; E83.39 Other disorders of phosphorus metabolism; D69.59 Other secondary thrombocytopenia; F10.20 Alcohol dependence, uncomplicated; Y90.8 Blood alcohol level of 240 mg/100 ml or more; F17.210 Nicotine dependence, cigarettes, uncomplicated; W18.30XA Fall on same level, unspecified, initial encounter; I10 Essential (primary) hypertension; E78.5 Hyperlipidemia, unspecified
CPT/HCPCS: 36415; 70450; 72100; 72131; 72148; 76770; 80048; 80053; 80305; 80320; 81001; 82607; 82962; 83036; 83690; 83735; 84100; 84425; 84443; 85025; 93005; 93041; 96361; 96365; 96366; 96372; 97116; 97162; 97165; 97530; 99285; 99291; 99292; 99406; G0378; J1650; J3475

== ENCOUNTER → 2019-11-10 14:57 | Outpatient (CLI) | payer OTHER, SELFPAY ==
[2019-07-21 20:46] VITALS: BMI 26.2
--- NOTE | 2019-11-10 | DI.RAD.S_ITS ---
PROCEDURE: XR CHEST 2V INDICATIONS: Cough/short of breath TECHNIQUE: 2 views of the chest were acquired. COMPARISON: None. FINDINGS: Surgical changes and devices: None. Lungs and pleura: Lungs are clear. No pleural effusions or pneumothorax. Mediastinum: Mediastinal contours are normal. Heart size is normal. Bones and chest wall: No suspicious bony abnormalities. There is an approximate T10 anterior wedge deformity, without acute features. Mildly accentuated thoracic kyphosis can be seen. Soft tissues appear unremarkable. IMPRESSION: No focal infiltrates are seen. Dictated by: Murphy Joseph M.D. on 11/10/2019 at 15:15 Approved by: Murphy Joseph M.D. on 11/10/2019 at 15:15
== END ==
PROVIDERS: PCP Family Medicine; Referring Provider Family Medicine; Visit Provider Family Medicine
DX: R05 Cough (principal)
CPT/HCPCS: 71046

== ENCOUNTER 2019-11-15 10:49 | Emergency (ER) | payer OTHER, SELFPAY ==
[2019-07-21 20:46] VITALS: BMI 26.2
[2019-11-15] VITALS (8 sets, daily range): BP systolic 107–158; BP diastolic 63–97; PULSE 82–109; RESP 14–82; TEMP 37.4–37.8; O2SAT 94–100
--- NOTE | 2019-11-15 10:54 | DI.RAD.S_ITS ---
PROCEDURE: XR CHEST 1V INDICATIONS: cough, weakness TECHNIQUE: One view of the chest was acquired. COMPARISON: [facility], CR, XR CHEST 2V, 11/10/2019, 14:13. FINDINGS: Surgical changes and devices: None. Lungs and pleura: Lungs are clear. No pleural effusions or pneumothorax. Mediastinum: Mediastinal contours appear normal. Heart size is normal. Bones and chest wall: No suspicious bony lesions. Overlying soft tissues appear unremarkable. IMPRESSION: No acute cardiopulmonary process is evident. Dictated by: Shin Cohen M.D. on 11/15/2019 at 13:36 Approved by: Shin Cohen M.D. on 11/15/2019 at 13:36
[2019-11-15] MEDS: SODIUM CHLORIDE 0.9% 1,000 ML 1000 ML IV ×3 (12:01→17:36)
[2019-11-15 12:06] LABS: Add Manual Diff / Slide Review NO; Basophils Absolute Auto 0 /uL (0-100); Basophils Percent Auto 0.6 % (0-2); Eosinophils Absolute Auto 0 /uL (0-450); Eosinophils Percent Auto 0.6 % (2-4); Hematocrit 29.5 % (41-53); Hemoglobin 10.6 g/dL (13.5-17.5); Lymphocytes Absolute Auto 700 /uL (1100-4500); Lymphocytes Percent Auto 13.8 % (25-40); Mean Corpuscular HGB Conc 36.1 % (30-36); Mean Corpuscular Hemoglobin 34.9 PG (26-34); Mean Corpuscular Volume 96.5 fL (80-100); Monocytes Absolute Auto 600 /uL (0-900); Monocytes Percent Auto 12.2 % (3-14); Neutrophils Absolute Auto 3500 /uL (1500-7000); Neutrophils Percent Auto 72.8 % (50-75); Platelet Count 77 X10^3/uL (150-400); Red Blood Cell Count 3.05 X10^6/uL (4.5-5.9); Red Cell Distribution Width 14.8 % (11.6-14.8); White Blood Cell Count 4.8 X10^3/uL (4.5-11.0)
[2019-11-15 12:14] LABS: HEMOLYSIS < 15 (0-50)
[2019-11-15 12:16] LABS: D Dimer 312 ng/mL (<230)
[2019-11-15 12:18] LABS: Lactate (Lactic Acid) 3.1 mmol/L (0.7-2.1)
[2019-11-15 12:20] LABS: Alanine Aminotransferase 92 IU/L (<50); Albumin 4.5 g/dL (3.5-5.0); Albumin Globulin Ratio 1.2 (1.0-2.8); Alkaline Phosphatase 91 U/L (38-126); Aspartate Aminotransferase 418 IU/L (17-59); BUN Creatinine Ratio 16.9 (6-22); Bilirubin Total 2.1 mg/dL (0.2-1.3); Blood Urea Nitrogen 43 mg/dL (9-20); Carbon Dioxide 36 mmol/L (22-32); Estimated Glomerular Filt Rate 27.4 mL/min (>60); Globulin 3.7 g/dL (1.7-4.1); Glucose 355 mg/dL (70-100); Lipase 299 U/L (23-300); Magnesium 1.6 mg/dL (1.6-2.3); Sodium 128 mmol/L (137-145); Total Protein 8.2 g/dL (6.3-8.2)
[2019-11-15 12:26] LABS: Ketones (Beta-Hydroxybutyrate) 0.16 mmol/L (<0.27)
[2019-11-15 12:30] LABS: Troponin I 0.085 ng/mL (0.01-0.034)
[2019-11-15 12:39] LABS: Chloride 76 mmol/L (98-107)
[2019-11-15 12:43] LABS: Procalcitonin 0.91 ng/mL (<0.5)
--- NOTE | 2019-11-15 13:53 | ED_ITS ---
HPI - General Adult General Chief complaint: Fever Stated complaint: High Blood Sugar Time Seen by Provider: 11/15/19 10:50 Source: patient and EMS Mode of arrival: EMS Limitations: no limitations History of Present Illness HPI narrative: 43-year-old gentleman who reports that he has had an intermittent fever for the last 5 weeks. He works at [email or web address] and 3 weeks ago with a fever he was tested for COVID-19 and was negative room 3. A week after that with continued fever he was diagnosed with bronchitis and again tested Covid19 negative. Four days ago with continued fever possibility of pneumonia was enter tained and he was started on Augmentin. He reports feeling significantly improved for a 24 hour period and then symptoms returned again. He describes significant global weakness and bilateral lower extremity weakness that is bothering him more and presents to work today using a cane because of the lower extremity weakness. On review of systems questioning he reports that he had a very hard stool on Friday that then had a number of hours of dripping red blood that he attributed to hemorrhoidal bleeding. He has had no vomiting and no black stools no blood mixed in with stools he has not had a bowel movement since this last 1 and has had no bleeding since that episode ended. Today along with his severe weakness he also noted that he was dizzy when standing up and was orthostatic when measured. Additional medical problems include type 2 diabetes, hypertension, hyperlipidemia and alcohol use disorder. Related Data Home Medications Medication Instructions Recorded Confirmed aspirin 81 mg PO DAILY 11/10/18 07/21/19 atorvastatin 80 mg PO BEDTIME 11/10/18 07/21/19 hydrochlorothiazide 25 mg PO DAILY 11/15/19 11/15/19 lisinopril 40 mg PO DAILY 11/15/19 11/15/19 Previous Rx's Medication Instructions Recorded metformin 1,000 mg PO BID 30 Days #60 tab 07/23/19 pen needle, diabetic [Pen Needle] #100 each 07/23/19 Allergies Allergy/AdvReac Type Severity Reaction Status Date / Time No Known Drug Allergies Allergy Verified 07/21/19 13:53 Review of Systems Review of Systems Narrative: Pertinent positive and negative findings as per HPI Remainder of review of systems is otherwise unremarkable for ENT: No sore throat, neck pain, ear pain CV: Chest pain, palpitations, Respiratory: Cough, wheeze, GI: Nausea, vomiting, diarrhea, : Dysuria, hematuria, flank pain Skin: Rashes, nonhealing lesions Psych: Depression, anxiety, suicidal ideation Endocrine: Fatigue, heat or cold intolerance, very dry skin Heme: Easy bruising or bleeding Allergy: Seasonal rhinorrhea, itchy eyes Patient History Medical History Alcohol dependence (Inactive) Current every day smoker (Acute) Diabetes type 2, controlled (Acute) Hyperlipidemia (Inactive) Hypertension (Acute) Numbness in feet (Inactive) Pancreatitis (Acute) Surgical History History of toe surgery (Acute) Family History Father No known problems Mother Diabetes mellitus Social History household members: none Smoking Status: Current every day smoker alcohol intake: current Smoking Status: Current every day smoker alcohol intake frequency: 0-2 drinks per day Substance Use Type: does not use Exam Narrative Exam Narrative: General: Pale and moderately ill appearing but Able to give a complete and coherent history. Well-nourished well-developed HEENT: Moist mucous membranes, normal sclera with reactive pupils, Neck: No JVD, supple Respiratory: Lungs are clear to auscultation, no wheezing no rales no rhonchi. Full and symmetrical air movement Cardiac: Regular rate and rhythm no murmurs no bruits Abdomen: Soft nontender good bowel tones, no flank pain Skin: Warm and dry, no rashes, telangiectasias over his face Neurologic: Bilateral lower extremity weakness but no obvious asymmetries Extremities: No trauma, well perfused Psych: Cooperative, appropriate insight and affect Initial Vital Signs Initial Vital Signs: Vital Signs Temperature 99.8 F H 11/15/19 10:55 Pulse Rate 109 H 11/15/19 10:55 Respiratory Rate 30 H 11/15/19 10:55 Blood Pressure 129/71 11/15/19 10:55 Pulse Oximetry 94 11/15/19 10:55 Course Orders Ordered: Discontinued Medications Sodium Chloride (Normal Saline 0.9%) 1,000 mls @ 1,000 mls/hr IV BOLUS ONE Stop: 11/15/19 11:52 Last Infusion: 11/15/19 12:54 Dose: 0 mls/hr Documented by: Admin: 11/15/19 12:01 Dose: 1,000 mls/hr Documented by: SHERRY Piperacillin/Tazobactam/Dextrose (Zosyn) 3.375 gm in 50 mls @ 100 mls/hr IV NOW ONE Stop: 11/15/19 15:00 Last Infusion: 11/15/19 15:45 Dose: 0 mls/hr Documented by: Admin: 11/15/19 14:57 Dose: 100 mls/hr Documented by: SHERRY Sodium Chloride (Normal Saline 0.9%) 1,000 mls @ 1,000 mls/hr IV BOLUS ONE Stop: 11/15/19 15:30 Last Infusion: 11/15/19 16:38 Dose: 0 mls/hr Documented by: Admin: 11/15/19 14:57 Dose: 1,000 mls/hr Documented by: SHERRY Sodium Chloride (Normal Saline 0.9%) 1,000 mls @ 1,000 mls/hr IV BOLUS ONE Stop: 11/15/19 15:33 Last Infusion: 11/15/19 19:03 Dose: 1,000 mls/hr Documented by: Admin: 11/15/19 17:36 Dose: 1,000 mls/hr Documented by: SHERRY Vital Signs Vital signs: Vital Signs - 8 hr 11/15/19 10:55 11/15/19 11:30 11/15/19 12:30 Temperature 99.8 F H Pulse Rate 109 H 103 H 82 Respiratory Rate 30 H 23 82 H Blood Pressure 129/71 Blood Pressure [Right Arm] 107/63 157/84 H Pulse Oximetry 94 95 97 11/15/19 13:00 11/15/19 14:24 Temperature Pulse Rate 90 95 H Respiratory Rate 18 14 Blood Pressure Blood Pressure [Right Arm] 158/76 H 129/81 Pulse Oximetry 94 96 Medical Decision Making Medical Records Medical records reviewed: Yes I reviewed the patient's medical records. Lab Data Lab results reviewed: Yes I reviewed the patient's lab results. Lab results narrative: H&H significantly decreased 12.6/35.3 to 10.6/25.9 likely related to recent rectal blood loss described from Friday. No elevated white blood cell count D-dimer slightly elevated however again I suspect this is related to hemorrhoids and clotting that has since resulted Multiple electrolyte abnormalities all of which can certainly explain the global weakness Acute renal failure with a creatinine of 2.55, potassium of 3.0 and BUN at 43, will need Nephrology consult but not in urgent need of dialysis Lactic acid is elevated at 3.1 likely from volume depletion secondary to acute blood loss complicated by renal failure. Will recheck after rehydration. At this point I do not have a source for sepsis/infection he does continue to have temperatures in the 100 range not technically a fever. Procalcitonin is also elevated at 0.9. Will add antibiotic coverage lower continuing to sort out the clinical picture Bilirubin AST ALT are all slightly increased significantly so compared to July of 2019 without significant abdominal pain. Slightly elevated troponin, EKG does not show acute ischemic changes. May be related to decreased clearance due to renal function will need trending. [address] Dr [address] L[place] authorization to [facility]. #[id number] Result diagrams: 11/15/19 11:58 11/15/19 11:58 Labs: Lab Results 11/15/19 11/15/19 11/15/19 Range/Units 11:58 11:58 11:58 WBC 4.8 (4.5-11.0) X10^3/uL RBC 3.05 L (4.5-5.9) X10^6/uL Hgb 10.6 L (13.5-17.5) g/dL Hct 29.5 L (41-53) % MCV 96.5 (80-100) fL MCH 34.9 H (26-34) PG MCHC 36.1 H (30-36) % RDW 14.8 (11.6-14.8) % Plt Count 77 L (150-400) X10^3/uL Neut % (Auto) 72.8 (50-75) % Lymph % (Auto) 13.8 L (25-40) % [place] % (Auto) 12.2 (3-14) % Eos % (Auto) 0.6 L (2-4) % Baso % (Auto) 0.6 (0-2) % Neut # (Auto) 3500 (8163-1744) /uL Lymph # (Auto) 700 L (3901-7406) /uL [place] # (Auto) 600 (0-900) /uL Eos # (Auto) 0 (0-450) /uL Baso # (Auto) 0 (0-100) /uL D-Dimer 312 H (<230) ng/mL Sodium (137-145) mmol/L Potassium (3.4-5.1) mmol/L Chloride (98-107) mmol/L Carbon Dioxide (22-32) mmol/L BUN (9-20) mg/dL Creatinine (0.66-1.25) mg/dL Estimated GFR (>60) mL/min BUN/Creatinine Ratio (6-22) Glucose (70-100) mg/dL Lactate (0.7-2.1) mmol/L Calcium (8.4-10.2) mg/dL Magnesium (1.6-2.3) mg/dL Total Bilirubin (0.2-1.3) mg/dL AST (17-59) IU/L ALT (<50) IU/L Alkaline Phosphatase (38-126) U/L Troponin I (0.01-0.034) ng/mL Total Protein (6.3-8.2) g/dL Albumin (3.5-5.0) g/dL Globulin (1.7-4.1) g/dL Albumin/Globulin Ratio (1.0-2.8) Lipase (23-300) U/L Procalcitonin 0.91 H (<0.5) ng/mL Urine Color Urine Appearance Urine pH (4.5-8.0) Ur Specific [place] (1.000-1.035) Urine Protein (Negative) Urine Glucose (UA) (Negative) g/dL Urine Ketones (NEGATIVE) Urine Occult Blood (Negative) Urine Nitrate (Negative) Urine Bilirubin (NEGATIVE) Urine Urobilinogen (0.2) E.U./dL Ur Leukocyte Esterase (NEGATIVE) Urine RBC (0-5/HPF) Urine WBC (0-5/HPF) Ur Squamous Epith Cells (0-5/HPF) Amorphous Sediment Urine Bacteria (None) Urine Mucus (Negative) Ur Culture Indicated? Ketones (<0.27) mmol/L COVID-19 PCR (Not Detect) 11/15/19 11/15/19 11/15/19 Range/Units 11:58 11:58 11:58 WBC (4.5-11.0) X10^3/uL RBC (4.5-5.9) X10^6/uL Hgb (13.5-17.5) g/dL Hct (41-53) % MCV (80-100) fL MCH (26-34) PG MCHC (30-36) % RDW (11.6-14.8) % Plt Count (150-400) X10^3/uL Neut % (Auto) (50-75) % Lymph % (Auto) (25-40) % [place] % (Auto) (3-14) % Eos % (Auto) (2-4) % Baso % (Auto) (0-2) % Neut # (Auto) (9190-5290) /uL Lymph # (Auto) (5429-0486) /uL [place] # (Auto) (0-900) /uL Eos # (Auto) (0-450) /uL Baso # (Auto) (0-100) /uL D-Dimer (<230) ng/mL Sodium 128 L (137-145) mmol/L Potassium 3.0 L (3.4-5.1) mmol/L Chloride 76 L* (98-107) mmol/L Carbon Dioxide 36 H (22-32) mmol/L BUN 43 H (9-20) mg/dL Creatinine 2.55 H (0.66-1.25) mg/dL Estimated GFR 27.4 L (>60) mL/min BUN/Creatinine Ratio 16.9 (6-22) Glucose 355 H (70-100) mg/dL Lactate 3.1 H (0.7-2.1) mmol/L Calcium 10.0 (8.4-10.2) mg/dL Magnesium 1.6 (1.6-2.3) mg/dL Total Bilirubin 2.1 H (0.2-1.3) mg/dL AST 418 H (17-59) IU/L ALT 92 H (<50) IU/L Alkaline Phosphatase 91 (38-126) U/L Troponin I 0.085 H (0.01-0.034) ng/mL Total Protein 8.2 (6.3-8.2) g/dL Albumin 4.5 (3.5-5.0) g/dL Globulin 3.7 (1.7-4.1) g/dL Albumin/Globulin Ratio 1.2 (1.0-2.8) Lipase 299 (23-300) U/L Procalcitonin (<0.5) ng/mL Urine Color Urine Appearance Urine pH (4.5-8.0) Ur Specific [place] (1.000-1.035) Urine Protein (Negative) Urine Glucose (UA) (Negative) g/dL Urine Ketones (NEGATIVE) Urine Occult Blood (Negative) Urine Nitrate (Negative) Urine Bilirubin (NEGATIVE) Urine Urobilinogen (0.2) E.U./dL Ur Leukocyte Esterase (NEGATIVE) Urine RBC (0-5/HPF) Urine WBC (0-5/HPF) Ur Squamous Epith Cells (0-5/HPF) Amorphous Sediment Urine Bacteria (None) Urine Mucus (Negative) Ur Culture Indicated? Ketones 0.16 (<0.27) mmol/L COVID-19 PCR (Not Detect) 11/15/19 11/15/19 11/15/19 Range/Units 11:58 14:10 15:15 WBC (4.5-11.0) X10^3/uL RBC (4.5-5.9) X10^6/uL Hgb (13.5-17.5) g/dL Hct (41-53) % MCV (80-100) fL MCH (26-34) PG MCHC (30-36) % RDW (11.6-14.8) % Plt Count (150-400) X10^3/uL Neut % (Auto) (50-75) % Lymph % (Auto) (25-40) % [place] % (Auto) (3-14) % Eos % (Auto) (2-4) % Baso % (Auto) (0-2) % Neut # (Auto) (3403-5681) /uL Lymph # (Auto) (6080-9929) /uL [place] # (Auto) (0-900) /uL Eos # (Auto) (0-450) /uL Baso # (Auto) (0-100) /uL D-Dimer (<230) ng/mL Sodium (137-145) mmol/L Potassium (3.4-5.1) mmol/L Chloride (98-107) mmol/L Carbon Dioxide (22-32) mmol/L BUN (9-20) mg/dL Creatinine (0.66-1.25) mg/dL Estimated GFR (>60) mL/min BUN/Creatinine Ratio (6-22) Glucose (70-100) mg/dL Lactate (0.7-2.1) mmol/L Calcium (8.4-10.2) mg/dL Magnesium (1.6-2.3) mg/dL Total Bilirubin (0.2-1.3) mg/dL AST (17-59) IU/L ALT (<50) IU/L Alkaline Phosphatase (38-126) U/L Troponin I 0.073 H (0.01-0.034) ng/mL Total Protein (6.3-8.2) g/dL Albumin (3.5-5.0) g/dL Globulin (1.7-4.1) g/dL Albumin/Globulin Ratio (1.0-2.8) Lipase (23-300) U/L Procalcitonin (<0.5) ng/mL Urine Color Yellow Urine Appearance Slightly cloudy Urine pH 5.0 (4.5-8.0) Ur Specific [place] 1.010 (1.000-1.035) Urine Protein 1+ H (Negative) Urine Glucose (UA) 2+ H (Negative) g/dL Urine Ketones Negative (NEGATIVE) Urine Occult Blood 3+ H (Negative) Urine Nitrate Negative (Negative) Urine Bilirubin Negative (NEGATIVE) Urine Urobilinogen 0.2 (0.2) E.U./dL Ur Leukocyte Esterase Negative (NEGATIVE) Urine RBC 1-5/hpf (0-5/HPF) Urine WBC 0-1/hpf (0-5/HPF) Ur Squamous Epith Cells 0-1 /hpf (0-5/HPF) Amorphous Sediment 2+ Urine Bacteria None seen (None) Urine Mucus 1+ H (Negative) Ur Culture Indicated? Cult not indicated Ketones (<0.27) mmol/L COVID-19 PCR Not detected (Not Detect) 11/15/19 Range/Units 16:36 WBC (4.5-11.0) X10^3/uL RBC (4.5-5.9) X10^6/uL Hgb (13.5-17.5) g/dL Hct (41-53) % MCV (80-100) fL MCH (26-34) PG MCHC (30-36) % RDW (11.6-14.8) % Plt Count (150-400) X10^3/uL Neut % (Auto) (50-75) % Lymph % (Auto) (25-40) % [place] % (Auto) (3-14) % Eos % (Auto) (2-4) % Baso % (Auto) (0-2) % Neut # (Auto) (3497-1389) /uL Lymph # (Auto) (9856-9644) /uL [place] # (Auto) (0-900) /uL Eos # (Auto) (0-450) /uL Baso # (Auto) (0-100) /uL D-Dimer (<230) ng/mL Sodium (137-145) mmol/L Potassium (3.4-5.1) mmol/L Chloride (98-107) mmol/L Carbon Dioxide (22-32) mmol/L BUN (9-20) mg/dL Creatinine (0.66-1.25) mg/dL Estimated GFR (>60) mL/min BUN/Creatinine Ratio (6-22) Glucose (70-100) mg/dL Lactate 2.7 H (0.7-2.1) mmol/L Calcium (8.4-10.2) mg/dL Magnesium (1.6-2.3) mg/dL Total Bilirubin (0.2-1.3) mg/dL AST (17-59) IU/L ALT (<50) IU/L Alkaline Phosphatase (38-126) U/L Troponin I (0.01-0.034) ng/mL Total Protein (6.3-8.2) g/dL Albumin (3.5-5.0) g/dL Globulin (1.7-4.1) g/dL Albumin/Globulin Ratio (1.0-2.8) Lipase (23-300) U/L Procalcitonin (<0.5) ng/mL Urine Color Urine Appearance Urine pH (4.5-8.0) Ur Specific [place] (1.000-1.035) Urine Protein (Negative) Urine Glucose (UA) (Negative) g/dL Urine Ketones (NEGATIVE) Urine Occult Blood (Negative) Urine Nitrate (Negative) Urine Bilirubin (NEGATIVE) Urine Urobilinogen (0.2) E.U./dL Ur Leukocyte Esterase (NEGATIVE) Urine RBC (0-5/HPF) Urine WBC (0-5/HPF) Ur Squamous Epith Cells (0-5/HPF) Amorphous Sediment Urine Bacteria (None) Urine Mucus (Negative) Ur Culture Indicated? Ketones (<0.27) mmol/L COVID-19 PCR (Not Detect) Imaging Data Chest x-ray: Radiologist's Impression: IMPRESSION: No acute cardiopulmonary process is evident. Dictated by: Shin Cohen M.D. on 11/15/2019 at 13:36 ECG Data Attestation: I personally reviewed and interpreted this ECG as follows: Interpretation: Sinus tachycardia at a rate of 107 Peaked T-waves Normal axis normal intervals No acute ischemic findings MDM Narrative Medical decision making narrative: 43-year-old gentleman presents with worsening weakness particularly in the lower extremities with 5 weeks of low-grade fevers 2 Covid19 test negative. Rectal bleeding after a hard stool this weekend and noted to have acute anemia, dehydration, acute renal failure no localizing sign for infection. Procalcitonin is elevated LFTs are slightly up. He is given volume resuscitation and started on Zosyn in light of the elevated lactic acid low-grade fevers and uncertain diagnosis at this time. A 3rd covid screening test was done today At this point, he needs additional evaluation, and may need nephrology consultation. For that reason we will admit him to [facility]. Talk with Dr. Coombs, who accepts admission to [facility]. Will confirm that this transfer and admission is appropriate for his insurance([employer]). He is hemodynamically stable and safe for transfer to [facility] at this time Discharge Plan Departure Patient Disposition: [facility] Clinical Impression: Acute hypokalemia, Acute hyponatremia, Elevated LFTs Acute renal failure Qualifiers: Acute renal failure type: unspecified Qualified Code(s): N17.9 - Acute kidney failure, unspecified Fever Qualifiers: Fever type: unspecified Qualified Code(s): R50.9 - Fever, unspecified Discharge Date/Time: 11/15/19 19:11 Prescriptions: No Action atorvastatin 80 mg Tablet 80 mg PO BEDTIME RF: 0 aspirin 81 mg Tablet,Delayed Release (Dr/Ec) 81 mg PO DAILY RF: 0 (DME) pen needle, diabetic [Pen Needle] 31 gauge x 3/16 needle See Rx Instructions .ROUTE .MEDSUPPLY Qty: 100 RF: 0 metformin 1,000 mg Tablet 1,000 mg PO BID 30 Days Qty: 60 RF: 0 hydrochlorothiazide 25 mg tablet 25 mg PO DAILY RF: 0 lisinopril 40 mg tablet 40 mg PO DAILY RF: 0 Referrals: Latia Huynh MD [Primary Care Provider] -
[2019-11-15 14:02] LABS: Reflexed Lactate in 2 Hours Y
[2019-11-15] MEDS: PIPERACILLIN-TAZO 3.375 GM/50 ML FROZ.PIGGY IV (14:57)
[2019-11-15 15:31] LABS: Bacteria Urine None Seen
[2019-11-15 15:33] LABS: Troponin I 0.073 ng/mL (0.01-0.034)
[2019-11-15 15:35] LABS: Bilirubin Urine UA NEGATIVE (NEGATIVE); Color Urine UA YELLOW; Glucose Urine UA 2+ g/dL (Negative); Ketones Urine UA NEGATIVE (NEGATIVE); Leukocyte Esterase Urine UA NEGATIVE (NEGATIVE); Nitrite Urine UA NEGATIVE (Negative); Occult Blood Urine UA 3+ (Negative); Protein Urine UA 1+ (Negative); Urobilinogen Urine UA 0.2 E.U./dL (0.2)
[2019-11-15 15:43] LABS: Amorphous Sediment Urine 2+; Appearance Urine UA Slightly Cloudy; RBC Urine 1-5/HPF (0-5/HPF); Squamous Epithelial Cell Urine 0-1 /HPF (0-5/HPF); WBC Urine 0-1/HPF (0-5/HPF)
[2019-11-15 15:44] LABS: Culture Indicated Urine Cult Not Indicated; Mucus Urine 1+ (Negative)
[2019-11-15 16:53] LABS: Lactate (Lactic Acid) 2.7 mmol/L (0.7-2.1)
[2019-11-15 18:39] LABS: Reflexed Lactate in 2 Hours Y
--- NOTE | 2019-11-15 19:10 | PC.NURSE ---
Report given to GUALBERTO Stout [facility]. made aware pt arrival approx 20 min
[2019-11-15 22:18] LABS: COVID19 Sendout Not Detected (Not Detect)
== END 2019-11-15 19:11 | disposition short-term general hospital (02) ==
PROVIDERS: Emergency Provider Emergency Medicine; PCP Family Medicine
DX: E87.6 Hypokalemia (principal); E87.1 Hypo-osmolality and hyponatremia; R79.89 Other specified abnormal findings of blood chemistry; N17.9 Acute kidney failure, unspecified; R50.9 Fever, unspecified; E11.9 Type 2 diabetes mellitus without complications; I10 Essential (primary) hypertension; E78.5 Hyperlipidemia, unspecified
CPT/HCPCS: 36415; 71045; 80053; 81001; 82009; 83605; 83690; 83735; 84145; 84484; 85025; 85379; 87040; 87635; 93005; 96361; 96365; 99284; J2543

== ENCOUNTER → 2021-08-03 08:38 | Outpatient (CLI) | payer BC, SELFPAY ==
[2019-07-21 20:46] VITALS: BMI 26.2
== END ==
PROVIDERS: Family Provider Internal Medicine; PCP Internal Medicine; Referring Provider Internal Medicine; Visit Provider Nurse Practitioner Family
DX: E11.621 Type 2 diabetes mellitus with foot ulcer (principal); L97.512 Non-pressure chronic ulcer of other part of right foot with fat layer exposed; L08.9 Local infection of the skin and subcutaneous tissue, unspecified
CPT/HCPCS: 11042; 36415; 73660; 85025; 85651; 86140; 87070; 87075; 87077; 87186; 87205; 99204; 99214

== ENCOUNTER → 2021-08-03 10:02 | Outpatient (CLI) | payer BC, SELFPAY ==
[2019-07-21 20:46] VITALS: BMI 26.2
--- NOTE | 2021-08-03 | DI.RAD.S_ITS ---
PROCEDURE: XR TOE RT MIN 2V INDICATIONS: EVAL FOR OSTEO TECHNIQUE: AP view of the right foot and 3 views of the 1st toe(s) acquired. COMPARISON: None. FINDINGS: Bones: No fractures or dislocations. No cortical destruction to suggest osteomyelitis. Absence of the 2nd distal and proximal phalanges, likely reflecting amputation. Deformity of the 3rd and 5th proximal interphalangeal joints, which may reflect prior traumatic injury. Degenerative change of the hallux sesamoids. Soft tissues: No suspicious soft tissue densities. IMPRESSION: No evidence of osteomyelitis involving the 1st digit. Dictated by: Griffin Baker M.D. on 08/03/2021 at 10:56 Approved by: Griffin Baker M.D. on 08/03/2021 at 10:59
[2021-08-03 11:56] LABS: Add Manual Diff / Slide Review NO; Basophils Absolute Auto 0 /uL (0-100); Basophils Percent Auto 0.7 % (0-2); Eosinophils Absolute Auto 200 /uL (0-450); Eosinophils Percent Auto 3.2 % (2-4); Hematocrit 40.8 % (41-53); Hemoglobin 13.8 g/dL (13.5-17.5); Lymphocytes Absolute Auto 1800 /uL (1100-4500); Lymphocytes Percent Auto 36.2 % (25-40); Mean Corpuscular HGB Conc 33.9 % (30-36); Mean Corpuscular Hemoglobin 30.9 PG (26-34); Mean Corpuscular Volume 91.2 fL (80-100); Monocytes Absolute Auto 400 /uL (0-900); Monocytes Percent Auto 8.3 % (3-14); Neutrophils Absolute Auto 2500 /uL (1500-7000); Neutrophils Percent Auto 51.6 % (50-75); Platelet Count 91 X10^3/uL (150-400); Red Blood Cell Count 4.47 X10^6/uL (4.5-5.9); Red Cell Distribution Width 13.6 % (11.6-14.8); White Blood Cell Count 4.9 X10^3/uL (4.5-11.0)
[2021-08-03 12:10] LABS: C-Reactive Protein Quant < 0.5 mg/dL (<1.0)
[2021-08-03 12:12] LABS: Erythrocyte Sedimentation Rate 18 MM/HR (0-15)
== END ==
PROVIDERS: Family Provider Internal Medicine; PCP Internal Medicine; Referring Provider Nurse Practitioner Family; Visit Provider Nurse Practitioner Family
DX: L08.9 Local infection of the skin and subcutaneous tissue, unspecified (principal); E11.621 Type 2 diabetes mellitus with foot ulcer
CPT/HCPCS: 36415; 73660; 85025; 85651; 86140

== ENCOUNTER → 2021-08-17 10:03 | Outpatient (CLI) | payer BC, SELFPAY ==
[2019-07-21 20:46] VITALS: BMI 26.2
== END ==
PROVIDERS: Family Provider Internal Medicine; PCP Internal Medicine; Referring Provider Internal Medicine; Visit Provider Nurse Practitioner Family
DX: E11.621 Type 2 diabetes mellitus with foot ulcer (principal); L97.515 Non-pressure chronic ulcer of other part of right foot with muscle involvement without evidence of necrosis; L08.9 Local infection of the skin and subcutaneous tissue, unspecified; L84 Corns and callosities; E11.40 Type 2 diabetes mellitus with diabetic neuropathy, unspecified; I10 Essential (primary) hypertension; E78.5 Hyperlipidemia, unspecified; Z79.4 Long term (current) use of insulin; Z89.421 Acquired absence of other right toe(s)
CPT/HCPCS: 11042

== ENCOUNTER → 2021-08-24 11:08 | Outpatient (CLI) | payer BC, SELFPAY ==
[2019-07-21 20:46] VITALS: BMI 26.2
== END ==
PROVIDERS: Family Provider Internal Medicine; PCP Internal Medicine; Referring Provider Internal Medicine; Visit Provider Nurse Practitioner Family
DX: E11.621 Type 2 diabetes mellitus with foot ulcer (principal); L97.515 Non-pressure chronic ulcer of other part of right foot with muscle involvement without evidence of necrosis; L08.9 Local infection of the skin and subcutaneous tissue, unspecified; L84 Corns and callosities; E11.40 Type 2 diabetes mellitus with diabetic neuropathy, unspecified; I10 Essential (primary) hypertension; E78.5 Hyperlipidemia, unspecified; Z79.4 Long term (current) use of insulin; Z89.421 Acquired absence of other right toe(s)
CPT/HCPCS: 11042

== ENCOUNTER → 2021-09-07 12:01 | Outpatient (CLI) | payer BC, SELFPAY ==
[2019-07-21 20:46] VITALS: BMI 26.2
== END ==
PROVIDERS: Family Provider Internal Medicine; PCP Internal Medicine; Referring Provider Internal Medicine; Visit Provider Nurse Practitioner Family
DX: E11.621 Type 2 diabetes mellitus with foot ulcer (principal); L97.512 Non-pressure chronic ulcer of other part of right foot with fat layer exposed; L08.9 Local infection of the skin and subcutaneous tissue, unspecified; L84 Corns and callosities; R60.0 Localized edema; E11.40 Type 2 diabetes mellitus with diabetic neuropathy, unspecified; I10 Essential (primary) hypertension; E78.5 Hyperlipidemia, unspecified; Z89.421 Acquired absence of other right toe(s); Z79.4 Long term (current) use of insulin
CPT/HCPCS: 11042; 36415; 83036; 85025; 85651; 86140; 87070; 87077; 87186; 87205; 99213; 99214

== ENCOUNTER → 2021-09-07 12:21 | Outpatient (CLI) | payer BC, SELFPAY ==
[2019-07-21 20:46] VITALS: BMI 26.2
[2021-09-07 15:12] LABS: Add Manual Diff / Slide Review NO; Basophils Absolute Auto 0 /uL (0-100); Basophils Percent Auto 0.6 % (0-2); Eosinophils Absolute Auto 200 /uL (0-450); Eosinophils Percent Auto 2.8 % (2-4); Hematocrit 42.1 % (41-53); Hemoglobin 14.5 g/dL (13.5-17.5); Lymphocytes Absolute Auto 2100 /uL (1100-4500); Lymphocytes Percent Auto 32.5 % (25-40); Mean Corpuscular HGB Conc 34.4 % (30-36); Mean Corpuscular Hemoglobin 31.9 PG (26-34); Mean Corpuscular Volume 92.6 fL (80-100); Monocytes Absolute Auto 500 /uL (0-900); Monocytes Percent Auto 7.5 % (3-14); Neutrophils Absolute Auto 3700 /uL (1500-7000); Neutrophils Percent Auto 56.6 % (50-75); Platelet Count 103 X10^3/uL (150-400); Red Blood Cell Count 4.54 X10^6/uL (4.5-5.9); Red Cell Distribution Width 13.8 % (11.6-14.8); White Blood Cell Count 6.6 X10^3/uL (4.5-11.0)
[2021-09-07 15:17] LABS: Hemoglobin A1C% w Est Avg Glu 6.6 % (4.0-6.0)
[2021-09-07 15:49] LABS: C-Reactive Protein Quant < 0.5 mg/dL (<1.0)
[2021-09-07 15:51] LABS: Erythrocyte Sedimentation Rate 14 MM/HR (0-15)
== END ==
PROVIDERS: Family Provider Internal Medicine; PCP Internal Medicine; Referring Provider Nurse Practitioner Family; Visit Provider Nurse Practitioner Family
DX: E11.621 Type 2 diabetes mellitus with foot ulcer (principal); L08.9 Local infection of the skin and subcutaneous tissue, unspecified
CPT/HCPCS: 36415; 83036; 85025; 85651; 86140; 87070; 87075; 87077; 87186; 87205

== ENCOUNTER → 2021-09-14 07:58 | Outpatient (CLI) | payer BC, SELFPAY ==
[2019-07-21 20:46] VITALS: BMI 26.2
--- NOTE | 2021-09-14 | DI.MRI.S_ITS ---
PROCEDURE: MR FOOT RT WO/W CON INDICATIONS: Type 2 diabetes mellitus with foot ulcer TECHNIQUE: Noncontrast sagittal T1 spin echo and T2 fast spin echo with fat saturation, long-axis T1 spin echo and T2 fast spin echo with fat saturation; short-axis T1 spin echo, proton density fast spin echo, and T2 fast spin echo with fat saturation through the forefoot. Post-contrast short axis, long axis, and sagittal T1 spin echo with fat saturation through the forefoot. COMPARISON: [facility], CR, XR TOE RT MIN 2V, 08/03/2021, 10:05. FINDINGS: Image quality: Excellent. Bones and joints: Mild T2-hyperintense signal is seen in the mid to distal portion of the 1st distal phalanx without significantly decreased T1 signal intensity or significant enhancement. Truncation of the distal 2nd digit is most likely secondary to a prior amputation. Mild degenerative changes are seen in the 1st metatarsophalangeal joint. No bone marrow contusions or metatarsal stress fractures. Mild degenerative changes are seen in the metatarsosesamoid articulations. Soft tissues: A skin marker is seen at the plantar medial aspect of the great toe at the level of the interphalangeal joint with adjacent skin thickening. No subcutaneous fluid collection or abscess is seen. Mild edema is seen within the intrinsic foot musculature with grade 1-2 fatty infiltration, likely related to denervation changes. Chronic pressure related changes are seen in the subcutaneous tissues plantar to the 4th metatarsal head with mild associated enhancement. Visualized flexor and extensor tendons appear intact, without tenosynovitis. The distal insertions of the peroneus brevis and longus tendons appear intact. The principal Lisfranc ligament appears intact. No soft tissue ganglion cysts or bursal fluid collections. Sagittal images demonstrate no evidence for plantar plate tears. IMPRESSION: 1. Mild skin thickening adjacent to the skin marker at the plantar aspect of the great toe. No fluid collection is seen to suggest abscess. 2. Mildly increased T2-weighted signal within the mid to distal portion of the 1st distal phalanx without significant T1 hypointense signal or enhancement, which is nonspecific and favored to be reactive rather than secondary to osteomyelitis. No cortical destruction is seen. 3. Postsurgical changes from partial amputation of the 2nd toe. 4. Mild edema and subtle fatty infiltration within the intrinsic foot musculature is likely secondary to denervation changes. Dictated by: Emery Montero M.D. on 09/14/2021 at 10:04 Approved by: Emery Montero M.D. on 09/14/2021 at 10:17
== END ==
PROVIDERS: Family Provider Internal Medicine; PCP Internal Medicine; Referring Provider Nurse Practitioner Family; Visit Provider Nurse Practitioner Family
DX: E11.621 Type 2 diabetes mellitus with foot ulcer (principal); L97.512 Non-pressure chronic ulcer of other part of right foot with fat layer exposed
CPT/HCPCS: 73720; A9579

== ENCOUNTER → 2021-09-14 12:08 | Outpatient (CLI) | payer BC, SELFPAY ==
[2019-07-21 20:46] VITALS: BMI 26.2
== END ==
PROVIDERS: Family Provider Internal Medicine; PCP Internal Medicine; Referring Provider Internal Medicine; Visit Provider Nurse Practitioner Family
DX: E11.621 Type 2 diabetes mellitus with foot ulcer (principal); L97.512 Non-pressure chronic ulcer of other part of right foot with fat layer exposed; L08.9 Local infection of the skin and subcutaneous tissue, unspecified; L84 Corns and callosities; E11.40 Type 2 diabetes mellitus with diabetic neuropathy, unspecified; E78.5 Hyperlipidemia, unspecified; I10 Essential (primary) hypertension; Z89.421 Acquired absence of other right toe(s); Z79.4 Long term (current) use of insulin; Z79.84 Long term (current) use of oral hypoglycemic drugs
CPT/HCPCS: 11042

== ENCOUNTER → 2021-09-21 09:53 | Outpatient (CLI) | payer BC, SELFPAY ==
[2019-07-21 20:46] VITALS: BMI 26.2
== END ==
PROVIDERS: Family Provider Internal Medicine; PCP Internal Medicine; Referring Provider Internal Medicine; Visit Provider Nurse Practitioner Family
DX: E11.621 Type 2 diabetes mellitus with foot ulcer (principal); L97.512 Non-pressure chronic ulcer of other part of right foot with fat layer exposed; L08.9 Local infection of the skin and subcutaneous tissue, unspecified; L84 Corns and callosities; R60.0 Localized edema; E11.40 Type 2 diabetes mellitus with diabetic neuropathy, unspecified; I10 Essential (primary) hypertension; E78.5 Hyperlipidemia, unspecified; Z79.4 Long term (current) use of insulin; Z89.421 Acquired absence of other right toe(s)
CPT/HCPCS: 11042; 87070; 87075; 87077; 87186; 87205; 99212; 99213

== ENCOUNTER → 2021-09-28 11:57 | Outpatient (CLI) | payer BC, SELFPAY ==
[2019-07-21 20:46] VITALS: BMI 26.2
== END ==
PROVIDERS: Family Provider Internal Medicine; PCP Internal Medicine; Referring Provider Internal Medicine; Visit Provider Nurse Practitioner Family
DX: E11.621 Type 2 diabetes mellitus with foot ulcer (principal); L97.512 Non-pressure chronic ulcer of other part of right foot with fat layer exposed; L08.9 Local infection of the skin and subcutaneous tissue, unspecified; L84 Corns and callosities; E11.40 Type 2 diabetes mellitus with diabetic neuropathy, unspecified; I10 Essential (primary) hypertension; E78.5 Hyperlipidemia, unspecified; Z79.4 Long term (current) use of insulin; Z79.84 Long term (current) use of oral hypoglycemic drugs; Z89.421 Acquired absence of other right toe(s)
CPT/HCPCS: 11042; 99213

== ENCOUNTER → 2021-10-05 09:55 | Outpatient (CLI) | payer BC, SELFPAY ==
[2019-07-21 20:46] VITALS: BMI 26.2
== END ==
PROVIDERS: Family Provider Internal Medicine; PCP Internal Medicine; Referring Provider Internal Medicine; Visit Provider Nurse Practitioner Family
DX: E11.621 Type 2 diabetes mellitus with foot ulcer (principal); L97.512 Non-pressure chronic ulcer of other part of right foot with fat layer exposed; L84 Corns and callosities; L08.9 Local infection of the skin and subcutaneous tissue, unspecified; E11.40 Type 2 diabetes mellitus with diabetic neuropathy, unspecified; I10 Essential (primary) hypertension; E78.5 Hyperlipidemia, unspecified; Z79.4 Long term (current) use of insulin; Z89.421 Acquired absence of other right toe(s)
CPT/HCPCS: 11042; 99213

== ENCOUNTER → 2021-10-12 10:04 | Outpatient (CLI) | payer BC, SELFPAY ==
[2019-07-21 20:46] VITALS: BMI 26.2
== END ==
PROVIDERS: Family Provider Internal Medicine; PCP Internal Medicine; Referring Provider Internal Medicine; Visit Provider Nurse Practitioner Family
DX: E11.621 Type 2 diabetes mellitus with foot ulcer (principal); L97.512 Non-pressure chronic ulcer of other part of right foot with fat layer exposed; L08.9 Local infection of the skin and subcutaneous tissue, unspecified; L84 Corns and callosities; E11.40 Type 2 diabetes mellitus with diabetic neuropathy, unspecified; I10 Essential (primary) hypertension; E78.5 Hyperlipidemia, unspecified; Z79.4 Long term (current) use of insulin; Z89.421 Acquired absence of other right toe(s)
CPT/HCPCS: 11042

== ENCOUNTER → 2021-10-26 09:08 | Outpatient (CLI) | payer BC, SELFPAY ==
[2019-07-21 20:46] VITALS: BMI 26.2
== END ==
PROVIDERS: Family Provider Internal Medicine; PCP Internal Medicine; Referring Provider Internal Medicine; Visit Provider Nurse Practitioner Family
DX: E11.621 Type 2 diabetes mellitus with foot ulcer (principal); L97.512 Non-pressure chronic ulcer of other part of right foot with fat layer exposed; L84 Corns and callosities; E11.40 Type 2 diabetes mellitus with diabetic neuropathy, unspecified; I10 Essential (primary) hypertension; E78.5 Hyperlipidemia, unspecified; Z79.4 Long term (current) use of insulin; Z91.19 Patient's noncompliance with other medical treatment and regimen; Z89.421 Acquired absence of other right toe(s)
CPT/HCPCS: 11042; 99213

== ENCOUNTER → 2021-11-09 08:30 | Outpatient (CLI) | payer BC, SELFPAY ==
[2019-07-21 20:46] VITALS: BMI 26.2
== END ==
PROVIDERS: Family Provider Internal Medicine; PCP Internal Medicine; Referring Provider Internal Medicine; Visit Provider Nurse Practitioner Family
DX: E11.621 Type 2 diabetes mellitus with foot ulcer (principal); L97.515 Non-pressure chronic ulcer of other part of right foot with muscle involvement without evidence of necrosis; Z91.19 Patient's noncompliance with other medical treatment and regimen; L08.9 Local infection of the skin and subcutaneous tissue, unspecified
CPT/HCPCS: 11043; 87070; 87077; 87186; 87205; 99213